=== PATIENT | female | born 1945 | race Caucasian/White ===

== ENCOUNTER → 2017-04-12 | Day surgery (SDC) | payer MEDICARE ==
[~2017-04-12] VITALS: Ht 157.5 cm; Wt 75.0 kg
[~2017-04-12] MED LIST: ACETAMINOPHEN 325 MG TAB PO PRN; ASPI81CH CHEW; CHLORHEXIDINE GLUCONATE 2 % 1 PACK (2 CLOTHS) TOPICAL PRN; CLON.5 PO; CYCLOPENTOLATE HCL 1% OPHT SOLN 2 ML BTL ONE; FLURBIPROFEN 0.03% OPHT SOLN 2.5 ML BTL ONE; FOLI1TAB6 PO; GABA300C5 PO; INSULIN HUMAN REGULAR 1,000 UNITS/10 ML VIAL SQ PRN; ISOS60TA PO; LACTATED RINGER'S 1000 ML IV PRN; LIDOCAINE HCL 1% PF 30 ML VIAL ONE; LIDOCAINE HCL 2% JELLY 5 ML SYRINGE ONE; LIDOCAINE HCL 2% JELLY 5 ML SYRINGE TOPICAL ONE; LISI40TA PO; METH0.35; METH2.5T PO; METO50TA PO; METOPROLOL TARTRATE 25 MG TAB PO PRN; MIDAZOLAM HCL 2 MG/2 ML VIAL IV ONE; NITR0.4S SL; NORV2.5T PO; NOVOLOGP2 SQ; NOVONP2 SQ; OMEG1CAP53 PO; PHENYLEPHRINE HCL 10% OPTH SOLN 5 ML BTL ONE; PLAV75TA29 PO; POVIDONE IODINE 5% (ANTISEPSIS KIT) 4 APPLICATIONS EACH NARE PRN; PRED20 PO; PROPARACAINE HCL 0.5% OPHT SOLN 15 ML BTL LEFT EYE ONE; PROPARACAINE HCL 0.5% OPHT SOLN 15 ML BTL ONE; SODIUM CHLORID 0.9% 500 ML IV PRN; TOBRAMYCIN/DEXAMETHASONE OPTH OINT 3.5 GM TUBE ONE; TROPICAMIDE 1% OPHT SOLN 15 ML BTL ONE; ULTR50TA5 PO; VENTAER INH; VISCOAT OPHT IRRIG SOLN 0.75 ML SYRINGE ONE; VITA1000 PO
[2017-04-12 06:43] VITALS: BP 163/78; PULSE 62; RESP 18; TEMP 98.9; O2SAT 100
[2017-04-12] MEDS: CYCLOPENTOLATE HCL 1% OPHT SOLN 2 ML BTL LEFT EYE SCH ×4 (06:52→07:07)
[2017-04-12] MEDS: PHENYLEPHRINE HCL 10% OPTH SOLN 5 ML BTL LEFT EYE SCH ×4 (06:52→07:07)
[2017-04-12] MEDS: TROPICAMIDE 1% OPHT SOLN 15 ML BTL LEFT EYE SCH ×4 (06:52→07:07)
[2017-04-12] MEDS: FLURBIPROFEN 0.03% OPHT SOLN 2.5 ML BTL LEFT EYE SCH ×4 (06:52→07:07)
[2017-04-12 09:00] VITALS: TEMP 98.6
[2017-04-12 09:15] VITALS: BP 146/66; PULSE 59; RESP 16; O2SAT 99
--- NOTE | 2017-04-12 10:44 | MP ---
cc: CHRISTOS SILVERIO M.D. [facility] #[id number] DATE OF SURGERY 04/12/2017 PREOPERATIVE DIAGNOSIS Visually significant cataract left eye. POSTOPERATIVE DIAGNOSIS Visually significant cataract left eye. OPERATION Phacoemulsification with posterior chamber lens implantation, left eye. SURGEON Christos Silverio MD ANESTHESIA Retrobulbar with MAC. COMPLICATIONS None PROCEDURE After informed consent was obtained, the patient was brought into the operative suite and placed on appropriate monitors by the Anesthesia Service. The patient had received a prior retrobulbar injection of local anesthetic by the Anesthesia Service in the holding area. The patient's operative eye was then prepped and draped in the usual sterile fashion. A wire lid speculum was placed. A paracentesis incision was made in the peripheral cornea with a 1 mm morgan keratome. The anterior chamber was filled with viscoelastic. The anterior chamber was then entered through a stepped, clear corneal incision using a sharp 3 mm morgan keratome. A circular tear capsulorrhexis was then made with a bent needle cystitome. Following hydrodissection of the lens nucleus with balanced saline, phacoemulsification of the nucleus was performed using a modified chopping technique. The remaining cortex was removed with irrigation/aspiration. The prior two procedures were both performed using the handpieces of the [employer] phaco unit. The capsular bag was then filled with viscoelastic. The intraocular lens was then injected into the capsular bag and positioned. The type of intraocular lens and its power can be found elsewhere in this chart. The remaining viscoelastic was then removed from the anterior chamber with the IA handpiece. The anterior chamber was reformed with balanced saline. The wound was then closed securely with stromal hydration. It was found to be watertight to an intraocular pressure of at least 30 mmHg by palpation. A small amount of balanced salt solution was then removed through the paracentesis site and the intraocular pressure at the end of the case was approximately 20 by palpation. All drapes were then removed. TobraDex ointment was then placed in the eye, which was closed beneath a semi-pressure patch dressing. The patient tolerated this procedure well and left the operating room awake and alert. The patient is to follow-up in my office in the morning. MD RAJNI Muir/KOSTAS /10:26 AM /10:39 AM
== END | disposition home or self-care (01) ==
LOC: PHSDC 06:25
PROVIDERS: ATTEND Optometrist Occupational Vision
DX: H25.812 Combined forms of age-related cataract, left eye (principal); H04.123 Dry eye syndrome of bilateral lacrimal glands; I12.9 Hypertensive chronic kidney disease with stage 1 through stage 4 chronic kidney disease, or unspecified chronic kidney disease; N18.9 Chronic kidney disease, unspecified; E11.21 Type 2 diabetes mellitus with diabetic nephropathy; M54.12 Radiculopathy, cervical region; I25.10 Atherosclerotic heart disease of native coronary artery without angina pectoris; J44.9 Chronic obstructive pulmonary disease, unspecified; K76.0 Fatty (change of) liver, not elsewhere classified; M79.7 Fibromyalgia; K21.9 Gastro-esophageal reflux disease without esophagitis; E78.5 Hyperlipidemia, unspecified; M19.90 Unspecified osteoarthritis, unspecified site; E55.9 Vitamin D deficiency, unspecified; M54.16 Radiculopathy, lumbar region; R00.1 Bradycardia, unspecified; I25.2 Old myocardial infarction; L40.50 Arthropathic psoriasis, unspecified; I08.0 Rheumatic disorders of both mitral and aortic valves; M54.81 Occipital neuralgia; E66.9 Obesity, unspecified; Z68.30 Body mass index [BMI] 30.0-30.9, adult; Z98.61 Coronary angioplasty status; Z87.891 Personal history of nicotine dependence; Z79.01 Long term (current) use of anticoagulants; Z79.82 Long term (current) use of aspirin; Z79.4 Long term (current) use of insulin; Z79.891 Long term (current) use of opiate analgesic; Z79.899 Other long term (current) drug therapy
CPT/HCPCS: 00142; 66984; 82948; J2250; J7040; V2632

== ENCOUNTER → 2017-05-24 | Day surgery (SDC) | payer MEDICARE ==
[~2017-05-24] VITALS: Ht 157.5 cm; Wt 75.0 kg
[~2017-05-24] MED LIST changes: -CYCLOPENTOLATE HCL 1% OPHT SOLN 2 ML BTL ONE; -FLURBIPROFEN 0.03% OPHT SOLN 2.5 ML BTL ONE; +ISOS30TA3 PO; -ISOS60TA PO; -LIDOCAINE HCL 2% JELLY 5 ML SYRINGE ONE; -METH0.35; -METH2.5T PO; +METH3INJ; -MIDAZOLAM HCL 2 MG/2 ML VIAL IV ONE; +MIDAZOLAM HCL 2 MG/2 ML VIAL ONE; -NOVOLOGP2 SQ; -PHENYLEPHRINE HCL 10% OPTH SOLN 5 ML BTL ONE; -PRED20 PO; -PROPARACAINE HCL 0.5% OPHT SOLN 15 ML BTL LEFT EYE ONE; -PROPARACAINE HCL 0.5% OPHT SOLN 15 ML BTL ONE; +PROPARACAINE HCL 0.5% OPHT SOLN 15 ML BTL RIGHT EYE ONE; -TROPICAMIDE 1% OPHT SOLN 15 ML BTL ONE; -VISCOAT OPHT IRRIG SOLN 0.75 ML SYRINGE ONE
[2017-05-24] MEDS: FLURBIPROFEN 0.03% OPHT SOLN 2.5 ML BTL RIGHT EYE SCH ×4 (07:25→07:40)
[2017-05-24] MEDS: TROPICAMIDE 1% OPHT SOLN 15 ML BTL RIGHT EYE SCH ×4 (07:25→07:40)
[2017-05-24] MEDS: CYCLOPENTOLATE HCL 1% OPHT SOLN 2 ML BTL RIGHT EYE SCH ×4 (07:25→07:40)
[2017-05-24] MEDS: PHENYLEPHRINE HCL 10% OPTH SOLN 5 ML BTL RIGHT EYE SCH ×4 (07:25→07:40)
[2017-05-24 09:25] VITALS: BP 142/54; PULSE 58; RESP 16; TEMP 98.5; O2SAT 96
--- NOTE | 2017-05-24 16:21 | MP ---
cc: CHRISTOS SILVERIO M.D. [facility] NUMBER: [id number] DATE OF SURGERY: 05/24/2017 PREOPERATIVE DIAGNOSIS: Visually significant cataract right eye. POSTOPERATIVE DIAGNOSIS: Visually significant cataract right eye. OPERATION: Phacoemulsification with posterior chamber lens implantation, right eye. SURGEON: Christos Silverio MD ANESTHESIA: Topical with MAC. COMPLICATIONS: None. PROCEDURE: After informed consent was obtained, the patient was brought into the operative suite and placed on appropriate monitors by the Anesthesia Service. The patient had been given dilating drops and topical lidocaine gel in the holding area. The patient's operative eye was then prepped and draped in the usual sterile fashion. A wire lid speculum was placed. Further 2% lidocaine was then dropped on the cornea prior to beginning the procedure. A paracentesis incision was made in the peripheral cornea with a 1 mm morgan keratome. The anterior chamber was filled with viscoelastic. The anterior chamber was then entered through a stepped, clear corneal incision using a sharp 3 mm morgan keratome. A circular tear capsulorrhexis was then made with a bent needle cystitome. Following hydrodissection of the lens nucleus with balance saline, phaco-emulsification of the nucleus was performed using a modified chopping technique. The remaining cortex was removed with irrigation/aspiration. The prior two procedures were both performed using the handpieces of the [employer] phaco unit. The capsular bag was then filled with viscoelastic. The intraocular lens was then injected into the capsular bag and positioned. The type of intraocular lens and its power can be found elsewhere in this chart. The remaining viscoelastic was then removed from the anterior chamber with the IA handpiece. The anterior chamber was reformed with balanced saline. The wound was then closed securely with stromal hydration. It was found to be watertight to an intraocular pressure of at least 30 mmHg by palpation. A small amount of balanced salt solution was then removed through the paracentesis site and the intraocular pressure at the end of the case was approximately 20 by palpation. All drapes were then removed. TobraDex ointment was then placed in the eye, which was closed beneath a semi-pressure patch dressing. The patient tolerated this procedure well and left the operating room awake and alert. The patient is to follow-up in my office in the morning. MD Cherry Muir /10:02 AM /4:16 PM
== END | disposition home or self-care (01) ==
LOC: PHSDC 06:32
PROVIDERS: ATTEND Optometrist Occupational Vision
DX: H26.9 Unspecified cataract (principal)
CPT/HCPCS: 00142; 66984; J2250; J7040; V2632

== ENCOUNTER → 2017-08-31 | Outpatient (CLI) | payer MEDICARE ==
[~2017-08-31] MED LIST changes: -ACETAMINOPHEN 325 MG TAB PO PRN; +ADJUSTABLE COMM1 MIS; +ASPI-516 CHEW; -ASPI81CH CHEW; -CHLORHEXIDINE GLUCONATE 2 % 1 PACK (2 CLOTHS) TOPICAL PRN; +CPMMACHINE; -INSULIN HUMAN REGULAR 1,000 UNITS/10 ML VIAL SQ PRN; -LACTATED RINGER'S 1000 ML IV PRN; -LIDOCAINE HCL 1% PF 30 ML VIAL ONE; -LIDOCAINE HCL 2% JELLY 5 ML SYRINGE TOPICAL ONE; -METOPROLOL TARTRATE 25 MG TAB PO PRN; -MIDAZOLAM HCL 2 MG/2 ML VIAL ONE; -POVIDONE IODINE 5% (ANTISEPSIS KIT) 4 APPLICATIONS EACH NARE PRN; -PROPARACAINE HCL 0.5% OPHT SOLN 15 ML BTL RIGHT EYE ONE; -SODIUM CHLORID 0.9% 500 ML IV PRN; -TOBRAMYCIN/DEXAMETHASONE OPTH OINT 3.5 GM TUBE ONE; +TRAM50 PO; -ULTR50TA5 PO; +WALKER WHEELS/F1 MIS
[2017-08-31 09:17] LABS: BILIRUBIN, URINE NEG (NEG); BLOOD, URINE NEG (NEG); GLUCOSE,URINE NEG (NEG); KETONE, URINE NEG (NEG); MUCUS URINE FEW /lpf (OCC); NITRITE,URINE NEG (NEG); SQUAMOUS EPITHELIAL CELL URINE 1 /hpf (0-5); URINE COLOR LIGHT-YELLOW (YELLW/STRAW); URINE LEUKOCYTE ESTERASE NEG (NEG)
== END ==
LOC: CPRE 07:58
PROVIDERS: ATTEND Surgery
DX: Z01.812 Encounter for preprocedural laboratory examination (principal)
CPT/HCPCS: 81001

== ENCOUNTER 2017-09-11 05:25 | Inpatient (IN) | payer MEDICARE ==
--- NOTE | 2017-09-05 14:53 | MH ---
cc: Tim LAM MD DATE OF ADMISSION 09/11/2017 ADMISSION DIAGNOSIS Osteoarthritic degeneration left knee now being admitted for left total knee arthroplasty. ADMISSION HISTORY AND PHYSICAL This is a pleasant 72-year-old diabetic female who is being admitted today for a left total knee arthroplasty due to severe painful osteoarthritic degeneration left knee. OTHER PAST HISTORY The patient has a medical history of: 1. Diabetes 2. Anxiety 3. Dizziness 4. Emphysema 5. Heart problems 6. Hypertension 7. Neck and back pain with sciatica. CURRENT MEDICATIONS Include: 1. Metoprolol 2. Lisinopril 3. Isosorbide 4. Aspirin 81 mg a day 5. Novolin 6. NovoLog 7. Methotrexate 8. Nitroglycerin 9. Prilosec 10. She was on Plavix which stopped before surgery. PREVIOUS SURGERIES Include: 1. Heart stent 2. Coronary artery bypass 3. Arthroscopic surgery on her knee. 4. Hysterectomy SOCIAL HISTORY She does not smoke or drink. REVIEW OF SYSTEMS Noncontributory. FAMILY HISTORY Noncontributory. ALLERGIES SHE IS ALLERGIC TO SULFA AND ERYTHROMYCIN, ARAVA, CIPRO, STATINS, NIACIN, FLEXERIL, TRILIPIX AND ENBREL. PHYSICAL EXAM We find a 72-year female well-developed, well-nourished oriented x3 complaining of pain in her left knee. VITAL SIGNS: Blood pressure 142/78, pulse 56 and regular, respirations 18, temperature 98.2, pulse oximetry 97% on room air. HEENT: Eyes PERRL, EOMI. Ears, nose, mouth clear. NECK: Supple. LUNGS: Clear. HEART: Regular rate. ABDOMEN: Soft. Positive bowel sounds, nontender. EXTREMITIES: Reveals the left knee to have crepitance on range of motion. She lacks 5 degrees short of full extension. She is otherwise neurovascularly to her toes. IMPRESSION Severe painful osteoarthritic degeneration left knee. PLAN Admission for left total knee arthroplasty today. The patient given prescription for postoperative pain, anticoagulation control in the office. She understands to use Hibiclens scrub and Bactroban preoperatively and plans on going home after surgical stay in the hospital. JMD GARY Zavaleta/KOSTAS /2:15 PM /2:30 PM
[~2017-09-11] VITALS: Ht 157.5 cm; Wt 77.3 kg
[~2017-09-11 05:25] MED LIST changes: -ADJUSTABLE COMM1 MIS; -CPMMACHINE; -WALKER WHEELS/F1 MIS
[2017-09-11] MEDS ORDERED: POVIDONE IODINE 5% (ANTISEPSIS KIT) 4 APPLICATIONS EACH NARE PRN (06:00)
[2017-09-11] MEDS ORDERED: CHLORHEXIDINE GLUCONATE 2 % 1 PACK (2 CLOTHS) TOPICAL PRN (06:00)
[2017-09-11] MEDS ORDERED: LACTATED RINGER'S 1000 ML IV PRN (06:00)
[2017-09-11] MEDS ORDERED: VANCOMYCIN 1000 MG/NS 250 ML (for <70 kg) IV SCH ×2 (06:00)
[2017-09-11] MEDS ORDERED: CHLORHEXIDINE GLUCONATE 4% SOLN 120 ML BTL TOPICAL SCH (06:00)
[2017-09-11] MEDS ORDERED: SODIUM CHLORID 0.9% 500 ML IV PRN (06:00)
[2017-09-11] MEDS ORDERED: METOPROLOL TARTRATE 25 MG TAB PO PRN (06:00)
[2017-09-11] MEDS ORDERED: ceFAZolin 2 GM PREMIX 50 ML IV SCH (06:00)
[2017-09-11 06:23] LABS: BICARBONATE 25.9 MEQ/L (21.0-32.0); CALCIUM 9.2 MG/DL (8.5-10.1); CREATININE 0.83 MG/DL (0.50-1.00)
[2017-09-11] MEDS ORDERED: INSULIN HUMAN REGULAR 1,000 UNITS/10 ML VIAL ONE (06:32)
[2017-09-11] MEDS ORDERED: ceFAZolin INJ 1,000 MG VIAL ONE (06:51)
[2017-09-11] MEDS ORDERED: PROPOFOL 500 MG/50 ML INJ 0 ML ONE (06:52)
[2017-09-11] MEDS ORDERED: BUPIVACAINE HCL PF 0.5% 30 ML VIAL ONE (06:53)
[2017-09-11] MEDS ORDERED: DEXAMETHASONE SOD PHOS PF 10 MG/ML VIAL ONE (06:53)
[2017-09-11] MEDS ORDERED: DEXAMETHASONE SOD PHOS 20 MG/5 ML VIAL IV SCH (07:00)
[2017-09-11] MEDS ORDERED: TRANEXAMIC ACID INJ 773 MG in SODIUM CHLORIDE 0.9% INJ 100 ML IV SCH ×2 (08:00→11:00)
[2017-09-11] MEDS ORDERED: SODIUM CHLOR 0.9% P-ARTICULR SCH (08:00)
[2017-09-11] MEDS ORDERED: BUPIVACAINE LIPOSO 1.3% P-ARTICULR SCH (08:00)
--- NOTE | 2017-09-11 08:06 | HHI.FF ---
Face to Face Verification Diagnosis: (1) Status post total left knee replacement Physical Therapy Gait training Knee: Total knee, Protocol: Left, Full weight bearing Canvas Knee Splint: When in bed & 2 pillows btw thighs Nursing RN: 3 days/week x 2 weeks Nursing: Dressing changes Dressing Changes: Daily dressing change, 4x4s, Gauze, Paper tape I have seen patient Sonal Cm on 09/11/17. My clinical findings support the need for the requested home health care services because: Limited ability to care for self High risk of falls I certify that my clinical findings support that this patient is homebound because: Unsteady gait/balance Tim Whitman MD Sep 11, 2017 08:06
[2017-09-11] MEDS ORDERED: WALKER WHEELS/F1 MIS (08:11)
[2017-09-11] MEDS ORDERED: ADJUSTABLE COMM1 MIS (08:12)
[2017-09-11] MEDS ORDERED: CPMMACHINE (08:12)
[2017-09-11] MEDS ORDERED: EXPAREL PERI-ARTICULAR INJECTION (TOTAL VOL. 120 ML) P-ARTICULR SCH ×2 (08:15)
[2017-09-11] MEDS ORDERED: TRANEXAMIC ACID INJ 0 MG in SODIUM CHLORIDE 0.9% INJ 100 ML IV SCH (08:15)
[2017-09-11] MEDS ORDERED: NALOXONE HCL 0.4 MG/ML AMP IV PUSH PRN (08:45)
[2017-09-11] MEDS ORDERED: ONDANSETRON HCL 4 MG/2 ML VIAL IVP PRN (08:45)
[2017-09-11] MEDS ORDERED: ACETAMINOPHEN 325 MG TAB PO PRN (08:45)
[2017-09-11] MEDS: GABAPENTIN 300 MG CAP PO SCH ×3 (09:00→16:30)
[2017-09-11] MEDS ORDERED: NITROGLYCERIN 0.4 MG SL 25 TABS/BTL SL PRN (09:00)
[2017-09-11] MEDS ORDERED: Post-op Orders (for Pharmacy) XX ONE (09:00)
[2017-09-11] MEDS: CHOLECALCIFEROL (VIT D3) 1000 UNIT TAB PO SCH (09:00)
[2017-09-11] MEDS ORDERED: NON-FORMULARY DRUG (Omega-3-Acid Ethyl Esters (Lovaza) 2 GM) PO SCH (09:00)
[2017-09-11] MEDS: FOLIC ACID 1 MG TAB PO SCH (09:00)
[2017-09-11] MEDS ORDERED: ASPIRIN 81 MG CHEW TAB CHEW SCH (09:00)
[2017-09-11] MEDS ORDERED: ALBUTEROL SULFATE 90 MCG/ACT HFA 8 GM INHALER INH PRN (09:00)
[2017-09-11] MEDS ORDERED: diphenhydrAMINE HCL 50 MG/ML VIAL IV PUSH PRN (09:00)
[2017-09-11] MEDS: clonazePAM 0.5 MG TAB PO SCH ×2 (09:00→20:50)
[2017-09-11] MEDS: INSULIN HUMAN NPH 1,000 UNITS/10 ML VIAL SQ SCH ×2 (10:15→21:17)
[2017-09-11] MEDS ORDERED: DO NOT ADM ANY ANTICOAGULANT DRUGS PRN (10:46)
[2017-09-11] MEDS ORDERED: MIDAZOLAM HCL 2 MG/2 ML VIAL ONE (10:56)
[2017-09-11] MEDS: LACTATED RINGER'S 1000 ML INJ 1,000 ML IV SCH ×2 (11:11→20:51)
[2017-09-11] MEDS ORDERED: *morphine SULFATE 4 MG/ML PERIprocedure ONLY ONE ×2 (11:18→11:35)
--- NOTE | 2017-09-11 11:18 | MP ---
cc: Ladi WHITMAN. DATE OF SURGERY 09/11/2017 PREOPERATIVE DIAGNOSIS Osteoarthritic degeneration left knee. POSTOPERATIVE DIAGNOSIS Osteoarthritic degeneration left knee. SURGERY PERFORMED Left total knee arthroplasty using Consensus components with Bespoke protocol sizes 4 femur, 2 tibia, 10 insert and 1 patella two batches of DePuy cement. SURGEON Dr. Whitman HEADER SET UP OPERATOR Yomi Winters ANESTHESIA General intubation and block PROCEDURE FOLLOWS After successful induction of anesthesia, the patient is placed on the operating room table in the supine position. The knee is prepped and draped in the usual manner. A tourniquet is inflated at the upper thigh and set to 300 mmHg pressure after exsanguination of the lower extremity. A longitudinal incision is made extending from 3 inches proximal to the superior pole of the patella, across the patella in longitudinal fashion, and down past the insertion of the tibial tubercle into the proximal tibia. The incision is carried down through subcutaneous tissue along the medial aspect of the patella and retinaculum, down through the capsule to expose the knee joint. The patella and patellar tendon are freed up enough to allow the patella to be inverted and retracted off the lateral side of the knee joint. The knee joint is left exposed. Small osteophytes are removed. All soft tissue is removed to allow proper position of the femoral and tibial cutting jig guide. The first femoral jig is then inserted along the distal end of the femur after first measuring to decide whether this is a small, medium, or large component. The notch is then drilled and the tibial cutting guide inserted into the femoral cutting guide, along with the ankle brace to allow for proper measurement of the tibial cutting surface that needed to be resected. Pins are inserted into the tibial cutting jig and femoral cutting jig to hold them in place. An oscillating saw is then used to resect the surface of the tibia. The surface of the tibia is then completely removed using sharp and blunt dissection. The anterior and posterior cuts of the femur are then made as well using an oscillating saw through the cutting guide. All guides are then removed and the varus/valgus angulation cutting guide applied to the femur for proper measurement of the proper amount of valgus. The anterior cutting guide for the femur is then inserted at the anterior femoral cuts made. Next, the first block trial is inserted into the femur to allow for proper condyle drill holes to be made which are then made followed by removal of the bone between the condyles using an oscillating saw as well as the bone removed at the most posterior surface of the condyle. After this, this guide is removed and the chamfer cuts made using the chamfer cutting guide from both anterior and posterior. Next, the femoral trial is then inserted, the tibial surface reflected anterior to expose the tibial surface and a tibial stem guide is inserted after first measuring for a standard, standard plus, large, or large plus surface to be used. After the stem is impacted the trial tibial surface is applied followed by the trial meniscal components. After full range of motion is found with the appropriate length meniscal components varying the patella is prepared by resecting the posterior aspect of the patella using an oscillating saw, inserting a trial. The trial is then removed and the cruciate cutting guide applied using the bur to cut the cruciate cuts. After cruciate cuts are made all trials are removed. The wound is irrigated copiously with antibiotic solution and Water-Pik and the actual components inserted into place using the aforementioned components. After the cement has hardened and the components are found to have full range of motion with no instability. Tourniquet deflated, total tourniquet time being 57 minutes at 300 mmHg. 120 cc's of Exparel used around the knee joint for extra pain control. Deep fascia approximated with running #2 quill. Subcutaneous tissue approximated with interrupted 2-0 and 3-0 Monocryl suture. Steri-Strips, sterile dressing, and knee immobilizer. No drain utilized. ESTIMATED BLOOD LOSS 50 cc. Sponge and suture correct. The patient tolerated the procedure well and left the operating in satisfactory condition. J. MD GARY Finley/KOSTAS /10:17 AM /10:44 AM
[2017-09-11] MEDS ORDERED: *ONDANSETRON 4 MG VIAL PERIprocedural Use ONLY ONE (11:35)
--- NOTE | 2017-09-11 11:43 | RADRPT ---
EXAM DATE/TIME: 09/11/2017 10:59 [facility] COMPARISON: No previous studies available for comparison. INDICATIONS : Post op left total knee. MEDICAL HISTORY : None. SURGICAL HISTORY : None. ENCOUNTER: Initial ACUITY: 1 day PAIN SCORE: Non-responsive. LOCATION: Left knee. FINDINGS: Total knee arthroplasty is in place. The femoral, tibial, and patellar components appear intact. Th ere are no signs of loosening or fracture. CONCLUSION: Intact total knee arthroplasty for technique. HortonLuis Enrique Boyd MD on September 11, 2017 at 11:41 Board Certified Radiologist. This report was verified electronically.
[2017-09-11 12:00] VITALS: BP 130/50; PULSE 66; RESP 16; TEMP 96.5; O2SAT 93
[2017-09-11] MEDS: amLODIPine BESYLATE 5 MG TAB PO SCH (12:00)
[2017-09-11] MEDS: METOPROLOL TARTRATE 50 MG TAB PO SCH ×2 (12:00→20:50)
[2017-09-11] MEDS: ISOSORBIDE MONONITRATE 60 MG TAB PO SCH (12:00)
[2017-09-11] MEDS ORDERED: PILL SPLITTER OTHER PRN (12:00)
[2017-09-11] MEDS: LISINOPRIL 20 MG TAB PO SCH (12:00)
[2017-09-11 15:55] VITALS: BP 120/48; PULSE 67; RESP 17; TEMP 96; O2SAT 98
[2017-09-11] MEDS: ACETAMINOPHEN/HYDROcodone 325 MG/7.5 MG TAB PO PRN (16:29)
--- NOTE | 2017-09-11 16:57 | PD.CONS ---
HPI Service [facility] Hospitalists Consult Requested By Dr. Juarez Whitman Reason for Consult Medical Management Primary Care Physician Jesus Hoskins D.O. Diagnoses: History of Present Illness Mrs. Cm is a pleasant 72 y/o female with HTN, hyperlipidemia, diabetes mellitus, diabetic nephropathy, COPD, CAD with hx of [place] and osteoarthritis. Pt was admitted to [facility] on 09/11/16 for left total knee arthroplasty with Dr. Whitman. [facility] Hospitalist team was consulted to help with managing the patients chronic medical issues. Pt is seen post-operatively on the Orthopedic floor. Her blood sugars have been running a bit high this afternoon post-operatively. She normally takes NovoLin N 50 units BID. She is currently on 3L via NC. Pt uses Ventolin Inhaler as needed at home for her COPD. She is also on Norvasc 2.5 daily, Imdur 60mg daily, Metoprolol 50mg BID and Lisinopril 40mg daily for her CAD/HTN management. She also takes Plavix and ASA. Currently her pain is controlled. Denies any nausea/vomiting, abd pain, chest pain, SOB, or palpitations. 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 Excision of Bakers cyst, left knee Exploratory laparotomy with PABLITO in 1984 for SBO NATALIE with BSO Rotator cuff repair Reported Medications -Rasuvo (Methotrexate (Antirheumatic)) 7.5 Mg/0.15 Ml Inj 17.5 WEEKLY -Isosorbide Mononitrate ER 60 Mg PO DAILY -Novolin N Inj 50 Units SQ BID -Ultram 50 Mg PO QID PRN -Lovaza (Nluza-2-Bawx Ethyl Esters) 2 Gm PO BID -Nitrostat SL (Nitroglycerin) 0.4 Mg Subl 0.4 Mg SL DIRECTED PRN -Metoprolol Tartrate 50 Mg PO BID -Lisinopril 40 Mg PO DAILY -Gabapentin 300 Mg PO TID -Folic Acid 1 Mg PO DAILY -Plavix 75 Mg PO DAILY -Klonopin 0.5 Mg PO BID -Vitamin D 2,000 Units PO EVERY OTHER DAY -Aspirin 81 Mg CHEW DAILY -Norvasc 2.5 Mg PO DAILY -Ventolin Hfa 18 GM Inh 90 Mcg/Act Aer 2 Puff INH Q4-6H PRN Allergies: Coded Allergies: Sulfa (Sulfonamide Antibiotics) (Unverified Allergy, Severe, Rash, 09/11/17) azithromycin (Unverified Allergy, Severe, Rash, 09/11/17) budesonide (Verified Allergy, Severe, NAUSEA, PANIC ATTACKS, 09/11/17) IN NEBULIZER TREATMENTS ciprofloxacin (Unverified Allergy, Severe, "CAN'T REMEMBER", 09/11/17) PATIENT CANNOT RECALL TYPE OF REACTION erythromycin base (Unverified Allergy, Severe, Rash, 09/11/17) leflunomide (Unverified Allergy, Severe, Rash, 09/11/17) ITCHING; DEVELOPED ECZEMA montelukast (Verified Allergy, Severe, NAUSEA, 09/11/17) amlodipine (Unverified Allergy, Unknown, MUSCLE ACHES, 05/24/17) atorvastatin (Unverified Allergy, Unknown, MUSCLE ACHES, 09/11/17) choline fenofibrate (Unverified Allergy, Unknown, "CANNOT REMEMBER", ) cyclobenzaprine (Unverified Allergy, Unknown, "CANNOT REMEMBER", 09/11/17) pravastatin (Unverified Allergy, Unknown, MUSCLE ACHES, 09/11/17) simvastatin (Unverified Allergy, Unknown, MUSCLE ACHES, 09/11/17) niacin (Unverified Adverse Reaction, Severe, Cramping, 09/11/17) infliximab (Unverified Adverse Reaction, Unknown, Nausea/Vomiting, 09/11/17) infliximab-dyyb (Unverified Adverse Reaction, Unknown, Nausea/Vomiting, 09/11/17) Uncoded Allergies: enbrel (Adverse Reaction, Unknown, Itching, 05/18/16) Family History Mother with hx of stomach cancer Brother with hx of liver cirrhosis Social History Hx of tobacco use, quit in 1994 Denies any regular alcohol use Denies any illicit drug use Pt lives locally with her Physical Exam Vital Signs Vital Signs Date Time Temp Pulse Resp B/P (MAP) Pulse Ox O2 Delivery O2 Flow Rate FiO2 09/11/17 11:45 98.1 62 16 162/65 (97) 96 Nasal Cannula 3 09/11/17 11:30 62 16 162/67 (98) 97 Nasal Cannula 4 09/11/17 11:15 59 14 164/70 (101) 96 Nasal Cannula 4 09/11/17 11:00 63 12 161/71 (101) 96 Nasal Cannula 4 09/11/17 10:48 99.6 72 13 157/67 (97) 94 Nasal Cannula 4 09/11/17 06:00 98.6 58 20 159/64 (95) 99 Physical Exam GENERAL: This is a well-nourished, well-developed patient, in no apparent distress. HEENT: Atraumatic. Normocephalic. No temporal or scalp tenderness. No scleral icterus. Airway patent. NECK: Trachea midline, supple, nontender. CARDIO: Regular. RESP: CTA bilaterally. No wheezes, rales, or rhonchi. ABD: +BS, soft, non-tender, nondistended. EXT: Left knee bandages are c/d/i NEURO: Awake and alert. Motor and sensory grossly within normal limits. Normal speech. Laboratory Laboratory Tests Test 09/11/17 06:00 Blood Urea Nitrogen 17 Creatinine 0.83 Random Glucose 212 Calcium Level 9.2 Sodium Level 138 Potassium Level 4.2 Chloride Level 105 Carbon Dioxide Level 25.9 Anion Gap 7 Estimat Glomerular Filtration Rate 67 Result Diagram: 09/11/17 0600 Imaging Last Impressions Knee X-Ray 09/11/17 0802 Signed Impressions: Service Date/Time: Monday, September 11, 2017 10:59 - CONCLUSION: Intact total knee arthroplasty for technique. K. Guy Boyd MD Assessment and Plan Problem List: (1) Osteoarthritis of left knee ICD Codes: M17.12 - Unilateral primary osteoarthritis, left knee Status: Chronic Plan: - Patient is a 72 y/o female with osteoarthritis, HTN, CAD, Hyperlipidemia, COPD , and diabetes mellitus who was admitted to [facility] on 09/11/17 for left total knee arthroplasty with Dr. Whitman - Post-op pain control per Ortho - IS - PT daily - Constipation precautions - DVT prophylaxis with Eliquis (2) DM (diabetes mellitus) ICD Codes: E11.9 - Type 2 diabetes mellitus without complications Status: Chronic Plan: - NovoLog SSI - Accu checks - Pt may need Levemir added for basal insulin coverage depending on what her BS does during admission (3) HTN (hypertension) ICD Codes: I10 - Essential (primary) hypertension Status: Chronic Plan: - Home meds continued - Monitor (4) Hyperlipidemia ICD Codes: E78.5 - Hyperlipidemia, unspecified Status: Chronic Plan: - Pt does not tolerate statins - Diet controlled - Continued outpatient management upon discharge (5) CAD (coronary artery disease) ICD Codes: I25.10 - Atherosclerotic heart disease of jamul coronary artery without angina pectoris Status: Chronic Plan: - Pt follows with Dr. Carreno as an outpt - Home meds continued (6) Psoriatic arthritis ICD Codes: L40.50 - Arthropathic psoriasis, unspecified Status: Chronic Problem Qualifiers (1) Osteoarthritis of left knee: Qualified Codes: M17.12 - Unilateral primary osteoarthritis, left knee (2) DM (diabetes mellitus): Mag Kirby Sep 11, 2017 16:57
[2017-09-11] MEDS: INSULIN ASPART SUPPLEMENTAL SCALE SQ SCH ×2 (17:00→21:18)
[2017-09-11] MEDS ORDERED: RESP: ALBUTEROL 2.5 MG/IPRATROPIUM 0.5 MG NEB (PRN) NEB (17:00)
[2017-09-11 20:00] VITALS: BP 151/60; PULSE 75; RESP 18; TEMP 97; O2SAT 96
[2017-09-11] MEDS: MORPHINE SULFATE 2 MG/ML INJ IV PUSH PRN (20:50)
[2017-09-11] MEDS ORDERED: TEMAZEPAM 15 MG CAP PO PRN (21:00)
[2017-09-11] MEDS ORDERED: CALCIUM CARBONATE 500 MG CHEWABLE TAB PO PRN (21:00)
--- NOTE | 2017-09-11 21:23 | RADRPT ---
EXAM DATE/TIME: 09/11/2017 21:03 [facility] COMPARISON: CHEST SINGLE AP, May 18, 2016, 22:47. INDICATIONS : Chest pain. MEDICAL HISTORY : Gastroesophageal reflux disease. Diabetes mellitus type II. Chronic obstructive pulmonary diseas e. Cardiovascular disease. SURGICAL HISTORY : CABG. Cardiac stents. ENCOUNTER: Initial ACUITY: 1 day PAIN SCORE: 5/10 LOCATION: Bilateral chest FINDINGS: A single view of the chest demonstrates the lungs to be symmetrically aerated without evidence of mas s, infiltrate or effusion. Status post CABG. The cardiomediastinal contours are unremarkable. [place] us structures are intact. CONCLUSION: No acute disease. Lino Nicholson MD on September 11, 2017 at 21:21 Board Certified Radiologist. This report was verified electronically.
[2017-09-11 21:48] LABS: AMORPHOUS SEDIMENT, URINE RARE; BILIRUBIN, URINE NEG (NEG); BLOOD, URINE NEG (NEG); GLUCOSE,URINE 1000 mg/dL (NEG); HYALINE CAST, URINE 3 /lpf (RARE); KETONE, URINE NEG (NEG); NITRITE,URINE NEG (NEG); PH, URINE 6.5 (5.0-8.5); SQUAMOUS EPITHELIAL CELL URINE <1 /hpf (0-5); URINE COLOR YELLOW (YELLW/STRAW); URINE LEUKOCYTE ESTERASE NEG (NEG)
[2017-09-11 22:06] LABS: TROPONIN I LESS THAN 0.02 NG/ML (0.02-0.05)
--- NOTE | 2017-09-11 23:12 | HHI.PR ---
Subjective Remarks Patient s/p total left knee surgery today ,without complications with hx CAD VT about 1 year or so ago with hx cardiac stents had heaviness this evening lasting about 2 hours mid chest no radiation or diaphoresis and no recurrence . Patient did have some belching which seemed to help and insertion of youngblood catheter as had no urine out put which did obtain over 500 cc urine . EKG was done and shows inferior changes as compared to old ekg enzymes are negative first set . I will transfer patient to [facility] and have discussed with Order Fulfillment Specialist and will consult ,patient has requested we consult her straightener as well. Denies any SOB . Objective Vitals GENERAL: SKIN: Warm and dry. HEAD: Atraumatic. Normocephalic. EYES: Pupils equal and round. No scleral icterus. No injection or drainage. ENT: No nasal bleeding or discharge. Mucous membranes pink and moist. NECK: Trachea midline. No JVD. CARDIOVASCULAR: Regular rate and rhythm. RESPIRATORY: No accessory muscle use. Clear to auscultation. Breath sounds equal bilaterally. GASTROINTESTINAL: Abdomen soft, non-tender, nondistended. Hepatic and splenic margins not palpable. MUSCULOSKELETAL: S/P total left knee arthroplasty NEUROLOGICAL: Awake and alert. No obvious cranial nerve deficits. Motor grossly within normal limits. Five out of 5 muscle strength in the arms and legs. Normal speech. PSYCHIATRIC: Appropriate mood and affect; insight and judgment normal. Vital Signs Date Time Temp Pulse Resp B/P (MAP) Pulse Ox O2 Delivery O2 Flow Rate FiO2 09/11/17 20:00 97.0 75 18 151/60 (90) 96 09/11/17 17:29 20 09/11/17 15:55 96.0 67 17 120/48 (72) 98 09/11/17 12:00 96.5 66 16 130/50 (76) 93 09/11/17 11:45 98.1 62 16 162/65 (97) 96 Nasal Cannula 3 09/11/17 11:30 62 16 162/67 (98) 97 Nasal Cannula 4 09/11/17 11:15 59 14 164/70 (101) 96 Nasal Cannula 4 09/11/17 11:00 63 12 161/71 (101) 96 Nasal Cannula 4 09/11/17 10:48 99.6 72 13 157/67 (97) 94 Nasal Cannula 4 09/11/17 06:00 98.6 58 20 159/64 (95) 99 09/11/17 09/11/17 09/12/17 15:00 23:00 07:00 Intake Total 1280 ml Output Total 3050 ml Balance -1770 ml Intake Oral 480 ml IV Total 800 ml Output Estimated Blood Loss 50 ml Other 3000 ml # Voids 0 # Bowel Movements 0 Result Diagram: 09/11/17 0600 Imaging Last Impressions Knee X-Ray 09/11/17 0802 Signed Impressions: Service Date/Time: Monday, September 11, 2017 10:59 - CONCLUSION: Intact total knee arthroplasty for technique. Felder Guy Boyd MD A/P Problem List: (1) Osteoarthritis of left knee ICD Codes: M17.12 - Unilateral primary osteoarthritis, left knee Status: Chronic Plan: - Patient is a 72 y/o female with osteoarthritis, HTN, CAD, Hyperlipidemia, COPD , and diabetes mellitus who was [place] [facility] [place] for left total knee arthroplasty with Dr. Whitman - Post-op pain control per Ortho - IS - PT daily - Constipation precautions - DVT prophylaxis with Eliquis (2) DM (diabetes mellitus) ICD Codes: E11.9 - Type 2 diabetes mellitus without complications Status: Chronic Plan: - NovoLog SSI - Accu checks - Pt may need Levemir added for basal insulin coverage depending on what her BS does during admission (3) HTN (hypertension) ICD Codes: I10 - Essential (primary) hypertension Status: Chronic Plan: - Home meds continued - Monitor (4) Hyperlipidemia ICD Codes: E78.5 - Hyperlipidemia, unspecified Status: Chronic Plan: - Pt does not tolerate statins - Diet controlled - Continued outpatient management upon discharge (5) CAD (coronary artery disease) ICD Codes: I25.10 - Atherosclerotic heart disease of [place] coronary artery without angina pectoris Status: Chronic Plan: - Pt follows with Dr. Carreno as an outpt - Home meds continued (6) Psoriatic arthritis ICD Codes: L40.50 - Arthropathic psoriasis, unspecified Status: Chronic (7) Chest pain ICD Codes: R07.9 - Chest pain, unspecified Status: Acute Plan: transfer to [facility] consult Order Fulfillment Specialist and cardiology obtain serial ekg and enzymes,pain free at present Problem Qualifiers (1) Osteoarthritis of left knee: Qualified Codes: M17.12 - Unilateral primary osteoarthritis, left knee (2) DM (diabetes mellitus): Tello Dumont MD Sep 11, 2017 23:12
[2017-09-12] VITALS (14 sets, daily range): BP systolic 144–174; BP diastolic 53–91; PULSE 48–83; RESP 13–25; TEMP 97.1–98.7; O2SAT 93–98
[2017-09-12] MEDS: MORPHINE SULFATE 2 MG/ML INJ IV PUSH PRN (00:08)
--- NOTE | 2017-09-12 03:09 | PD.CONS ---
[facility] Service Critical Care Medicine Consult Requested By Dr. Dumont Reason for Consult chest pain Primary Care Physician Jesus Hoskins D.O. History of Present Illness 72 yo female with past medical history of rheumatoid arthritis, coronary artery disease with prior myocardial infarction, prior CABG and stents , hyperlipidemia, hypertension, diabetes, anxiety, GERD. She underwent left total knee arthroplasty 09/11/17. EBL was 50 mL. She states she was sitting in bed when she developed chest pressure in her mid chest, nonradiating. She states it lasted a few minutes went away then came back for couple of minutes and then resolved. It resolved spontaneously without therapy and she is now chest pain free. She had no associated shortness of breath, nausea, vomiting, diaphoresis. She states she had an LA a year ago but this did not feel like her prior myocardial infarction. She states it feels similar to prior symptoms she had when she had reflux although in on this occasion she did not notice any regurgitation. EKG demonstrates ST depression V3/V4 . Troponin is negative. She states she had a negative nuclear stress preoperatively. Review of Systems Constitutional: DENIES: Diaphoretic episodes, Fever, Weight gain Cardiovascular: COMPLAINS OF: Chest pain, DENIES: Palpitations, Syncope Gastrointestinal: DENIES: Vomiting Musculoskeletal: COMPLAINS OF: Joint pain, DENIES: Back pain, Neck pain Neurologic: DENIES: Headache Psychiatric: COMPLAINS OF: Anxiety Past Family Social History Allergies: Coded Allergies: Sulfa (Sulfonamide Antibiotics) (Unverified Allergy, Severe, Rash, 09/11/17) azithromycin (Unverified Allergy, Severe, Rash, 09/11/17) budesonide (Verified Allergy, Severe, NAUSEA, PANIC ATTACKS, 09/11/17) IN NEBULIZER TREATMENTS ciprofloxacin (Unverified Allergy, Severe, "CAN'T REMEMBER", 09/11/17) PATIENT CANNOT RECALL TYPE OF REACTION erythromycin base (Unverified Allergy, Severe, Rash, 09/11/17) leflunomide (Unverified Allergy, Severe, Rash, 09/11/17) ITCHING; DEVELOPED ECZEMA montelukast (Verified Allergy, Severe, NAUSEA, 09/11/17) amlodipine (Unverified Allergy, Unknown, MUSCLE ACHES, 05/24/17) atorvastatin (Unverified Allergy, Unknown, MUSCLE ACHES, 09/11/17) choline fenofibrate (Unverified Allergy, Unknown, "CANNOT REMEMBER", ) cyclobenzaprine (Unverified Allergy, Unknown, "CANNOT REMEMBER", 09/11/17) pravastatin (Unverified Allergy, Unknown, MUSCLE ACHES, 09/11/17) simvastatin (Unverified Allergy, Unknown, MUSCLE ACHES, 09/11/17) niacin (Unverified Adverse Reaction, Severe, Cramping, 09/11/17) infliximab (Unverified Adverse Reaction, Unknown, Nausea/Vomiting, 09/11/17) infliximab-dyyb (Unverified Adverse Reaction, Unknown, Nausea/Vomiting, 09/11/17) Uncoded Allergies: enbrel (Adverse Reaction, Unknown, Itching, 05/18/16) Past Medical History Hypertension Diabetes mellitus Coronary artery disease with stents in 2002 CABG in 1994 LA about a year ago Anxiety Peripheral neuropathy Past Surgical History Left shoulder rotator cuff repair Cataract surgery Hysterectomy Expiratory laparotomy with lysis of adhesions for bowel obstruction CABG in 1994 Reported Medications Methotrexate weekly Albuterol 2 puffs inhaled every 4 hours Plavix 75 mg by mouth daily Lovaza 2 g by mouth twice a day Isosorbide mononitrate ER 60 g by mouth daily Nitroglycerin 0.4 g sublingual as needed for chest pain Metoprolol 50 g by mouth twice a day Norvasc 2.5 mg by mouth daily Lisinopril 40 g by mouth daily Aspirin 81 mill grams by mouth daily Tramadol 50 mg by mouth 4 times a day Clonazepam 0.5 mill grams by mouth twice a day NPH 50 units subcutaneous twice a day Gabapentin 300 mill grams by mouth 3 times a day Klonopin 0.5 mill grams by mouth twice a day Folic acid 1 mill grams by mouth daily Cholecalciferol 2000 and units by mouth every other day Family History Mother had diabetes. at age 87 Father had leukemia at age 78. Social History Smoked for 35 years. Quit in 1994 No alcohol or illicit drug use Physical Exam Vital Signs Vital Signs Date Time Temp Pulse Resp B/P (MAP) Pulse Ox O2 Delivery O2 Flow Rate FiO2 09/12/17 02:15 96 Nasal Cannula 2.00 09/12/17 02:00 74 09/12/17 02:00 98 Nasal Cannula 4.00 09/12/17 02:00 98.7 74 18 162/71 (101) 98 09/12/17 00:00 97.1 70 20 144/53 (83) 96 09/11/17 20:41 Nasal Cannula 4.00 09/11/17 20:00 97.0 75 18 151/60 (90) 96 09/11/17 17:29 20 09/11/17 15:55 96.0 67 17 120/48 (72) 98 09/11/17 12:00 96.5 66 16 130/50 (76) 93 09/11/17 11:45 98.1 62 16 162/65 (97) 96 Nasal Cannula 3 09/11/17 11:30 62 16 162/67 (98) 97 Nasal Cannula 4 09/11/17 11:15 59 14 164/70 (101) 96 Nasal Cannula 4 09/11/17 11:00 63 12 161/71 (101) 96 Nasal Cannula 4 09/11/17 10:48 99.6 72 13 157/67 (97) 94 Nasal Cannula 4 09/11/17 06:00 98.6 58 20 159/64 (95) 99 Physical Exam GENERAL: Well-nourished, well-developed very pleasant overweight female who is laying in ISC bed. SKIN: Warm and dry, well perfused HEAD: Atraumatic. Normocephalic. EYES: Pupils equal and round. No scleral icterus. No injection or drainage. ENT: No nasal bleeding or discharge. Mucous membranes pink and moist. NECK: Trachea midline. No JVD. CARDIOVASCULAR: Regular rate and rhythm. No murmurs rubs or gallops. RESPIRATORY: Breathing comfortably on 1 L nasal cannula with no accessory muscle use. Clear to auscultation bilaterally. GASTROINTESTINAL: Abdomen soft, non-tender, nondistended. Well-healed midline vertical abdominal scar. MUSCULOSKELETAL: Extremities without clubbing, cyanosis. Knee immobilizer in place on the left. Wiggles toes. NEUROLOGICAL: Awake and alert. No obvious cranial nerve deficits. Motor grossly within normal limits. Normal speech. Laboratory Laboratory Tests Test 09/11/17 06:00 09/11/17 21:20 09/11/17 21:28 09/12/17 01:50 Blood Urea Nitrogen 17 Creatinine 0.83 Random Glucose 212 Calcium Level 9.2 Sodium Level 138 Potassium Level 4.2 Chloride Level 105 Carbon Dioxide Level 25.9 Anion Gap 7 Estimat Glomerular Filtration Rate 67 Urine Color YELLOW Urine Turbidity CLEAR Urine pH 6.5 Urine Specific [place] 1.015 Urine Protein 30 Urine Glucose (UA) 1000 Urine Ketones NEG Urine Occult Blood NEG Urine Nitrite NEG Urine Bilirubin NEG Urine Urobilinogen LESS THAN 2.0 Urine Leukocyte Esterase NEG Urine RBC 1 Urine WBC 1 Urine Squamous Epithelial Cells <1 Urine Amorphous Sediment RARE Urine Hyaline Casts 3 Microscopic Urinalysis Comment CATH-CULT NOT IND Total Creatine Kinase 276 Creatine Kinase MB 3.0 Creatine Kinase MB % 1.1 Troponin I LESS THAN 0.02 Result Diagram: 09/11/17 0600 Assessment and Plan Assessment and Plan NEURO: Peripheral neuropathy Anxiety Gabapentin 300 mg by mouth 3 times a day Klonopin 0.5 mg by mouth twice a day Hydrocodone as needed for pain Morphine as needed for breakthrough pain RESP: Wean nasal cannula as tolerated. Incentive spirometry every hour awake Chest x-ray clear CV: Chest pain Coronary artery disease with prior stents, prior CABG Hypertension Hyperlipidemia Currently chest pain-free Nitroglycerin as needed for chest pain Aspirin 325 mg by mouth now, was discussed with Dr. Whitman. ASA 81 daily. Labetalol as needed for systolic blood pressure greater than 150 Continue Norvasc 2.5 mg by mouth daily Continue Imdur 60 g by mouth daily Continue metoprolol 50 g by mouth twice a day Continue lisinopril 40 g by mouth daily Serial EKG and cardiac markers. Obtain 2-D echo Cardiology has been consulted Did receive 2 doses of Tranexamic acid which may increase risk of LA GI: 2000-calorie ADA diet FEN/RENAL: Monitor intake and output. Monitor creatinine. Monitor electrolytes and replace as indicated. LR 80 mL per hour ID: Rheumatoid arthritis Methotrexate on hold Folic acid 1 mg by mouth daily Monitor for signs and symptoms of infection. Received perioperative cefazolin and vanc. HEME: Monitor CBC ENDO: Diabetes mellitus Medium dose insulin sliding scale before meals/at bedtime NPH 50 twice a day PROPH: Apixaban 2.5 mg by mouth twice a day for DVT prophylaxis held per Dr. Whitman. Her tonic 40 mg by mouth daily for stress ulcer prophylaxis and history of GERD ACCESS: Peripheral IV providing adequate access at this time. RN communicated with Dr. Whitman who is ok with ASA for antiplatelet therapy. Hold off on heparin, if indicated, until 24 hours post op. Level II consult Meenakshi Hernandez MD Sep 12, 2017 03:09
[2017-09-12] MEDS ORDERED: LABETALOL HCL 100 MG/20 ML VIAL IV PUSH PRN (03:15)
[2017-09-12] MEDS ORDERED: ASPIRIN 81 MG CHEW TAB CHEW ONE (03:15)
[2017-09-12 04:20] LABS: AUTOMATED NEUTROPHIL # 8.7 TH/MM3 (1.8-7.7); BASOPHIL % 0.1 % (0.0-2.0); HEMATOCRIT 33.6 % (35.0-46.0); HEMOGLOBIN 11.2 GM/DL (11.6-15.3); LYMPH % 8.3 % (9.0-44.0); LYMPHOCYTE # 0.8 TH/MM3 (1.0-4.8); MEAN CELL VOLUME 90.3 FL (80.0-100.0); MEAN CORPUSCULAR HGB CONC 33.2 % (32.0-36.0); MEAN PLATELET VOLUME 9.1 FL (7.0-11.0); MONO % 6.6 % (0.0-8.0); MONOCYTE # 0.7 TH/MM3 (0-0.9); PLATELET COUNT 146 TH/MM3 (150-450); RED BLOOD COUNT 3.72 MIL/MM3 (4.00-5.30); RED CELL DISTRIBUTION WIDTH 16.6 % (11.6-17.2); WHITE BLOOD COUNT 10.2 TH/MM3 (4.0-11.0)
[2017-09-12 04:49] LABS: BICARBONATE 27.1 MEQ/L (21.0-32.0); CREATININE 1.12 MG/DL (0.50-1.00); MAGNESIUM 1.6 MG/DL (1.5-2.5)
[2017-09-12 04:54] LABS: TROPONIN I 0.17 NG/ML (0.02-0.05)
[2017-09-12] MEDS ORDERED: NITROGLYCERIN 0.4 MG SL 25 TABS/BTL SL PRN (05:00)
[2017-09-12] MEDS: ACETAMINOPHEN/HYDROcodone 325 MG/7.5 MG TAB PO PRN ×3 (05:11→18:43)
[2017-09-12] MEDS: ISOSORBIDE MONONITRATE 60 MG TAB PO SCH (08:07)
[2017-09-12] MEDS: LISINOPRIL 20 MG TAB PO SCH (08:08)
[2017-09-12] MEDS: METOPROLOL TARTRATE 50 MG TAB PO SCH ×2 (08:08→20:46)
[2017-09-12] MEDS: INSULIN ASPART SUPPLEMENTAL SCALE SQ SCH ×4 (08:08→21:43)
[2017-09-12] MEDS: amLODIPine BESYLATE 5 MG TAB PO SCH (08:08)
[2017-09-12] MEDS: FOLIC ACID 1 MG TAB PO SCH (08:08)
[2017-09-12] MEDS: GABAPENTIN 300 MG CAP PO SCH ×3 (08:08→18:43)
[2017-09-12] MEDS: clonazePAM 0.5 MG TAB PO SCH ×2 (08:08→20:46)
--- NOTE | 2017-09-12 08:08 | PD.ORT.PN ---
Subjective Subjective Remarks Pt complaining of leg pain today but no chest pain at present. Objective Vitals Vital Signs Date Time Temp Pulse Resp B/P (MAP) Pulse Ox O2 Delivery O2 Flow Rate FiO2 09/12/17 06:00 59 09/12/17 04:00 98.6 65 13 145/65 (91) 96 09/12/17 04:00 65 09/12/17 02:15 96 Nasal Cannula 2.00 09/12/17 02:00 74 09/12/17 02:00 98 Nasal Cannula 4.00 09/12/17 02:00 98.7 74 18 162/71 (101) 98 09/12/17 00:00 97.1 70 20 144/53 (83) 96 09/11/17 20:41 Nasal Cannula 4.00 09/11/17 20:00 97.0 75 18 151/60 (90) 96 09/11/17 17:29 20 09/11/17 15:55 96.0 67 17 120/48 (72) 98 09/11/17 12:00 96.5 66 16 130/50 (76) 93 09/11/17 11:45 98.1 62 16 162/65 (97) 96 Nasal Cannula 3 09/11/17 11:30 62 16 162/67 (98) 97 Nasal Cannula 4 09/11/17 11:15 59 14 164/70 (101) 96 Nasal Cannula 4 09/11/17 11:00 63 12 161/71 (101) 96 Nasal Cannula 4 09/11/17 10:48 99.6 72 13 157/67 (97) 94 Nasal Cannula 4 I/O 09/11/17 09/11/17 09/11/17 09/12/17 09/12/17 09/12/17 07:00 15:00 23:00 07:00 15:00 23:00 Intake Total 1280 ml 1167.73 ml Output Total 3050 ml 1800 ml 1075 ml Balance -1770 ml -1800 ml 92.73 ml Intake Oral 480 ml 300 ml IV Total 800 ml 867.73 ml Output Urine Total 1800 ml 1075 ml Estimated Blood Loss 50 ml Other 3000 ml # Voids 0 # Bowel Movements 0 0 Result Diagram: 09/12/176 09/12/17 0346 Objective Remarks NV intact to toes. Negative Michelle sign. In bed at present. Assessment & Plan Ortho Post Op Day #: 1 Problem List: Assessment and Plan Cont PT today, wound care. To floor when medically stable. Tim Whitman MD Sep 12, 2017 08:08
[2017-09-12] MEDS: INSULIN HUMAN NPH 1,000 UNITS/10 ML VIAL SQ SCH ×2 (08:09→21:43)
[2017-09-12] MEDS: LACTATED RINGER'S 1000 ML INJ 1,000 ML IV SCH ×2 (08:10→22:15)
[2017-09-12] MEDS ORDERED: INSULIN DETEMIR 100 UNITS/ML VIAL SQ SCH (09:00)
--- NOTE | 2017-09-12 09:25 | PD.CONS ---
HPI Consult Requested By Primary Care Physician Jesus Hoskins D.O. History of Present Illness 72 yo female with past medical history of rheumatoid arthritis, coronary artery disease with prior myocardial infarction on 2012, prior CABG 1994 and stent 2002 , hyperlipidemia, hypertension, diabetes, anxiety, GERD. She underwent left total knee arthroplasty 09/11/17. Consulted because of episode of chest pain. She states she was sitting in bed when she developed chest pressure in her mid chest , nonradiating. She states it lasted a few minutes went away then came back for couple of minutes and then resolved. It resolved spontaneously without therapy and she is now chest pain free. She had no associated shortness of breath, nausea, vomiting, diaphoresis. She states she had an PR a year ago but this did not feel like her prior myocardial infarction. She states it feels similar to prior symptoms she had when she had reflux although in on this occasion she did not notice any regurgitation. She has a negative nuclear stress/low risk preoperatively 08/24/17. Review of Systems Consitutional: DENIES: Fatigue, Fever, Chills, Weight gain, Weight loss Eyes: DENIES: Amaurosis Fugax, Change in vision HEENT: DENIES: Lightheadedness, Change in hearing Respiratory: COMPLAINS OF: See HPI, DENIES: Cough, Snoring, Shortness of breath , Wheezing, Sputum production Cardiovascular: COMPLAINS OF: See HPI, Chest pain, DENIES: Palpitations, Syncope, Tachycardia Gastrointestinal: DENIES: Nausea, Vomiting, Change in bowel habits, Reflux, Bloody stools, Melena Genitourinary: DENIES: Urinary incontinence, Difficulty voiding Integumentary: DENIES: Rash Neurologic: DENIES: Tingling or numbness, Memory problems, Poor Balance, Stroke symptoms Musculoskeletal: DENIES: Joint pain, Muscle pain, Limited range of motion, Back pain Psychiatric: DENIES: Anxiety, Depression, Sleep disturbances Hematologic: DENIES: Bruising tendencies, Bleeding tendencies Endocrine: DENIES: Weight gain, Weight loss, Thyroid disease Past Family Social History Allergies: Coded Allergies: Sulfa (Sulfonamide Antibiotics) (Unverified Allergy, Severe, Rash, 09/11/17) azithromycin (Unverified Allergy, Severe, Rash, 09/11/17) budesonide (Verified Allergy, Severe, NAUSEA, PANIC ATTACKS, 09/11/17) IN NEBULIZER TREATMENTS ciprofloxacin (Unverified Allergy, Severe, "CAN'T REMEMBER", 09/11/17) PATIENT CANNOT RECALL TYPE OF REACTION erythromycin base (Unverified Allergy, Severe, Rash, 09/11/17) leflunomide (Unverified Allergy, Severe, Rash, 09/11/17) ITCHING; DEVELOPED ECZEMA montelukast (Verified Allergy, Severe, NAUSEA, 09/11/17) amlodipine (Unverified Allergy, Unknown, MUSCLE ACHES, 05/24/17) atorvastatin (Unverified Allergy, Unknown, MUSCLE ACHES, 09/11/17) choline fenofibrate (Unverified Allergy, Unknown, "CANNOT REMEMBER", ) cyclobenzaprine (Unverified Allergy, Unknown, "CANNOT REMEMBER", 09/11/17) pravastatin (Unverified Allergy, Unknown, MUSCLE ACHES, 09/11/17) simvastatin (Unverified Allergy, Unknown, MUSCLE ACHES, 09/11/17) niacin (Unverified Adverse Reaction, Severe, Cramping, 09/11/17) infliximab (Unverified Adverse Reaction, Unknown, Nausea/Vomiting, 09/11/17) infliximab-dyyb (Unverified Adverse Reaction, Unknown, Nausea/Vomiting, 09/11/17) Uncoded Allergies: enbrel (Adverse Reaction, Unknown, Itching, 05/18/16) Past Medical History Hypertension Diabetes Coronary artery disease with stents in 2002 CABG in 1989 PR about a year ago Past Surgical History Left shoulder rotator cuff repair Cataract surgery Hysterectomy Expiratory laparotomy with lysis of adhesions for bowel obstruction CABG in 1994 Reported Medications Reported Meds & Active Scripts Active Reported Rasuvo (Methotrexate (Antirheumatic)) 7.5 Mg/0.15 Ml Inj 17.5 WEEKLY Isosorbide Mononitrate ER (Isosorbide Mononitrate) 30 Mg Patricia 60 Mg PO DAILY Novolin N Inj (Insulin Human NPH) 100 Unit/Ml Inj 50 Units SQ BID Ultram (Tramadol HCl) 50 Mg Tab 50 Mg PO QID PRN Lovaza (Tbjbi-3-Jqrp Ethyl Esters) 1 Gm Cap 2 Gm PO BID Nitrostat SL (Nitroglycerin) 0.4 Mg Subl 0.4 Mg SL DIRECTED PRN 1 tablet under the tongue as needed for chest pain. Repeat every 5 minutes for a total of 3 DOSES or call 911 if NO relief. Metoprolol Tartrate 50 Mg Tab 50 Mg PO BID Lisinopril 40 Mg Tab 40 Mg PO DAILY Gabapentin 300 Mg Cap 300 Mg PO TID Folic Acid 1 Mg Tablet 1 Mg PO DAILY Plavix (Clopidogrel Bisulfate) 75 Mg Tab 75 Mg PO DAILY Klonopin (Clonazepam) 0.5 Mg Tab 0.5 Mg PO BID Vitamin D-1000 (Cholecalciferol) 1,000 Unit Tab 2,000 Units PO EVERY OTHER DAY Aspirin 81 Mg Chew 81 Mg CHEW DAILY Norvasc (Amlodipine Besylate) 2.5 Mg Tab 2.5 Mg PO DAILY Ventolin Hfa 18 GM Inh (Albuterol Sulfate) 90 Mcg/Act Aer 2 Puff INH Q4-6H PRN Active Ordered Medications Current Medications Medications (Trade) Dose Ordered Sig/Lindsay Route Start Time Stop Time Status Last Admin Lactated Ringer's 1,000 ml @ 30 mls/hr Q24H PRN IV 09/11/17 06:00 09/14/17 05:59 09/11/17 06:00 Sodium Chloride 500 ml @ 30 mls/hr [id number] PRN IV 09/11/17 06:00 09/14/17 05:59 (Lopressor) 25 mg WIRER PRN PO 09/11/17 06:00 09/14/17 05:59 (Betadine 5% Antisepsis Kit) 1 applic WIRER PRN EACH NARE 09/11/17 06:00 09/14/17 05:59 09/11/17 06:00 (Chlorhexidine 2% Cloth) 3 pack WIRER PRN TOPICAL 09/11/17 06:00 09/14/17 05:59 09/11/17 05:45 (Hibiclens 4% Top Soln) 1 applic ONCE TOPICAL 09/11/17 06:00 09/14/17 05:59 09/11/17 06:00 Cefazolin Sodium/ Dextrose 50 ml @ 100 mls/hr WIRER IV 09/11/17 06:00 09/14/17 05:59 09/11/17 08:43 Vancomycin HCl 1000 mg/Sodium Chloride 250 ml @ 250 mls/hr WIRER IV 09/11/17 06:00 09/14/17 05:59 09/11/17 07:35 (Proair Hfa Inh) 2 puff BID PRN INH 09/11/17 09:00 (Norvasc) 2.5 mg DAILY PO 09/11/17 12:00 09/12/17 08:08 (Vitamin D3) 2,000 units EVERY OTHER DAY PO 09/11/17 09:00 (KlonoPIN) 0.5 mg BID PO 09/11/17 09:00 09/12/17 08:08 (Folate) 1 mg DAILY PO 09/11/17 09:00 09/12/17 08:08 (Neurontin) 300 mg TID PO 09/11/17 09:00 09/12/17 08:08 (NovoLIN N INJ) 50 units BID SQ 09/11/17 10:15 09/12/17 08:09 (Imdur) 60 mg DAILY PO 09/11/17 12:00 09/12/17 08:07 (Lopressor) 50 mg BID PO 09/11/17 12:00 09/11/17 20:50 (Nitrostat Sl) 0.4 mg TID PRN SL 09/11/17 09:00 (Prinivil) 40 mg DAILY PO 09/11/17 12:00 09/12/17 08:08 Lactated Ringer's 1,000 ml @ 80 mls/hr [id number] IV 09/11/17 08:45 09/11/17 11:11 ([place] 7.5-325 Mg) 1 tab Q4H PRN PO 09/11/17 08:45 09/11/17 16:29 ([place] 7.5-325 Mg) 2 tab Q4H PRN PO 09/11/17 08:45 09/12/17 05:11 (Tylenol) 650 mg Q6H PRN PO 09/11/17 08:45 (Theragran M Tab) 1 tab BID PO 09/12/17 21:00 11/11/17 20:59 (Zofran Inj) 4 mg Q6H PRN IVP 09/11/17 08:45 (Colace) 100 mg BID PO 09/12/17 21:00 (Restoril) 15 mg HS PRN PO 09/11/17 21:00 (Bacitracin Oint Packet) 0.9 gm UNSCH X1 PRN TOP 09/13/17 10:15 09/15/17 10:14 (Narcan Inj) 0.4 mg UNSCH PRN IV PUSH 09/11/17 08:45 (Benadryl Inj) 25 mg Q6H PRN IV PUSH 09/11/17 09:00 (Eliquis) 2.5 mg BID PO 09/12/17 10:00 Future Hold (Morphine Inj) 4 mg Q3H PRN IV PUSH 09/11/17 08:45 09/12/17 00:08 Miscellaneous Information ALL NURSING DEPARTME... UNSCH PRN .XX 09/11/17 10:46 09/12/17 10:45 (Pill Splitter) 1 ea UNSCH PRN OTHER 09/11/17 12:00 (NovoLOG SUPPLEMENTAL SCALE) 1 ACHS SLIDING SCALE SQ 09/11/17 17:00 09/12/17 08:08 (Duoneb Neb) 1 ampule Q4HR NEB PRN NEB 09/11/17 17:00 (Tums Chew) 500 mg Q6H PRN PO 09/11/17 21:00 (Aspirin Chew) 81 mg DAILY CHEW 09/13/17 09:00 (Trandate Inj) 10 mg Q6H PRN IV PUSH 09/12/17 03:15 (Nitrostat Sl) 0.4 mg Q5M PRN SL 09/12/17 05:00 Physical Exam Vital Signs Vital Signs Date Time Temp Pulse Resp B/P (MAP) Pulse Ox O2 Delivery O2 Flow Rate FiO2 09/12/17 08:00 58 09/12/17 06:00 59 09/12/17 04:00 98.6 65 13 145/65 (91) 96 09/12/17 04:00 65 09/12/17 02:15 96 Nasal Cannula 2.00 09/12/17 02:00 74 09/12/17 02:00 98 Nasal Cannula 4.00 09/12/17 02:00 98.7 74 18 162/71 (101) 98 09/12/17 00:00 97.1 70 20 144/53 (83) 96 09/11/17 20:41 Nasal Cannula 4.00 09/11/17 20:00 97.0 75 18 151/60 (90) 96 09/11/17 17:29 20 09/11/17 15:55 96.0 67 17 120/48 (72) 98 09/11/17 12:00 96.5 66 16 130/50 (76) 93 09/11/17 11:45 98.1 62 16 162/65 (97) 96 Nasal Cannula 3 09/11/17 11:30 62 16 162/67 (98) 97 Nasal Cannula 4 09/11/17 11:15 59 14 164/70 (101) 96 Nasal Cannula 4 09/11/17 11:00 63 12 161/71 (101) 96 Nasal Cannula 4 09/11/17 10:48 99.6 72 13 157/67 (97) 94 Nasal Cannula 4 Physical Exam GENERAL: Well-nourished, well-developed patient. SKIN: Warm and dry. HEAD: Normocephalic. EYES: No scleral icterus. No injection or drainage. NECK: Supple, trachea midline. No JVD or lymphadenopathy. CARDIOVASCULAR: Regular rate and rhythm without murmurs, gallops, or rubs. RESPIRATORY: Breath sounds equal bilaterally. No accessory muscle use. GASTROINTESTINAL: Abdomen soft, non-tender, nondistended. EXTREMITIES: No cyanosis, or edema. NEUROLOGICAL: Awake, alert, and oriented x 3. Non-focal. Laboratory Laboratory Tests Test 09/11/17 21:20 09/11/17 21:28 09/12/17 01:50 09/12/17 03:46 Urine Color YELLOW Urine Turbidity CLEAR Urine pH 6.5 Urine Specific [place] 1.015 Urine Protein 30 Urine Glucose (UA) 1000 Urine Ketones NEG Urine Occult Blood NEG Urine Nitrite NEG Urine Bilirubin NEG Urine Urobilinogen LESS THAN 2.0 Urine Leukocyte Esterase NEG Urine RBC 1 Urine WBC 1 Urine Squamous Epithelial Cells <1 Urine Amorphous Sediment RARE Urine Hyaline Casts 3 Microscopic Urinalysis Comment CATH-CULT NOT IND Total Creatine Kinase 276 351 Creatine Kinase MB 3.0 5.6 Creatine Kinase MB % 1.1 1.6 Troponin I LESS THAN 0.02 0.17 Nasal Screen MRSA (PCR) MRSA NOT DETECTED White Blood Count 10.2 Red Blood Count 3.72 Hemoglobin 11.2 Hematocrit 33.6 Mean Corpuscular Volume 90.3 Mean Corpuscular Hemoglobin 30.0 Mean Corpuscular Hemoglobin Concent 33.2 Red Cell Distribution Width 16.6 Platelet Count 146 Mean Platelet Volume 9.1 Neutrophils (%) (Auto) 85.0 Lymphocytes (%) (Auto) 8.3 Monocytes (%) (Auto) 6.6 Eosinophils (%) (Auto) 0.0 Basophils (%) (Auto) 0.1 Neutrophils # (Auto) 8.7 Lymphocytes # (Auto) 0.8 Monocytes # (Auto) 0.7 Eosinophils # (Auto) 0.0 Basophils # (Auto) 0.0 CBC Comment DIFF FINAL Differential Comment Blood Urea Nitrogen 22 Creatinine 1.12 Random Glucose 295 Calcium Level 9.0 Magnesium Level 1.6 Sodium Level 136 Potassium Level 4.6 Chloride Level 102 Carbon Dioxide Level 27.1 Anion Gap 7 Estimat Glomerular Filtration Rate 48 Result Diagram: 09/12/17 0346 09/12/17 0346 Imaging Last Impressions Knee X-Ray 09/11/17 0802 Signed Impressions: Service Date/Time: Monday, September 11, 2017 10:59 - CONCLUSION: Intact total knee arthroplasty for technique. HortonLuis Enrique Boyd MD Chest X-Ray 09/11/17 0000 Signed Impressions: Service Date/Time: Monday, September 11, 2017 21:03 - CONCLUSION: No acute disease. Lino Nicholson MD Assessment and Plan Problem List: (1) Chest pain ICD Codes: R07.9 - Chest pain, unspecified Status: Acute Plan: Elevated troponin and atypical chest pain in the setting of recent Ortho Surgery. Currently chest pain free with no CV complaints MARIE Negative nuclear stress test/Low risk on 08/24/17. Recommendations: 1. Cont Telemetry 2. Aspirin 81mg PO Daily 3. Plavix 75mg PO Daily 3. Imdur 30mg PO Daily 4. Lopressor 12.5 mg PO BID 5. Allergic to statin 6. Cycle Cardiac markers x3 Q6H 7. Hold ACEi given MARIE Follow up with Dr. Carreno upon discharge (2) CAD (coronary artery disease) ICD Codes: I25.10 - Atherosclerotic heart disease of [place] coronary artery without angina pectoris Status: Chronic (3) Hyperlipidemia ICD Codes: E78.5 - Hyperlipidemia, unspecified Status: Chronic (4) HTN (hypertension) ICD Codes: I10 - Essential (primary) hypertension Status: Chronic (5) DM (diabetes mellitus) ICD Codes: E11.9 - Type 2 diabetes mellitus without complications Status: Chronic (6) Osteoarthritis of left knee ICD Codes: M17.12 - Unilateral primary osteoarthritis, left knee Status: Chronic (7) Anxiety ICD Codes: F41.9 - Anxiety disorder, unspecified (8) Status post total left knee replacement ICD Codes: Z96.652 - Presence of left artificial knee joint Problem Qualifiers (1) DM (diabetes mellitus): (2) Osteoarthritis of left knee: Qualified Codes: M17.12 - Unilateral primary osteoarthritis, left knee Jeffers-Navjot Means MD Sep 12, 2017 09:25
[2017-09-12] MEDS ORDERED: APIXABAN 2.5 MG TABLET PO SCH (10:00)
--- NOTE | 2017-09-12 10:12 | EKG ---
Date Performed: 09/11/2017 Time Performed: 20:47:29 PTAGE: 72 years EKG: Sinus rhythm WITH OCCASIONAL SUPRAVENTRICULAR PREMATURE COMPLEXES ST DEVIATION AND MODERATE T-WAVE ABNORMALITY, C ONSIDER ANTEROLATERAL ISCHEMIA ABNORMAL ECG PREVIOUS TRACING : 05/18/2016 21.14 DOCTOR: Shamar Llanos Interpretating Date/Time 09/12/2017 10:11:55
[2017-09-12] MEDS: PANTOPRAZOLE SOD 40 MG DELAYED RELEASE TAB PO SCH (10:28)
[2017-09-12] MEDS: INSULIN ASPART 1,000 UNITS/10 ML VIAL SQ SCH (17:00)
[2017-09-12] MEDS: DOCUSATE SODIUM 100 MG CAP PO SCH (20:46)
[2017-09-12] MEDS: MULTIVITAMINS/MINERALS THERAPEUTIC TAB PO SCH (20:46)
[2017-09-13] VITALS (11 sets, daily range): BP systolic 137–183; BP diastolic 50–74; PULSE 51–70; RESP 18; TEMP 96.2–98.8; O2SAT 55–96
[2017-09-13] MEDS: METOPROLOL TARTRATE 50 MG TAB PO SCH ×2 (03:54→21:34)
[2017-09-13] MEDS: ACETAMINOPHEN/HYDROcodone 325 MG/7.5 MG TAB PO PRN ×4 (03:54→18:00)
[2017-09-13 04:53] LABS: HEMATOCRIT 33.5 % (35.0-46.0); HEMOGLOBIN 11.3 GM/DL (11.6-15.3)
[2017-09-13] MEDS ORDERED: MAGNESIUM HYDROXIDE SUSP 30 ML CUP PO PRN (05:45)
[2017-09-13] MEDS: INSULIN ASPART SUPPLEMENTAL SCALE SQ SCH ×4 (08:00→21:15)
[2017-09-13] MEDS: INSULIN ASPART 1,000 UNITS/10 ML VIAL SQ SCH ×3 (08:00→18:01)
[2017-09-13] MEDS: FOLIC ACID 1 MG TAB PO SCH (09:00)
[2017-09-13] MEDS ORDERED: DOCUSATE SODIUM 50 MG/SENNA 8.6 MG TAB PO SCH (09:00)
[2017-09-13] MEDS: INSULIN HUMAN NPH 1,000 UNITS/10 ML VIAL SQ SCH ×2 (09:00→21:15)
[2017-09-13] MEDS: MULTIVITAMINS/MINERALS THERAPEUTIC TAB PO SCH ×2 (09:32→21:34)
[2017-09-13] MEDS: GABAPENTIN 300 MG CAP PO SCH ×3 (09:32→18:00)
[2017-09-13] MEDS: ISOSORBIDE MONONITRATE 60 MG TAB PO SCH (09:32)
[2017-09-13] MEDS: PANTOPRAZOLE SOD 40 MG DELAYED RELEASE TAB PO SCH (09:32)
[2017-09-13] MEDS: DOCUSATE SODIUM 100 MG CAP PO SCH ×2 (09:32→21:33)
[2017-09-13] MEDS: CHOLECALCIFEROL (VIT D3) 1000 UNIT TAB PO SCH (09:32)
[2017-09-13] MEDS: LISINOPRIL 20 MG TAB PO SCH (09:32)
[2017-09-13] MEDS: ASPIRIN 81 MG CHEW TAB CHEW SCH (09:33)
[2017-09-13] MEDS: clonazePAM 0.5 MG TAB PO SCH ×2 (09:33→21:34)
[2017-09-13] MEDS: amLODIPine BESYLATE 5 MG TAB PO SCH (09:33)
[2017-09-13] MEDS ORDERED: BACITRACIN OINT 0.9 GM PKT TOP PRN (10:15)
[2017-09-13] MEDS: LACTATED RINGER'S 1000 ML INJ 1,000 ML IV SCH ×2 (10:45→21:42)
--- NOTE | 2017-09-13 12:18 | PD.CARD.PN ---
Subjective Subjective Remarks no overnight events no cardiovascular complaints Objective Medications Current Medications Medications (Trade) Dose Ordered Sig/Lindsay Route Start Time Stop Time Status Last Admin Lactated Ringer's 1,000 ml @ 30 mls/hr Q24H PRN IV 09/11/17 06:00 09/14/17 05:59 09/11/17 06:00 Sodium Chloride 500 ml @ 30 mls/hr [id number] PRN IV 09/11/17 06:00 09/14/17 05:59 (Lopressor) 25 mg COST ESTIMATING MANAGER PRN PO 09/11/17 06:00 09/14/17 05:59 (Betadine 5% Antisepsis Kit) 1 applic COST ESTIMATING MANAGER PRN EACH NARE 09/11/17 06:00 09/14/17 05:59 09/11/17 06:00 (Chlorhexidine 2% Cloth) 3 pack COST ESTIMATING MANAGER PRN TOPICAL 09/11/17 06:00 09/14/17 05:59 09/11/17 05:45 (Hibiclens 4% Top Soln) 1 applic ONCE TOPICAL 09/11/17 06:00 09/14/17 05:59 09/11/17 06:00 Cefazolin Sodium/ Dextrose 50 ml @ 100 mls/hr COST ESTIMATING MANAGER IV 09/11/17 06:00 09/14/17 05:59 09/11/17 08:43 Vancomycin HCl 1000 mg/Sodium Chloride 250 ml @ 250 mls/hr COST ESTIMATING MANAGER IV 09/11/17 06:00 09/14/17 05:59 09/11/17 07:35 (Proair Hfa Inh) 2 puff BID PRN INH 09/11/17 09:00 (Norvasc) 2.5 mg DAILY PO 09/11/17 12:00 09/13/17 09:33 (Vitamin D3) 2,000 units EVERY OTHER DAY PO 09/11/17 09:00 09/13/17 09:32 (KlonoPIN) 0.5 mg BID PO 09/11/17 09:00 09/13/17 09:33 (Folate) 1 mg DAILY PO 09/11/17 09:00 09/13/17 09:00 (Neurontin) 300 mg TID PO 09/11/17 09:00 09/13/17 09:32 (Imdur) 60 mg DAILY PO 09/11/17 12:00 1/4/18 09:32 (Lopressor) 50 mg BID PO 09/11/17 12:00 09/13/17 03:54 (Nitrostat Sl) 0.4 mg TID PRN SL 09/11/17 09:00 (Prinivil) 40 mg DAILY PO 09/11/17 12:00 09/13/17 09:32 Lactated Ringer's 1,000 ml @ 80 mls/hr [id number] IV 09/11/17 08:45 09/11/17 11:11 ([place] 7.5-325 Mg) 1 tab Q4H PRN PO 09/11/17 08:45 09/11/17 16:29 ([place] 7.5-325 Mg) 2 tab Q4H PRN PO 09/11/17 08:45 09/13/17 09:32 (Tylenol) 650 mg Q6H PRN PO 09/11/17 08:45 (Theragran M Tab) 1 tab BID PO 09/12/17 21:00 11/11/17 20:59 09/13/17 09:32 (Zofran Inj) 4 mg Q6H PRN IVP 09/11/17 08:45 (Colace) 100 mg BID PO 09/12/17 21:00 09/13/17 09:32 (Restoril) 15 mg HS PRN PO 09/11/17 21:00 (Bacitracin Oint Packet) 0.9 gm UNSCH X1 PRN TOP 09/13/17 10:15 09/15/17 10:14 (Narcan Inj) 0.4 mg UNSCH PRN IV PUSH 09/11/17 08:45 (Benadryl Inj) 25 mg Q6H PRN IV PUSH 09/11/17 09:00 (Eliquis) 2.5 mg BID PO 09/12/17 10:00 Future Hold (Morphine Inj) 4 mg Q3H PRN IV PUSH 09/11/17 08:45 09/12/17 00:08 (Pill Splitter) 1 ea UNSCH PRN OTHER 09/11/17 12:00 (NovoLOG SUPPLEMENTAL SCALE) 1 ACHS SLIDING SCALE SQ 09/11/17 17:00 09/12/17 21:43 (Duoneb Neb) 1 ampule Q4HR NEB PRN NEB 09/11/17 17:00 (Tums Chew) 500 mg Q6H PRN PO 09/11/17 21:00 (Aspirin Chew) 81 mg DAILY CHEW 09/13/17 09:00 09/13/17 09:33 (Trandate Inj) 10 mg Q6H PRN IV PUSH 09/12/17 03:15 (Nitrostat Sl) 0.4 mg Q5M PRN SL 09/12/17 05:00 (Protonix) 40 mg DAILY PO 09/12/17 10:00 09/13/17 09:32 (NovoLIN N INJ) 60 units BID SQ 09/12/17 21:00 09/12/17 21:43 (NovoLOG INJ) 7 units TIDAC SQ 09/12/17 17:00 09/12/17 17:00 (Ernestina-Colace) 1 tab BID PO 09/13/17 09:00 09/13/17 09:32 (Milk Of Magnesia Liq) 30 ml Q12H PRN PO 09/13/17 05:45 Vital Signs / I&O Vital Signs Date Time Temp Pulse Resp B/P (MAP) Pulse Ox O2 Delivery O2 Flow Rate FiO2 09/13/17 10:32 18 09/13/17 08:00 96.5 51 18 142/59 (86) 55 09/13/17 05:09 152/70 (97) 09/13/17 04:00 60 09/13/17 03:45 98.8 60 18 183/74 (110) 95 09/12/17 23:32 63 09/12/17 23:14 98.7 61 17 168/72 (104) 94 09/12/17 21:45 65 09/12/17 20:00 94 Nasal Cannula 2.00 09/12/17 19:15 97.9 83 17 148/65 (92) 94 09/12/17 17:15 97.1 59 18 172/73 (106) 93 09/12/17 16:00 54 09/12/17 16:00 98.5 60 13 155/91 (112) 96 09/12/17 14:00 52 I/O 09/12/17 09/12/17 09/12/17 09/13/17 09/13/17 09/13/17 07:00 15:00 23:00 07:00 15:00 23:00 Intake Total 1167.73 ml 360 ml 360 ml Output Total 1075 ml 850 ml 1000 ml Balance 92.73 ml -490 ml -640 ml Intake Oral 300 ml 360 ml 360 ml IV Total 867.73 ml Output Urine Total 1075 ml 850 ml 1000 ml # Bowel Movements 0 0 0 Physical Exam GENERAL: Well-nourished, well-developed patient. SKIN: Warm and dry. HEAD: Normocephalic. EYES: No scleral icterus. No injection or drainage. NECK: Supple, trachea midline. No JVD or lymphadenopathy. CARDIOVASCULAR: Regular rate and rhythm without murmurs, gallops, or rubs. RESPIRATORY: Breath sounds equal bilaterally. No accessory muscle use. GASTROINTESTINAL: Abdomen soft, non-tender, nondistended. EXTREMITIES: No cyanosis, or edema. NEUROLOGICAL: Awake, alert, and oriented x 3. Non-focal. Laboratory Laboratory Tests Test 09/13/17 04:37 Hemoglobin 11.3 GM/DL Hematocrit 33.5 % Imaging Last Impressions Knee X-Ray 09/11/17 0802 Signed Impressions: Service Date/Time: Monday, September 11, 2017 10:59 - CONCLUSION: Intact total knee arthroplasty for technique. Horton. Guy Boyd MD Chest X-Ray 09/11/17 0000 Signed Impressions: Service Date/Time: Monday, September 11, 2017 21:03 - CONCLUSION: No acute disease. Lino Nicholson MD Assessment and Plan Problem List: (1) Chest pain ICD Codes: R07.9 - Chest pain, unspecified Status: Acute Plan: Elevated troponin and atypical chest pain in the setting of recent Ortho Surgery. Chest pain free. No CV complaints No overnight events MARIE No need for further cardiac work up at this time Encourage incentive spirometry and out of bed Recommendations: 1. Cont Telemetry 2. Aspirin 81mg PO Daily 3. Plavix 75mg PO Daily 3. Imdur 30mg PO Daily 4. Lopressor 12.5 mg PO BID 5. Allergic to statin 6. Hold ACEi given MARIE Follow up with Dr. Carreno upon discharge (2) CAD (coronary artery disease) ICD Codes: I25.10 - Atherosclerotic heart disease of [place] coronary artery without angina pectoris Status: Chronic (3) Hyperlipidemia ICD Codes: E78.5 - Hyperlipidemia, unspecified Status: Chronic (4) HTN (hypertension) ICD Codes: I10 - Essential (primary) hypertension Status: Chronic (5) DM (diabetes mellitus) ICD Codes: E11.9 - Type 2 diabetes mellitus without complications Status: Chronic (6) Osteoarthritis of left knee ICD Codes: M17.12 - Unilateral primary osteoarthritis, left knee Status: Chronic (7) Anxiety ICD Codes: F41.9 - Anxiety disorder, unspecified (8) Status post total left knee replacement ICD Codes: Z96.652 - Presence of left artificial knee joint Problem Qualifiers (1) DM (diabetes mellitus): (2) Osteoarthritis of left knee: Qualified Codes: M17.12 - Unilateral primary osteoarthritis, left knee Navjot Shah MD Sep 13, 2017 12:18
--- NOTE | 2017-09-13 13:28 | PD.ORT.PN ---
Subjective Subjective Remarks Pt more comfortable today. Objective Vitals Vital Signs Date Time Temp Pulse Resp B/P (MAP) Pulse Ox O2 Delivery O2 Flow Rate FiO2 09/13/17 10:32 18 09/13/17 08:00 96.5 51 18 142/59 (86) 55 09/13/17 05:09 152/70 (97) 09/13/17 04:00 60 09/13/17 03:45 98.8 60 18 183/74 (110) 95 09/12/17 23:32 63 09/12/17 23:14 98.7 61 17 168/72 (104) 94 09/12/17 21:45 65 09/12/17 20:00 94 Nasal Cannula 2.00 09/12/17 19:15 97.9 83 17 148/65 (92) 94 09/12/17 17:15 97.1 59 18 172/73 (106) 93 09/12/17 16:00 54 09/12/17 16:00 98.5 60 13 155/91 (112) 96 09/12/17 14:00 52 I/O 09/12/17 09/12/17 09/12/17 09/13/17 09/13/17 09/13/17 07:00 15:00 23:00 07:00 15:00 23:00 Intake Total 1167.73 ml 360 ml 360 ml Output Total 1075 ml 850 ml 1000 ml Balance 92.73 ml -490 ml -640 ml Intake Oral 300 ml 360 ml 360 ml IV Total 867.73 ml Output Urine Total 1075 ml 850 ml 1000 ml # Bowel Movements 0 0 0 Result Diagram: 09/13/17 0437 09/12/17 0346 Objective Remarks NV intact to toes. Negative Michelle sign. Sitting up at present. Assessment & Plan Ortho Post Op Day #: 2 Problem List: Assessment and Plan Cont PT today, wound care. Home tomorrow. Tim Whitman MD Sep 13, 2017 13:28
--- NOTE | 2017-09-13 14:36 | ECHRPT ---
Indication: Shortness of breath CONCLUSIONS The left ventricular systolic function is normal with an estimated ejection fraction in the range of 55-60%. Wall thickness is measured at the upper limits of normal. Normal left ventricular size. Trace mitral valve regurgitation. There is moderate tricuspid regurgitation. The estimated pulmonary arterial pressure is 43.9 mmHg. BP: 145 / 65 HR: 65 Rhythm: Sinus MEASUREMENTS (Male / Female) Normal Values Technical Quality:Poor 2D ECHO LV Diastolic Diameter PLAX 3.8 cm 4.2 - 5.9 / 3.9 - 5.3 cm LV Systolic Diameter PLAX 2.9 cm IVS Diastolic Thickness 0.9 cm 0.6 - 1.0 / 0.6 - 0.9 cm LVPW Diastolic Thickness 1.0 cm 0.6 - 1.0 / 0.6 - 0.9 cm LV Relative Wall Thickness 0.5 LVOT Diameter 1.8 cm M-MODE Aortic Root Diameter MM 2.7 cm LA Systolic Diameter MM 4.2 cm LA Ao Ratio MM 1.6 AV Cusp Separation MM 1.9 cm DOPPLER AV Peak Velocity 152.0 cm/s AV Peak Gradient 9.2 mmHg LVOT Peak Velocity 84.9 cm/s LVOT Peak Gradient 2.9 mmHg AV Area Cont Eq pk 1.4 cm MR Peak Velocity 425.5 cm/s MR Peak Gradient 72.4 mmHg Mitral E Point Velocity 106.0 cm/s Mitral A Point Velocity 40.0 cm/s Mitral E to A Ratio 2.6 LV E' Lateral Velocity 9.8 cm/s Mitral E to LV E' Lateral Ratio 10.8 LV E' Septal Velocity 6.2 cm/s Mitral E to LV E' Septal Ratio 17.0 TR Peak Velocity 291.0 cm/s TR Peak Gradient 33.9 mmHg Right Atrial Pressure 10.0 mmHg Pulmonary Artery Systolic Pressu 43.9 mmHg Right Ventricular Systolic Press 43.9 mmHg FINDINGS LEFT VENTRICLE The left ventricular systolic function is normal with an estimated ejection fraction in the range of 55-60%. Wall thickness is measured at the upper limits of normal. Normal left ventricular size. RIGHT VENTRICLE Normal right ventricular size and systolic function. LEFT ATRIUM The left atrial size is normal. RIGHT ATRIUM The right atrial size is normal. ATRIAL SEPTUM AORTA The aortic root and proximal ascending aorta are normal in size on limited imaging. MITRAL VALVE Mitral annular calcification is present. Trace mitral valve regurgitation. AORTIC VALVE Trileaflet aortic valve. No aortic valve stenosis or regurgitation. TRICUSPID VALVE There is moderate tricuspid regurgitation. The estimated pulmonary arterial pressure is 43.9 mmHg. PULMONARY VALVE No pulmonary valve regurgitation or stenosis. VESSELS The inferior vena cava is normal in size. PERICARDIUM No pericardial effusion. Enrrique Mann MD (Electronically Signed) Final Date:13 September 2017 14:35
--- NOTE | 2017-09-13 15:54 | HHI.PR ---
Subjective Remarks Patient denies further chest pain Objective Vitals Vital Signs Date Time Temp Pulse Resp B/P (MAP) Pulse Ox O2 Delivery O2 Flow Rate FiO2 09/13/17 14:38 18 09/13/17 12:00 96.2 56 18 142/52 (82) 96 09/13/17 08:00 96.5 51 18 142/59 (86) 55 09/13/17 05:09 152/70 (97) 09/13/17 04:00 60 09/13/17 03:45 98.8 60 18 183/74 (110) 95 09/12/17 23:32 63 09/12/17 23:14 98.7 61 17 168/72 (104) 94 09/12/17 21:45 65 09/12/17 20:00 94 Nasal Cannula 2.00 09/12/17 19:15 97.9 83 17 148/65 (92) 94 09/12/17 17:15 97.1 59 18 172/73 (106) 93 09/12/17 16:00 54 09/12/17 16:00 98.5 60 13 155/91 (112) 96 Result Diagram: 09/13/17 0437 09/12/17 0346 Other Results Laboratory Tests Test 09/11/17 06:00 09/11/17 21:20 09/11/17 21:28 09/12/17 01:50 Blood Urea Nitrogen 17 MG/DL Creatinine 0.83 MG/DL Random Glucose 212 MG/DL Calcium Level 9.2 MG/DL Sodium Level 138 MEQ/L Potassium Level 4.2 MEQ/L Chloride Level 105 MEQ/L Carbon Dioxide Level 25.9 MEQ/L Anion Gap 7 MEQ/L Estimat Glomerular Filtration Rate 67 ML/MIN Urine Color YELLOW Urine Turbidity CLEAR Urine pH 6.5 Urine Specific [place] 1.015 Urine Protein 30 mg/dL Urine Glucose (UA) 1000 mg/dL Urine Ketones NEG mg/dL Urine Occult Blood NEG Urine Nitrite NEG Urine Bilirubin NEG Urine Urobilinogen LESS THAN 2.0 MG/DL Urine Leukocyte Esterase NEG Urine RBC 1 /hpf Urine WBC 1 /hpf Urine Squamous Epithelial Cells <1 /hpf Urine Amorphous Sediment RARE Urine Hyaline Casts 3 /lpf Microscopic Urinalysis Comment CATH-CULT NOT IND Total Creatine Kinase 276 U/L Creatine Kinase MB 3.0 NG/ML Creatine Kinase MB % 1.1 % Troponin I LESS THAN 0.02 NG/ML Nasal Screen MRSA (PCR) MRSA NOT DETECTED Test 09/12/17 03:46 09/12/17 09:50 09/13/17 04:37 White Blood Count 10.2 TH/MM3 Red Blood Count 3.72 MIL/MM3 Hemoglobin 11.2 GM/DL 11.3 GM/DL Hematocrit 33.6 % 33.5 % Mean Corpuscular Volume 90.3 FL Mean Corpuscular Hemoglobin 30.0 PG Mean Corpuscular Hemoglobin Concent 33.2 % Red Cell Distribution Width 16.6 % Platelet Count 146 TH/MM3 Mean Platelet Volume 9.1 FL Neutrophils (%) (Auto) 85.0 % Lymphocytes (%) (Auto) 8.3 % Monocytes (%) (Auto) 6.6 % Eosinophils (%) (Auto) 0.0 % Basophils (%) (Auto) 0.1 % Neutrophils # (Auto) 8.7 TH/MM3 Lymphocytes # (Auto) 0.8 TH/MM3 Monocytes # (Auto) 0.7 TH/MM3 Eosinophils # (Auto) 0.0 TH/MM3 Basophils # (Auto) 0.0 TH/MM3 CBC Comment DIFF FINAL Differential Comment Blood Urea Nitrogen 22 MG/DL Creatinine 1.12 MG/DL Random Glucose 295 MG/DL Calcium Level 9.0 MG/DL Magnesium Level 1.6 MG/DL Sodium Level 136 MEQ/L Potassium Level 4.6 MEQ/L Chloride Level 102 MEQ/L Carbon Dioxide Level 27.1 MEQ/L Anion Gap 7 MEQ/L Estimat Glomerular Filtration Rate 48 ML/MIN Total Creatine Kinase 351 U/L Creatine Kinase MB 5.6 NG/ML Creatine Kinase MB % 1.6 % Troponin I 0.17 NG/ML 0.30 NG/ML Imaging Last Impressions Knee X-Ray 09/11/17 0802 Signed Impressions: Service Date/Time: Monday, September 11, 2017 10:59 - CONCLUSION: Intact total knee arthroplasty for technique. Horton. Guy Boyd MD Objective Remarks GENERAL: This is a well-nourished, well-developed patient, in no apparent distress. CARDIOVASCULAR: Regular rate and rhythm without murmurs, gallops, or rubs. RESPIRATORY: Clear to auscultation. Breath sounds equal bilaterally. No wheezes , rales, or rhonchi. GASTROINTESTINAL: Abdomen soft, non-tender, nondistended. Normal active bowel sounds MUSCULOSKELETAL: Extremities without clubbing, cyanosis, or edema. NEURO: Alert & Oriented x4 to person, place, time, situation. Moves all ext x4 A/P Problem List: (1) Osteoarthritis of left knee ICD Codes: M17.12 - Unilateral primary osteoarthritis, left knee Status: Chronic Plan: - Patient is a 72 y/o female with osteoarthritis, HTN, CAD, Hyperlipidemia, COPD , and diabetes mellitus who was admitted to [facility] [place] on 09/11/17 for left total knee arthroplasty with Dr. Whitman - Post-op pain control per Ortho - IS - PT daily - bowel regiment - DVT prophylaxis with Eliquis (2) DM (diabetes mellitus) ICD Codes: E11.9 - Type 2 diabetes mellitus without complications Status: Chronic Plan: - NovoLog SSI - NPH 60 unit SQ BID (3) HTN (hypertension) ICD Codes: I10 - Essential (primary) hypertension Status: Chronic Plan: - Home meds continued - Monitor (4) Hyperlipidemia ICD Codes: E78.5 - Hyperlipidemia, unspecified Status: Chronic Plan: - Pt does not tolerate statins - Diet controlled - Continued outpatient management upon discharge (5) CAD (coronary artery disease) ICD Codes: I25.10 - Atherosclerotic heart disease of [place] coronary artery without angina pectoris Status: Chronic Plan: - Pt follows with Dr. Carreno as an outpt - Home meds continued (6) Psoriatic arthritis ICD Codes: L40.50 - Arthropathic psoriasis, unspecified Status: Chronic (7) Chest pain ICD Codes: R07.9 - Chest pain, unspecified Status: Acute Plan: transfer to [facility] consult [employer] and cardiology Patient seen by Dr. Jeffers Echo cardiogram reveals: The left ventricular systolic function is normal with an estimated ejection fraction in the range of 55-60%. Wall thickness is measured at the upper limits of normal. Normal left ventricular size. Trace mitral valve regurgitation. There is moderate tricuspid regurgitation. The estimated pulmonary arterial pressure is 43.9 mmHg. Troponin trend 0.02, 0.17, 0.30 Dr. Berg discussed case with Dr. Jeffers who recommends no further cardiac work up F/U with Dr. Carreno after DC Problem Qualifiers (1) Osteoarthritis of left knee: Qualified Codes: M17.12 - Unilateral primary osteoarthritis, left knee (2) DM (diabetes mellitus): Angeles Kohli Sep 13, 2017 15:54
[2017-09-13] MEDS: DOCUSATE SODIUM 50 MG/SENNA 8.6 MG TAB PO SCH (21:34)
[2017-09-14] MEDS: ACETAMINOPHEN/HYDROcodone 325 MG/7.5 MG TAB PO PRN ×4 (01:21→13:53)
[2017-09-14 03:03] VITALS: BP 186/75; PULSE 67; RESP 18; TEMP 97.7; O2SAT 95
[2017-09-14 03:44] VITALS: PULSE 58
[2017-09-14 07:41] VITALS: BP 166/79; PULSE 63; RESP 18; TEMP 96.3; O2SAT 95
[2017-09-14] MEDS: METOPROLOL TARTRATE 50 MG TAB PO SCH (09:00)
[2017-09-14] MEDS: DOCUSATE SODIUM 50 MG/SENNA 8.6 MG TAB PO SCH (09:59)
[2017-09-14] MEDS: FOLIC ACID 1 MG TAB PO SCH (09:59)
[2017-09-14] MEDS: DOCUSATE SODIUM 100 MG CAP PO SCH (09:59)
[2017-09-14] MEDS: ASPIRIN 81 MG CHEW TAB CHEW SCH (10:00)
[2017-09-14] MEDS: MULTIVITAMINS/MINERALS THERAPEUTIC TAB PO SCH (10:00)
[2017-09-14] MEDS: PANTOPRAZOLE SOD 40 MG DELAYED RELEASE TAB PO SCH (10:00)
[2017-09-14] MEDS: GABAPENTIN 300 MG CAP PO SCH ×2 (10:00→13:53)
[2017-09-14] MEDS: LISINOPRIL 20 MG TAB PO SCH (10:00)
[2017-09-14] MEDS: ISOSORBIDE MONONITRATE 60 MG TAB PO SCH (10:00)
[2017-09-14] MEDS: clonazePAM 0.5 MG TAB PO SCH (10:00)
[2017-09-14] MEDS: amLODIPine BESYLATE 5 MG TAB PO SCH (10:01)
[2017-09-14] MEDS: INSULIN ASPART SUPPLEMENTAL SCALE SQ SCH ×2 (10:07→12:00)
[2017-09-14] MEDS: INSULIN ASPART 1,000 UNITS/10 ML VIAL SQ SCH ×2 (10:07→12:00)
[2017-09-14] MEDS: INSULIN HUMAN NPH 1,000 UNITS/10 ML VIAL SQ SCH (10:08)
[2017-09-14 11:45] VITALS: BP 115/63; PULSE 68; RESP 18; TEMP 97.1; O2SAT 97
[2017-09-14] MEDS: LACTATED RINGER'S 1000 ML INJ 1,000 ML IV SCH (11:45)
--- NOTE | 2017-09-14 14:38 | PD.ORT.PN ---
Subjective Subjective Remarks Pt comfortable today. Objective Vitals Vital Signs Date Time Temp Pulse Resp B/P (MAP) Pulse Ox O2 Delivery O2 Flow Rate FiO2 09/14/17 11:45 97.1 68 18 115/63 (80) 97 09/14/17 10:59 18 09/14/17 07:41 96.3 63 18 166/79 (108) 95 09/14/17 06:48 18 09/14/17 03:44 58 09/14/17 03:03 97.7 67 18 186/75 (112) 95 09/13/17 23:50 97.9 60 18 165/69 (101) 94 09/13/17 23:42 63 09/13/17 22:37 Room Air 09/13/17 19:44 70 09/13/17 19:36 93 21 09/13/17 19:05 98.0 65 18 173/73 (106) 94 09/13/17 16:00 98.1 60 18 137/50 (79) 95 I/O 09/13/17 09/13/17 09/13/17 09/14/17 09/14/17 09/14/17 07:00 15:00 23:00 07:00 15:00 23:00 Intake Total 360 ml 480 ml 360 ml 480 ml Output Total 1000 ml Balance -640 ml 480 ml 360 ml 480 ml Intake Oral 360 ml 480 ml 360 ml 480 ml Output Urine Total 1000 ml # Voids 1 5 # Bowel Movements 0 0 0 Result Diagram: 09/13/17 0437 09/12/17 0346 Objective Remarks NV intact to toes. Negative Michelle sign. Sitting up at present in class. Assessment & Plan Ortho Post Op Day #: 3 Problem List: Assessment and Plan Cont PT today, wound care. Home today. Tim Whitman MD Sep 14, 2017 14:37
--- NOTE | 2017-09-14 14:41 | HHI.DS ---
Discharge Summary Admission Date Sep 11, 2017 at 05:25 Discharge Date: Sep 14, 2017 Admitting Diagnosis Osteoarthritic degeneration left knee. Diagnosis: (1) Status post total left knee replacement Diagnosis: Principal ICD Codes: Z96.652 - Presence of left artificial knee joint Brief History This is a 72 year old female patient CBC/BMP: 09/13/17 0437 09/12/17 0346 Significant Findings Laboratory Tests Test 09/11/17 21:20 09/11/17 21:28 09/12/17 01:50 09/12/17 03:46 Urine Protein 30 mg/dL (NEG-TRACE) Urine Glucose (UA) 1000 mg/dL (NEG) Total Creatine Kinase 276 U/L (26-192) 351 U/L (26-192) Troponin I LESS THAN 0.02 NG/ML 0.17 NG/ML (0.02-0.05) Red Blood Count 3.72 MIL/MM3 (4.00-5.30) Hemoglobin 11.2 GM/DL (11.6-15.3) Hematocrit 33.6 % (35.0-46.0) Platelet Count 146 TH/MM3 (150-450) Neutrophils (%) (Auto) 85.0 % (16.0-70.0) Lymphocytes (%) (Auto) 8.3 % (9.0-44.0) Neutrophils # (Auto) 8.7 TH/MM3 (1.8-7.7) Lymphocytes # (Auto) 0.8 TH/MM3 (1.0-4.8) Blood Urea Nitrogen 22 MG/DL (7-18) Creatinine 1.12 MG/DL (0.50-1.00) Random Glucose 295 MG/DL (74-106) Estimat Glomerular Filtration Rate 48 ML/MIN (>89) Creatine Kinase MB 5.6 NG/ML (0.5-3.6) Test 09/12/17 09:50 09/13/17 04:37 Troponin I 0.30 NG/ML (0.02-0.05) Hemoglobin 11.3 GM/DL (11.6-15.3) Hematocrit 33.5 % (35.0-46.0) PE at Discharge NV intact to toes. Negative Michelle sign. Sitting up at present in class. Hospital Course This patient underwent a left total knee arthroplasty on day of admission. She received a course of prophylactic IV antibiotics and within 23 hours started on anticoagulation therapy. The night of surgery she developed chest pain and was transferred to the intensive care unit for evaluation and treatment. She improved and was transferred back to the floor within 36 hours. She continued physical therapy and daily wound care. She remained afebrile vital signs stable and neurovascularly intact tolerating food and fluid well. She tolerated by mouth pain meds and was discharged to home with home healthcare on the third postoperative day in good condition with instructions for follow-up care and appointment to the office for recheck. Pt Condition on Discharge: Good Discharge Disposition: Disch w/ Home Health Serv Discharge Instructions Diet Instructions: As Tolerated, No Restrictions Activities You Can Perform: Full Weight Bearing, Shower Only-No Bath Activities to Avoid: Bathing, Driving Tim Whitman MD Sep 14, 2017 14:41
[2017-09-14 16:00] VITALS: BP 95/56; PULSE 107; RESP 18; TEMP 98.7; O2SAT 95
== END 2017-09-14 16:44 | disposition home health service (06) | DRG 470 ==
LOC: HSDI 05:25 → N06B 12:03 → N03B 09-12 01:33 → N06A 09-12 17:15
PROVIDERS: ADMIT Surgery; ATTEND Surgery
PROC: 3E0T3BZ Introduction of Anesthetic Agent into Peripheral Nerves and Plexi, Percutaneous Approach (ICD-10-PCS; 2017-09-11)
PROC: 0SRD0J9 Replacement of Left Knee Joint with Synthetic Substitute, Cemented, Open Approach (ICD-10-PCS; principal; 2017-09-11 07:53)
DX: M17.12 Unilateral primary osteoarthritis, left knee (principal); E11.21 Type 2 diabetes mellitus with diabetic nephropathy; E11.40 Type 2 diabetes mellitus with diabetic neuropathy, unspecified; R07.89 Other chest pain; I25.10 Atherosclerotic heart disease of native coronary artery without angina pectoris; I10 Essential (primary) hypertension; K59.00 Constipation, unspecified; E78.5 Hyperlipidemia, unspecified; I25.2 Old myocardial infarction; K21.9 Gastro-esophageal reflux disease without esophagitis; L40.50 Arthropathic psoriasis, unspecified; J43.9 Emphysema, unspecified; M79.7 Fibromyalgia; F41.9 Anxiety disorder, unspecified; M06.9 Rheumatoid arthritis, unspecified; Z87.891 Personal history of nicotine dependence; Z95.1 Presence of aortocoronary bypass graft; Z95.5 Presence of coronary angioplasty implant and graft; Z79.4 Long term (current) use of insulin; Z88.1 Allergy status to other antibiotic agents; Z88.2 Allergy status to sulfonamides; Z88.8 Allergy status to other drugs, medicaments and biological substances
CPT/HCPCS: 71045; 73560; 80048; 81001; 82550; 82552; 82948; 83735; 84484; 85014; 85018; 85025; 86850; 86900; 86901; 87641; 93005; 93306; 94150; C1776; C9290; J0690; J1100; J1815; J2250; J2270; J2405; J3010; J3370; J7050; J7120; L1830

== ENCOUNTER 2017-10-08 21:09 | Emergency (ER) | payer MEDICARE ==
[~2017-10-08] VITALS: Ht 157.5 cm; Wt 72.5 kg
[~2017-10-08 21:09] MED LIST changes: +ADJUSTABLE COMM1 MIS; +CPMMACHINE; -PLAV75TA29 PO; +WALKER WHEELS/F1 MIS
[2017-10-08 22:18] VITALS: BP 156/65; PULSE 75; RESP 18; TEMP 98.3; O2SAT 98
[2017-10-08 23:37] VITALS: BP 157/72; PULSE 76; RESP 18; O2SAT 98
[2017-10-09] MEDS ORDERED: MUPI2%T TOPICAL
[2017-10-09] MEDS ORDERED: CEPH-460 PO
--- NOTE | 2017-10-09 | PD ---
HPI Chief Complaint: Skin Problem Time Seen by Provider: 23:36 Travel History International Travel<30 days: No Contact w/Intl Traveler<30days: No Traveled to known affect area: No History of Present Illness HPI The patient is a 72-year-old female that had a total knee on the second of this month by Dr. Whitman. She had an infection on the left lee on the same knee. Initially she was put on doxycycline without a response and then put on Levaquin. Initially the Levaquin seemed to help the infection but then it went back to the original border. The borders were initially marked by Dr. Whitman. She denies any fever and there is never been a red streak. Apparently, the ultrasound of the leg was negative. The patient has multiple allergies and cannot take sulfa drugs or erythromycin type antibiotics. PFSH Past Medical History Hx Anticoagulant Therapy: Yes Arthritis: Yes Asthma: No Autoimmune Disease: No Anxiety: Yes Depression: Yes Heart Rhythm Problems: No Cancer: Yes (SQUAMOUS CELL ON NOSE - EXCISED) Cardiac Catheterization: No Cardiovascular Problems: Yes High Cholesterol: Yes (TRIGLYCERIDES) Chemotherapy: No Chest Pain: Yes Congestive Heart Failure: No COPD: No Cerebrovascular Accident: No Coronary Artery Disease: Yes Diabetes: Yes Patient Takes Glucophage: No Diminished Hearing: No Endocrine: Yes Gastrointestinal Disorders: Yes (ACID REFLUX ) GERD: Yes Glaucoma: No Genitourinary: No Headaches: Yes Hepatitis: No Hiatal Hernia: No Hypertension: Yes Immune Disorder: Yes (PSORIASIS) Implanted Vascular Access Dvce: Yes Kidney Stones: No Medical other: Yes (PSORIATIC ARTHRITIS) Musculoskeletal: Yes (OSTEO/RHEUMATOID ARTHRITIS, CHRONIC BACK PAIN, BENJI KNEE PAIN) Neurologic: Yes (DIABETIC NEUROPATHY, FINGERS, HANDS AND FEET, OCULAR MIGRAINES ,FIBROMYALGIA) Psychiatric: Yes (DEPRESSION & ANXIETY ,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) Reproductive: No Respiratory: Yes (COPD, INHALERS) Integumentary: Yes (psoriasis) Migraines: Yes (VISUAL MIGRAINES) Myocardial Infarction: No Renal Failure: No Seizures: No Sleep Apnea: No Thyroid Disease: No Ulcer: No Influenza Vaccination: No ?: Not Menopausal: Yes Past Surgical History Abdominal Surgery: Yes (EXPLORATORY SURGERY, BLOCKED BOWEL FROM ADHESIONS) AICD: No Body Medical Devices: 2 STENTS IN HEART Cardiac Surgery: Yes (CARDIAC STENTS X 2) Coronary Artery Bypass Graft: Yes (DOUBLE BYPASS 1994) Coronary Stent: Yes (X2) Ear Surgery: Yes (PHACO BENJI) Endocrine Surgery: No Eye Surgery: No Genitourinary Surgery: No Gynecologic Surgery: Yes (TOTAL HYSTERECTOMY) Hysterectomy: Yes Insulin Pump: No Joint Replacement: No Oral Surgery: No Pacemaker: No Thoracic Surgery: Yes (CABG, CARDIAC CATH) Other Surgery: Yes (BLOOD TRANSFUSION) Social History Alcohol Use: No Tobacco Use: No Substance Use: No Allergies-Medications (Allergen,Severity, Reaction): Coded Allergies: Sulfa (Sulfonamide Antibiotics) (Unverified Allergy, Severe, Rash, 10/08/17 ) azithromycin (Unverified Allergy, Severe, Rash, 10/08/17) budesonide (Verified Allergy, Severe, NAUSEA, PANIC ATTACKS, 10/08/17) IN NEBULIZER TREATMENTS ciprofloxacin (Unverified Allergy, Severe, "CAN'T REMEMBER", 10/08/17) PATIENT CANNOT RECALL TYPE OF REACTION erythromycin base (Unverified Allergy, Severe, Rash, 10/08/17) leflunomide (Unverified Allergy, Severe, Rash, 10/08/17) ITCHING; DEVELOPED ECZEMA montelukast (Verified Allergy, Severe, NAUSEA, 10/08/17) amlodipine (Unverified Allergy, Unknown, MUSCLE ACHES, 10/08/17) atorvastatin (Unverified Allergy, Unknown, MUSCLE ACHES, 10/08/17) choline fenofibrate (Unverified Allergy, Unknown, "CANNOT REMEMBER", ) cyclobenzaprine (Unverified Allergy, Unknown, "CANNOT REMEMBER", 10/08/17) pravastatin (Unverified Allergy, Unknown, MUSCLE ACHES, 10/08/17) simvastatin (Unverified Allergy, Unknown, MUSCLE ACHES, 10/08/17) niacin (Unverified Adverse Reaction, Severe, Cramping, 10/08/17) infliximab (Unverified Adverse Reaction, Unknown, Nausea/Vomiting, 10/08/17 ) infliximab-dyyb (Unverified Adverse Reaction, Unknown, Nausea/Vomiting, ) Uncoded Allergies: enbrel (Adverse Reaction, Unknown, Itching, 05/18/16) Reported Meds & Prescriptions Reported Meds & Active Scripts Active Adjustable Commode 3-in-1 (Device) 1 Mis Mis Ea .ROUTE DIRECTED CPM-Continuous Passive Motion Machine 1 Ea Device Ea .ROUTE DIRECTED Walker with Front Wheels (Device) 1 Mis Mis Ea .ROUTE DIRECTED Reported Rasuvo (Methotrexate (Antirheumatic)) 7.5 Mg/0.15 Ml Inj 17.5 WEEKLY Isosorbide Mononitrate ER (Isosorbide Mononitrate) 30 Mg Patircia 60 Mg PO DAILY Novolin N Inj (Insulin Human NPH) 100 Unit/Ml Inj 50 Units SQ BID Ultram (Tramadol HCl) 50 Mg Tab 50 Mg PO QID PRN Lovaza (Pibke-7-Ityu Ethyl Esters) 1 Gm Cap 2 Gm PO BID Nitrostat SL (Nitroglycerin) 0.4 Mg Subl 0.4 Mg SL DIRECTED PRN 1 tablet under the tongue as needed for chest pain. Repeat every 5 minutes for a total of 3 DOSES or call 911 if NO relief. Metoprolol Tartrate 50 Mg Tab 50 Mg PO BID Lisinopril 40 Mg Tab 40 Mg PO DAILY Gabapentin 300 Mg Cap 300 Mg PO TID Folic Acid 1 Mg Tablet 1 Mg PO DAILY Klonopin (Clonazepam) 0.5 Mg Tab 0.5 Mg PO BID Vitamin D-1000 (Cholecalciferol) 1,000 Unit Tab 2,000 Units PO EVERY OTHER DAY Aspirin 81 Mg Chew 81 Mg CHEW DAILY Norvasc (Amlodipine Besylate) 2.5 Mg Tab 2.5 Mg PO DAILY Ventolin Hfa 18 GM Inh (Albuterol Sulfate) 90 Mcg/Act Aer 2 Puff INH Q4-6H PRN Review of Systems Except as stated in HPI: all other systems reviewed are Neg Physical Exam Narrative GENERAL: Well-nourished, well-developed patient. SKIN: Focused skin assessment warm/dry. There is an 8X3 centimeter elliptical area of apparent cellulitis on the anterior left tibia. No fluctuance is present in this wound and there is no red streak. HEAD: Normocephalic. EYES: No scleral icterus. No injection or drainage. NECK: Supple, trachea midline. No JVD or lymphadenopathy. CARDIOVASCULAR: Regular rate and rhythm without murmurs, gallops, or rubs. RESPIRATORY: Breath sounds equal bilaterally. No accessory muscle use. GASTROINTESTINAL: Abdomen soft, non-tender, nondistended. MUSCULOSKELETAL: No cyanosis, or edema. BACK: Nontender without obvious deformity. No CVA tenderness. Data Data Last Documented VS Vital Signs Date Time Temp Pulse Resp B/P (MAP) Pulse Ox O2 Delivery O2 Flow Rate FiO2 10/08/17 23:37 18 10/08/17 23:37 76 157/72 (100) 98 Room Air 10/08/17 22:18 98.3 [facility] Medical Decision Making Medical Screen Exam Complete: Yes Emergency Medical Condition: Yes Medical Record Reviewed: Yes Differential Diagnosis Cellulitis, allergic reaction, contact dermatitis, abscess-unlikely Narrative Course The patient appears to have a cellulitis the anterior tibial region. She has not tried heat to the area and has not used adequate elevation. The patient will be recommended a heating pad on its lowest setting an interposed a towel between her skin and the pad. She needs to elevate her leg above her heart. She is given Bactroban ointment and will be tried on Keflex. She will follow- up as scheduled with Dr. Whitman this . Diagnosis Primary Impression: Cellulitis of left lower extremity Additional Instructions: As we discussed, elevate the leg above your heart. Use a heating pad and turned on its lowest setting an interpose a towel between your skin and the pad to avoid toussaint. Warmth is useful but hot is dangerous and does not produce any better results. The antibiotic ointment is put on twice daily, a thin coat, over the reddened area. Med/Other Pt SpecificInfo: Prescription(s) given Scripts Cephalexin (Keflex) 500 Mg Capsule 500 MG PO QID for Infection for 10 Days, CAP 0 Refills Prov: Zachary Beaver MD 10/09/17 Mupirocin Topical (Bactroban Topical) 22 Gm Cream 1 APPLIC TOPICAL BID for Mgmt Bacterial Infection, #1 TUBE 0 Refills Prov: Zachary Beaver MD 10/09/17 Disposition: DISCHARGE HOME Condition: Stable Zacahry Beaver MD Oct 09, 2017 00:00
[2017-10-09] MEDS ORDERED: CEPHALEXIN MONOHYDRATE 500 MG CAP PO ONE (00:15)
[2017-10-09] MEDS ORDERED: MUPIROCIN 2% OINT 22 GM TUBE TOPICAL ONE (00:15)
[2017-10-09 00:29] VITALS: BP 166/70
== END 2017-10-09 00:49 | disposition home or self-care (01) ==
LOC: PHED 21:09
DX: L03.116 Cellulitis of left lower limb (principal); J44.9 Chronic obstructive pulmonary disease, unspecified; I10 Essential (primary) hypertension; I25.10 Atherosclerotic heart disease of native coronary artery without angina pectoris; E78.00 Pure hypercholesterolemia, unspecified; E11.40 Type 2 diabetes mellitus with diabetic neuropathy, unspecified; F32.9 Major depressive disorder, single episode, unspecified; K21.9 Gastro-esophageal reflux disease without esophagitis; M06.9 Rheumatoid arthritis, unspecified; Z95.1 Presence of aortocoronary bypass graft; Z95.5 Presence of coronary angioplasty implant and graft; Z88.2 Allergy status to sulfonamides; Z88.1 Allergy status to other antibiotic agents; Z88.8 Allergy status to other drugs, medicaments and biological substances; Z79.82 Long term (current) use of aspirin; Z79.4 Long term (current) use of insulin; Z79.899 Other long term (current) drug therapy
CPT/HCPCS: 99284

== ENCOUNTER 2017-10-22 11:31 | Emergency (ER) | payer MEDICARE ==
[~2017-10-22 11:31] MED LIST changes: +CEPH-460 PO; +MUPI2%T TOPICAL
[2017-10-22 11:35] VITALS: BP 177/71; PULSE 58; RESP 14; TEMP 98.2; O2SAT 99
[2017-10-22] MEDS ORDERED: SODIUM CHLORIDE 0.9% FLUSH 10 ML FLUSH IV FLUSH PRN (12:00)
--- NOTE | 2017-10-22 12:05 | PD ---
HPI Chief Complaint: Altered Mental Status Time Seen by Provider: 11:55 Travel History International Travel<30 days: No Contact w/Intl Traveler<30days: No Traveled to known affect area: No History of Present Illness HPI The patient was seen and examined in the presence of the nurse. This patient is brought in by her . She complains of some shortness of breath. This is not an uncommon situation as she has COPD. She uses inhaler at home as needed. She denies productive cough or fever or chest pain. She quit smoking a long time ago. She also has had some disorientation spells over the last couple of days. She was long-term taking Narco and recently switched to tramadol. Also taking clonazepam. Does not think she is in withdrawal. sHe did cut back from 2 to 1 clonazepam a few days ago. Denies overdose or overmedication. No fever or head injury. Symptoms severity is moderate. No alleviating factors. No auditory or visual hallucination. No psychiatric history. No exacerbating factors PFSH Past Medical History Hx Anticoagulant Therapy: Yes Arthritis: Yes Asthma: No Autoimmune Disease: No Anxiety: Yes Depression: Yes Heart Rhythm Problems: No Cancer: Yes (SQUAMOUS CELL ON NOSE - EXCISED) Cardiac Catheterization: No Cardiovascular Problems: Yes High Cholesterol: Yes (TRIGLYCERIDES) Chemotherapy: No Chest Pain: Yes Congestive Heart Failure: No COPD: No Cerebrovascular Accident: No Coronary Artery Disease: Yes Diabetes: Yes Diminished Hearing: No Endocrine: Yes Gastrointestinal Disorders: Yes (ACID REFLUX ) GERD: Yes Glaucoma: No Genitourinary: No Headaches: Yes Hepatitis: No Hiatal Hernia: No Hypertension: Yes Immune Disorder: Yes (PSORIASIS) Implanted Vascular Access Dvce: Yes Kidney Stones: No Musculoskeletal: Yes (OSTEO/RHEUMATOID ARTHRITIS, CHRONIC BACK PAIN, BENJI KNEE PAIN) Neurologic: Yes (DIABETIC NEUROPATHY, FINGERS, HANDS AND FEET, OCULAR MIGRAINES ,FIBROMYALGIA) Psychiatric: Yes (DEPRESSION & ANXIETY ,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) Reproductive: No Respiratory: Yes Integumentary: Yes (psoriasis) Migraines: Yes (VISUAL MIGRAINES) Myocardial Infarction: No Renal Failure: No Seizures: No Sleep Apnea: No Thyroid Disease: No Ulcer: No Menopausal: Yes Past Surgical History Abdominal Surgery: Yes (EXPLORATORY SURGERY, BLOCKED BOWEL FROM ADHESIONS) AICD: No Body Medical Devices: 2 STENTS IN HEART Cardiac Surgery: Yes (CARDIAC STENTS X 2) Coronary Artery Bypass Graft: Yes (DOUBLE BYPASS 1994) Coronary Stent: Yes (X2) Ear Surgery: Yes (PHACO BENJI) Endocrine Surgery: No Eye Surgery: No Genitourinary Surgery: No Gynecologic Surgery: Yes (TOTAL HYSTERECTOMY) Hysterectomy: Yes Insulin Pump: No Joint Replacement: No Oral Surgery: No Pacemaker: No Thoracic Surgery: Yes (CABG, CARDIAC CATH) Other Surgery: Yes (BLOOD TRANSFUSION) Social History Alcohol Use: No Tobacco Use: No Substance Use: No Allergies-Medications (Allergen,Severity, Reaction): Coded Allergies: Sulfa (Sulfonamide Antibiotics) (Unverified Allergy, Severe, Rash, 10/08/17 ) azithromycin (Unverified Allergy, Severe, Rash, 10/08/17) budesonide (Verified Allergy, Severe, NAUSEA, PANIC ATTACKS, 10/08/17) IN NEBULIZER TREATMENTS ciprofloxacin (Unverified Allergy, Severe, "CAN'T REMEMBER", 10/08/17) PATIENT CANNOT RECALL TYPE OF REACTION erythromycin base (Unverified Allergy, Severe, Rash, 10/08/17) leflunomide (Unverified Allergy, Severe, Rash, 10/08/17) ITCHING; DEVELOPED ECZEMA montelukast (Verified Allergy, Severe, NAUSEA, 10/08/17) amlodipine (Unverified Allergy, Unknown, MUSCLE ACHES, 10/08/17) atorvastatin (Unverified Allergy, Unknown, MUSCLE ACHES, 10/08/17) choline fenofibrate (Unverified Allergy, Unknown, "CANNOT REMEMBER", ) cyclobenzaprine (Unverified Allergy, Unknown, "CANNOT REMEMBER", 10/08/17) pravastatin (Unverified Allergy, Unknown, MUSCLE ACHES, 10/08/17) simvastatin (Unverified Allergy, Unknown, MUSCLE ACHES, 10/08/17) niacin (Unverified Adverse Reaction, Severe, Cramping, 10/08/17) infliximab (Unverified Adverse Reaction, Unknown, Nausea/Vomiting, 10/08/17 ) infliximab-dyyb (Unverified Adverse Reaction, Unknown, Nausea/Vomiting, ) Uncoded Allergies: enbrel (Adverse Reaction, Unknown, Itching, 05/18/16) Reported Meds & Prescriptions Reported Meds & Active Scripts Active Adjustable Commode 3-in-1 (Device) 1 Mis Mis Ea .ROUTE DIRECTED CPM-Continuous Passive Motion Machine 1 Ea Device Ea .ROUTE DIRECTED Walker with Front Wheels (Device) 1 Mis Mis Ea .ROUTE DIRECTED Reported Plavix (Clopidogrel Bisulfate) 75 Mg Tab 75 Mg PO DAILY Rasuvo (Methotrexate (Antirheumatic)) 7.5 Mg/0.15 Ml Inj 17.5 WEEKLY Isosorbide Mononitrate ER (Isosorbide Mononitrate) 30 Mg Patricia 60 Mg PO DAILY Novolin N Inj (Insulin Human NPH) 100 Unit/Ml Inj 25 Units SQ BID Ultram (Tramadol HCl) 50 Mg Tab 50 Mg PO QID PRN Lovaza (Kswzq-5-Jwhx Ethyl Esters) 1 Gm Cap 2 Gm PO BID Nitrostat SL (Nitroglycerin) 0.4 Mg Subl 0.4 Mg SL DIRECTED PRN 1 tablet under the tongue as needed for chest pain. Repeat every 5 minutes for a total of 3 DOSES or call 911 if NO relief. Metoprolol Tartrate 50 Mg Tab 50 Mg PO BID Lisinopril 40 Mg Tab 40 Mg PO DAILY Gabapentin 300 Mg Cap 300 Mg PO BID Folic Acid 1 Mg Tablet 1 Mg PO DAILY Klonopin (Clonazepam) 0.5 Mg Tab 0.5 Mg PO BID Vitamin D-1000 (Cholecalciferol) 1,000 Unit Tab 2,000 Units PO EVERY OTHER DAY Aspirin 81 Mg Chew 81 Mg CHEW DAILY Norvasc (Amlodipine Besylate) 2.5 Mg Tab 2.5 Mg PO DAILY Ventolin Hfa 18 GM Inh (Albuterol Sulfate) 90 Mcg/Act Aer 2 Puff INH Q4-6H PRN Review of Systems General / Constitutional: No: Fever Eyes: No: Visual changes HENT: No: Headaches Cardiovascular: No: Chest Pain or Discomfort Respiratory: Positive: Shortness of Breath Gastrointestinal: No: Abdominal Pain Genitourinary: No: Dysuria Musculoskeletal: No: Pain Skin: No Rash Neurologic: Positive: Change in Mentation, No: Weakness Psychiatric: No: Depression Endocrine: No: Polydipsia Hematologic/Lymphatic: No: Easy Bruising Physical Exam Narrative GENERAL: Well-nourished, well-developed patient in no apparent distress. SKIN: Focused skin assessment reveals no rash and nodules. Skin is Warm and dry. HEAD: Atraumatic. Normocephalic. EYES: Pupils equal and round. No scleral icterus. No injection or drainage. ENT: No nasal bleeding or discharge. Mucous membranes pink and moist. NECK: Trachea midline. No JVD. No meningeal signs CARDIOVASCULAR: Regular rate and rhythm. No murmur appreciated. RESPIRATORY: No accessory muscle use. Clear to auscultation. Breath sounds equal bilaterally. GASTROINTESTINAL: Abdomen soft, non-tender, nondistended. Hepatic and splenic margins not palpable. MUSCULOSKELETAL: No obvious deformities. No clubbing. No cyanosis. No edema. Surgical scar of the left knee. No sign of infection there. Has a patch of macular erythema with a dressing over it on the left lee NEUROLOGICAL: Awake and alert. No obvious cranial nerve deficits. Motor grossly within normal limits. Normal speech. PSYCHIATRIC: Appropriate mood and affect; insight and judgment reasonable . Data Data Last Documented VS Vital Signs Date Time Temp Pulse Resp B/P (MAP) Pulse Ox O2 Delivery O2 Flow Rate FiO2 10/22/17 11:57 22 100 Room Air 10/22/17 11:35 98.2 58 177/71 (106) Orders Orders Complete Blood Count With Diff (10/22/17 11:59) Comprehensive Metabolic Panel (10/22/17 11:59) Thyroid Stimulating Hormone (10/22/17 11:59) Urinalysis - C+S If Indicated (10/22/17 11:59) Chest, Single Ap (10/22/17 11:59) Blood Glucose (10/22/17 11:59) Ecg Monitoring (10/22/17 11:59) Iv Access Insert/Monitor (10/22/17 11:59) Oximetry (10/22/17 11:59) Sodium Chloride 0.9% Flush (Ns Flush) (10/22/17 12:00) Labs Laboratory Tests Test 10/22/17 10:13 10/22/17 13:45 White Blood Count 7.8 TH/MM3 Red Blood Count 4.36 MIL/MM3 Hemoglobin 12.9 GM/DL Hematocrit 38.1 % Mean Corpuscular Volume 87.3 FL Mean Corpuscular Hemoglobin 29.6 PG Mean Corpuscular Hemoglobin Concent 33.9 % Red Cell Distribution Width 15.3 % Platelet Count 237 TH/MM3 Mean Platelet Volume 9.6 FL Neutrophils (%) (Auto) 73.6 % Lymphocytes (%) (Auto) 18.7 % Monocytes (%) (Auto) 6.7 % Eosinophils (%) (Auto) 0.7 % Basophils (%) (Auto) 0.3 % Neutrophils # (Auto) 5.8 TH/MM3 Lymphocytes # (Auto) 1.5 TH/MM3 Monocytes # (Auto) 0.5 TH/MM3 Eosinophils # (Auto) 0.1 TH/MM3 Basophils # (Auto) 0.0 TH/MM3 CBC Comment DIFF FINAL Differential Comment Blood Urea Nitrogen 17 MG/DL Creatinine 1.18 MG/DL Random Glucose 190 MG/DL Total Protein 8.4 GM/DL Albumin 3.6 GM/DL Calcium Level 10.0 MG/DL Alkaline Phosphatase 72 U/L Aspartate Amino Transf (AST/SGOT) 23 U/L Alanine Aminotransferase (ALT/SGPT) 14 U/L Total Bilirubin 1.0 MG/DL Sodium Level 136 MEQ/L Potassium Level 4.8 MEQ/L Chloride Level 100 MEQ/L Carbon Dioxide Level 25.5 MEQ/L Anion Gap 11 MEQ/L Estimat Glomerular Filtration Rate 45 ML/MIN Thyroid Stimulating Hormone 3rd Gen 2.340 uIU/ML Urine Color YELLOW Urine Turbidity CLEAR Urine pH 6.0 Urine Specific Van 1.013 Urine Protein TRACE mg/dL Urine Glucose (UA) NEG mg/dL Urine Ketones NEG mg/dL Urine Occult Blood NEG Urine Nitrite NEG Urine Bilirubin NEG Urine Urobilinogen LESS THAN 2.0 MG/DL Urine Leukocyte Esterase TRACE Urine WBC 1 /hpf Urine Squamous Epithelial Cells 9 /hpf Urine Hyaline Casts 14 /lpf Microscopic Urinalysis Comment CATH-CULT NOT IND MDM Medical Decision Making Medical Screen Exam Complete: Yes Emergency Medical Condition: Yes Medical Record Reviewed: Yes Differential Diagnosis COPD, pneumonia, medication side effect, medication withdrawal Narrative Course I have reviewed the patient's electronic medical record. Noon: I evaluated the patient and ordered a workup. She seems neurologically intact and symptoms are global. I don't see evidence of CVA or TIA 1410: Chest x-ray is negative, part of the labs are back and normal. On recheck she looks clinically well 1600: Rest of the labs are normal. Patient stable for outpatient follow-up. I suspect this may be medication induced or related. She is on multiple sedating medications. We discussed long-term wean off of the clonazepam. Diagnosis Primary Impression: Confusion and disorientation Additional Impression: Medication side effect Qualified Codes: T88.7XXA - Unspecified adverse effect of drug or medicament, initial encounter Additional Instructions: The patient was advised to follow up with their physician and return if they worsen. Med/Other Pt SpecificInfo: Other Disposition: 01 DISCHARGE HOME Condition: Stable Van Barrera MD Oct 22, 2017 12:05
[2017-10-22] MEDS ORDERED: PLAV75TA29 PO (12:16)
[2017-10-22 12:22] LABS: AUTOMATED NEUTROPHIL # 5.8 TH/MM3 (1.8-7.7); BASOPHIL % 0.3 % (0.0-2.0); EOSINOPHIL # 0.1 TH/MM3 (0-0.4); EOSINOPHIL % 0.7 % (0.0-4.0); HEMATOCRIT 38.1 % (35.0-46.0); HEMOGLOBIN 12.9 GM/DL (11.6-15.3); LYMPH % 18.7 % (9.0-44.0); LYMPHOCYTE # 1.5 TH/MM3 (1.0-4.8); MEAN CELL VOLUME 87.3 FL (80.0-100.0); MEAN CORPUSCULAR HEMOGLOBIN 29.6 PG (27.0-34.0); MEAN CORPUSCULAR HGB CONC 33.9 % (32.0-36.0); MEAN PLATELET VOLUME 9.6 FL (7.0-11.0); MONO % 6.7 % (0.0-8.0); MONOCYTE # 0.5 TH/MM3 (0-0.9); NEUT % 73.6 % (16.0-70.0); PLATELET COUNT 237 TH/MM3 (150-450); RED BLOOD COUNT 4.36 MIL/MM3 (4.00-5.30); RED CELL DISTRIBUTION WIDTH 15.3 % (11.6-17.2); WHITE BLOOD COUNT 7.8 TH/MM3 (4.0-11.0)
--- NOTE | 2017-10-22 12:49 | RADRPT ---
EXAM DATE/TIME: 10/22/2017 12:28 [facility] COMPARISON: CHEST SINGLE AP, September 11, 2017, 21:03. INDICATIONS : Chest pain, short of breath MEDICAL HISTORY : Cardiovascular disease. Chronic obstructive pulmonary disease. Diabetes mellitus type II. GERD SURGICAL HISTORY : CABG. Coronary artery stent. ENCOUNTER: Initial ACUITY: 1 day PAIN SCORE: 5/10 LOCATION: Bilateral chest FINDINGS: The patient is post median sternotomy. The heart is normal in size. The visualized pulmonary parenchy ma is clear. The visualized osseous structures are intact. The exam is stable compared to previous da sintia 09/11/17. CONCLUSION: 1. Post surgical changes. No acute abnormality. Wiliam Donovan MD on October 22, 2017 at 12:46 Board Certified Radiologist. This report was verified electronically.
[2017-10-22 12:51] LABS: ALKALINE PHOSPHATASE 72 U/L (45-117); ALT (GPT) 14 U/L (10-53); TOTAL PROTEIN 8.4 GM/DL (6.4-8.2)
[2017-10-22 12:53] LABS: ALBUMIN 3.6 GM/DL (3.4-5.0); AST (GOT) 23 U/L (15-37); BICARBONATE 25.5 MEQ/L (21.0-32.0); BLOOD UREA NITROGEN 17 MG/DL (7-18); CHLORIDE 100 MEQ/L (98-107); CREATININE 1.18 MG/DL (0.50-1.00); GLOMERULAR FILTRATION RATE 45 ML/MIN (>89); GLUCOSE,RANDOM 190 MG/DL (74-106); SODIUM (NA) 136 MEQ/L (136-145)
[2017-10-22 15:05] LABS: BILIRUBIN, URINE NEG (NEG); BLOOD, URINE NEG (NEG); GLUCOSE,URINE NEG (NEG); HYALINE CAST, URINE 14 /lpf (RARE); KETONE, URINE NEG (NEG); NITRITE,URINE NEG (NEG); SQUAMOUS EPITHELIAL CELL URINE 9 /hpf (0-5); URINE COLOR YELLOW (YELLW/STRAW); URINE LEUKOCYTE ESTERASE TRACE (NEG)
== END 2017-10-22 16:34 | disposition home or self-care (01) ==
LOC: NEPC 11:31
DX: R41.0 Disorientation, unspecified (principal); T88.7XXA Unspecified adverse effect of drug or medicament, initial encounter; F32.9 Major depressive disorder, single episode, unspecified; E78.00 Pure hypercholesterolemia, unspecified; I25.10 Atherosclerotic heart disease of native coronary artery without angina pectoris; E11.40 Type 2 diabetes mellitus with diabetic neuropathy, unspecified; I10 Essential (primary) hypertension; Z95.1 Presence of aortocoronary bypass graft; Z95.5 Presence of coronary angioplasty implant and graft; Z79.01 Long term (current) use of anticoagulants; Z88.8 Allergy status to other drugs, medicaments and biological substances; Z88.2 Allergy status to sulfonamides; Z88.1 Allergy status to other antibiotic agents
CPT/HCPCS: 71045; 80053; 81001; 84443; 85025; 99284

== ENCOUNTER 2017-12-06 07:56 | Day surgery (SDC) | payer MEDICARE ==
[~2017-12-06] VITALS: Ht 157.5 cm; Wt 67.4 kg
[~2017-12-06 07:56] MED LIST changes: -CEPH-460 PO; -MUPI2%T TOPICAL; +PLAV75TA29 PO
[2017-12-06] MEDS ORDERED: IOHEXOL 350 MG/ML 100 ML BTL (for Cath Lab) OTHER ONE (07:57)
[2017-12-06 08:35] VITALS: BP 172/76; PULSE 51; RESP 18; TEMP 98; O2SAT 99
[2017-12-06] MEDS ORDERED: SODIUM CHLOR 0.9% 1000 ML INJ 1,000 ML IV SCH (08:45)
[2017-12-06] MEDS ORDERED: LORazepam 2 MG/ML VIAL ONE (11:14)
[2017-12-06] MEDS ORDERED: MIDAZOLAM HCL 2 MG/2 ML VIAL ONE ×2 (11:32→12:21)
[2017-12-06] MEDS ORDERED: HEPARIN-NS/PF FLUSH BAG 2,000 ML IV FLUSH ONE (11:32)
[2017-12-06] MEDS ORDERED: HEPARIN SODIUM - IV 10,000 UNITS/10 ML VIAL ONE (12:07)
[2017-12-06] MEDS ORDERED: NITROGLYCERIN INJ 5 ML ONE (12:07)
[2017-12-06] MEDS ORDERED: oxyCODONE/ACETAMINOPHEN 5 MG/325 MG TAB PO PRN (13:15)
[2017-12-06] MEDS ORDERED: ONDANSETRON HCL 4 MG/2 ML VIAL IV PUSH PRN (13:15)
[2017-12-06] MEDS ORDERED: SODIUM CHLOR 0.9% 250 ML INJ 250 ML IV PRN (13:15)
[2017-12-06] MEDS ORDERED: METOCLOPRAMIDE HCL 10 MG/2 ML VIAL IV PUSH PRN (13:15)
[2017-12-06] MEDS ORDERED: MISC INFORMATION XX ONE (13:15)
[2017-12-06] MEDS ORDERED: LORazepam 2 MG/ML VIAL IV PUSH PRN (13:15)
[2017-12-06] MEDS ORDERED: LIDOCAINE HCL 1% 50 ML VIAL INFIL PRN (13:15)
[2017-12-06] MEDS ORDERED: ATROPINE SULFATE 1 MG/ML VIAL IV PUSH PRN (13:15)
[2017-12-06] MEDS ORDERED: CLOPIDOGREL 300 MG TAB ONE (13:17)
--- NOTE | 2017-12-06 13:50 | MA ---
cc: Shamar Llanos MD DATE: 12/06/2017 PROCEDURES PERFORMED: 1. Peripheral angiography with first, second and third order visualization. 2. Descending aortography. 3. Bilateral common iliac artery atherectomy with CSI atherectomy catheter. 4. Percutaneous endovascular stenting with balloon expandable stents in bilateral common iliac arteries. METHOD: Risks, benefits and alternatives were discussed with the patient. The patient understood and consented to the procedure. The patient was brought into the catheterization lab, placed on the catheterization table. Bilateral groins were prepped and draped. The right groin was anesthetized with 2% lidocaine. The right common femoral artery was cannulated and a 5-Azeri long slender sheath was placed without difficulty. DESCENDING AORTOGRAPHY: 1. The descending aorta revealed a mild infrarenal descending abdominal aortic aneurysm that measured less than 3 cm. 2. The left common iliac artery has a 95% heavily calcified stenosis. Left external and internal iliac arteries have mild calcium present. Left common femoral artery has mild to moderate calcium present with eccentric stenosis, about 30%. Left superficial femoral artery has 80% stenosis throughout the proximal and midsegment, smaller caliber size, moderate calcium present. There is a knee prosthesis which was difficult to visualize, but the popliteal artery appears to have minor luminal irregularities. There is a 2-vessel runoff below the knee on the left lower extremity. Anterior tibial was occluded. Peroneal and posterior tibial arteries are patent. Peroneal feeds the dorsalis pedis distally. 3. The right common iliac artery has a 75-80% calcific stenosis. Right internal and external iliac arteries have minor luminal irregularities. Right common femoral has a 60-70% eccentric stenosis. PERCUTANEOUS INTERVENTION: Bilateral 6-Azeri, 21-cm Brite Tip sheaths were advanced to the level of the external iliac arteries. Hydra ST wires were navigated across the stenosis bilaterally, exchanged for 0.035 inch, 335 cm Viper wire. 2.0 mm CSI atherectomy catheter was then advanced. Orbital rotational atherectomy was performed in bilateral common iliac arteries at 120,000 revolutions per minute and postdilated then with a 7.0 x 20 mm Medtronic balloon. Repeat angiography showed residual stenosis. An 8.0 x 30 mm Medtronic balloon expandable stents were then deployed in a kissing fashion at the level of the bifurcation of the common iliac arteries without crossing into the aorta. Repeat angiography showed good stent apposition, BLANCO 3 flow, no residual stenosis. Both sheaths were removed, and a 6-Azeri long slender sheaths were placed. Heparin was administered throughout the entire procedure. PLAN: The patient will be monitored closely for any post-procedure complications. Hopefully this will translate well with symptomatic improvement, primarily in the left lower extremity and improve wound healing and what appears to be bone contusion in the pretibial region on the left. In addition recent knee operation. We may consider, after full recovery, staged potential intervention of the left superficial femoral artery but we will see how she does clinically. MD DIOGO Aguilar/SB , 01:20 PM , 01:49 PM
[2017-12-06] MEDS ORDERED: BACITRACIN OINT 0.9 GM PKT TOP ONE (14:00)
[2017-12-06] MEDS ORDERED: CLOPIDOGREL 300 MG TAB PO ONE (14:00)
[2017-12-07] MEDS ORDERED: CLOPIDOGREL 75 MG TAB PO SCH (09:00)
[2017-12-07] MEDS ORDERED: ASPIRIN 81 MG CHEW TAB PO SCH (09:00)
--- NOTE | 2017-12-07 11:29 | EKG ---
Date Performed: 12/06/2017 Time Performed: 08:45:26 PTAGE: 72 years EKG: Sinus bradycardia. Normal ECG except for rate PREVIOUS TRACING : 09/11/2017 20.47 Since the previous tracing, no significant change not ed DOCTOR: Michele Lin Interpretating Date/Time 12/07/2017 11:26:21
== END 2017-12-06 21:37 | disposition home or self-care (01) ==
LOC: HDOC 07:56 → HDIC 07:57 → HDOC 21:37
PROVIDERS: ATTEND Internal Medicine
DX: I70.213 Atherosclerosis of native arteries of extremities with intermittent claudication, bilateral legs (principal); I10 Essential (primary) hypertension; E11.9 Type 2 diabetes mellitus without complications; Z79.01 Long term (current) use of anticoagulants; Z79.4 Long term (current) use of insulin
CPT/HCPCS: 37221; 37223; 75625; 75710; 85002; 86850; 86900; 86901; 93005; 99152; 99153; C1714; C1725; C1751; C1769; C1876; C1893; J1644; J2060; J2250; J3010; Q9967

== ENCOUNTER 2018-01-04 06:30 | Day surgery (SDC) | payer MEDICARE ==
[~2018-01-04] VITALS: Ht 157.5 cm; Wt 68.5 kg
[~2018-01-04 06:30] MED LIST changes: -ADJUSTABLE COMM1 MIS; -CPMMACHINE; -FOLI1TAB6 PO; -LISI40TA PO; -METH3INJ; -TRAM50 PO
[2018-01-04] MEDS ORDERED: IOHEXOL 350 MG/ML 100 ML BTL (for Cath Lab) OTHER ONE (06:31)
[2018-01-04] MEDS ORDERED: IOHEXOL 350 MG/ML 50 ML BTL (for Cath Lab) OTHER ONE (06:31)
[2018-01-04 07:29] VITALS: BP 145/69; PULSE 56; RESP 18; TEMP 99.2; O2SAT 91
[2018-01-04 07:45] VITALS: TEMP 98.9
[2018-01-04] MEDS ORDERED: HEPARIN-NS/PF FLUSH BAG 2,000 ML IV FLUSH ONE (09:01)
[2018-01-04] MEDS ORDERED: MIDAZOLAM HCL 2 MG/2 ML VIAL ONE ×2 (09:01→09:44)
[2018-01-04] MEDS ORDERED: NITROGLYCERIN INJ 5 ML ONE (09:02)
[2018-01-04] MEDS ORDERED: HEPARIN SODIUM - IV 10,000 UNITS/10 ML VIAL ONE (09:02)
[2018-01-04] MEDS ORDERED: LORazepam 2 MG/ML VIAL IV PUSH ONE (09:15)
[2018-01-04] MEDS ORDERED: LIDOCAINE HCL 1% PF 30 ML VIAL ONE (09:31)
--- NOTE | 2018-01-04 10:50 | CATHPROC ---
[facility] HIS Report Study Information Study Number Admission Scheduled Start Study Start [id number] Jan 04 2018 6:30AM 01/04/2018 Jan 04 2018 9:21AM [place] [facility] Cath Endovascular Study Admit Source Facility Department Other [facility] - Reel Cart Operator Physician and Clinical Staff Initial Shamar Fagan Principal Clerk Mag Andrews,RN Other Adelina Hernandez,ASHER Recorder Wilberto Gonzales,RT(R) Scrub Terell Bravo,RT(R) Procedures Performed Procedure Location (Site) Vessel Name [facility]PER[facility] SFA (left) Femoral Art Wire insertion Fem Art (right) Femoral Art Equipment Time Automatic Splicing Machine Operator Description Size Mfg Part Number Used/Scraped DBP- CARDIOVASCULAR CATHETER, STEALTH CLASSIC 10:13 [id number] Used SYSTEMS INC. 2.0MM *[id number] CARDIOVASCULAR LUBRICANT, VIPERSLIDE VPR-SLD2 10:35 Used SYSTEMS INC. ATHERCTOMY *[id number] CARDIOVASCULAR VPR-GW-14 10:08 WIRE, FIRM (VIPER) 335 Used SYSTEMS INC. *[id number] WIRE, GUIDE APPROACH HYDRO [id number] 10:04 COOK/NIRU 300CM Used ST *[id number] 532-523 09:40 CORDIS/ NIRU RIM SUPER TORQUE CATHETER FR 5 Used *[id number] *[id number] BALLOON, ADMIRAL IN.PACT 5 X [id number] 10:23 [employer] 130CM Used 120 130CM *[id number] BALLOON, ADMIRAL IN.PACT 5 X [id number] 10:23 [employer] 130CM Used 120 130CM *[id number] CATHETER, FR5 TRAILBLAZER [id number] 10:01 [employer] 135CM Used .035 *[id number] 09:40 MALLINCKRODT SYRINGE, ANGIOMAT 150ML 150ML [id number] Used [id number] 09:40 MEDLINE INDUSTRIES PACK, CCL CUSTOM * Used *[id number] [id number] 09:40 MEDLINE PACER PEN, SKIN DUAL W/ RULER * Used *[id number] [id number] 09:40 [employer] MEDICAL WIRE, EXCHANGE 260CM 3MMJ 260CM Used *[id number] 09:40 NAMIC MANIFOLD, 4 PORT * Used *[id number] 09:40 NAMIC TUBING, HIGH PRESSURE 48" 48" Used *[id number] 09:40 NYCOMED OMNIPAQUE, 300 MG, 150ML 150ML [id number] Used [id number] 09:40 AGUSTIN MEDICAL BLANKET,WARM AIR CCL * Used *0249555 [id number] 09:40 TERUMO MEDICAL SHEATH, FR5 TERUMO (10CM) FR 5 Used *9433004 [id number] 10:23 TERUMO MEDICAL SHEATH, FR6 TERUMO (10CM) FR 6 Used *5457972 SHEATH, FR6 PINNACLE [id number] 09:56 TERUMO MEDICAL/NIRU FR 6 Used DESTINATION 45CM *5167680 WIRE, ANGLE GLIDE STIFF .035 [id number] 09:40 TERUMO MEDICAL/NIRU 260CM Used 260CM *[id number] Equipment Model, Serial, Lot Number and Expiration Data Description Model Number Serial Number Lot Number Expiration Date WIRE, FIRM (VIPER) 335 [id number] 01-07-2018 WIRE, GUIDE APPROACH HYDRO [id number] 05-07-2020 ST History: Allergies Allergy Reaction Arava Rash Cipro "CAN'T REMEMBER" Erythromycins Rash Flexeril "CANNOT REMEMBER" HMG-CoA Reductase Inhibitors MUSCLE ACHES niacin Cramping Remicade Nausea/Vomiting Sulfa Rash Trilipix "CANNOT REMEMBER" enbrel Itching Sulfa (Sulfonamide Antibiotics) Rash erythromycin base Rash ciprofloxacin "CAN'T REMEMBER" pravastatin MUSCLE ACHES simvastatin MUSCLE ACHES azithromycin Rash amlodipine MUSCLE ACHES cyclobenzaprine "CANNOT REMEMBER" atorvastatin MUSCLE ACHES infliximab Nausea/Vomiting leflunomide Rash choline fenofibrate "CANNOT REMEMBER" infliximab-dyyb Nausea/Vomiting budesonide NAUSEA, PANIC ATTACKS montelukast NAUSEA History: Other Current Smoker Method Quit Packs a Day Years Used Pack Years No Cigarettes 23 Years Ago 1 35 35 Labs Hgb (g/dl) Hct (%) WBC (l/cumm) Platelets (thousands) 11.60-17.00 35.00-51.00 4.00-11.00 150.00-450.00 12.6 39.1 7.7 221 Glucose (mg/dl) BUN (mg/dl) Creatinine (mg/dl) BUN:Creatinine (1:x) 74.00-106.00 7.00-18.00 0.50-1.30 10.00-20.00 168 15 0.8 18.8 Na (meq/l) K (meq/l) 136.00-145.00 3.50-5.10 138 4.8 INR (PTT:PT) 0.90-1.10 1 CPK-MB (ng/ML) 0.50-3.60 Not Drawn Medication Medication Total Dose (Bolus/Oral) Medication Total Dosage/Unit 1% XYLOCAINE 10 mL FENTANYL 100 mcg HEPARIN 5000 units VERSED 3 mg Medications (Bolus/Oral) Medication Time Given Dosage/Unit Administered By Reason VERSED 01/04/2018 9:44:56 AM 2 mg Adamy, Mag 2 mg VERSED given in lab by Mag Andrews RN in Left Antecubital via Peripheral IV. Ordered by Shamar Medina. FENTANYL 01/04/2018 9:45:20 AM 50 mcg Adamy, Mag 50 mcg FENTANYL given in lab by Mag Andrews RN in Left Antecubital via Peripheral IV. Ordered by Shamar Llanos. 1% XYLOCAINE 01/04/2018 9:51:10 AM 10 mL Shamar Llanos Patient arrived on 10 mL 1% XYLOCAINE given by Shamar Llanos in Right Groin via Subcutaneous. Ordere d by Shamar Llanos. HEPARIN 01/04/2018 9:58:15 AM 5000 units Karina Andrewsnifer 5000 units HEPARIN given in lab by Mag Andrews RN via Peripheral IV. Ordered by Shamar Llanos. VERSED 01/04/2018 10:16:26 AM 1 mg Adamy, Mag 1 mg VERSED given in lab by Mag Andrews RN in Left Antecubital via Peripheral IV. Ordered by Shamar Medina. FENTANYL 01/04/2018 10:16:37 AM 50 mcg Adamy, Mag 50 mcg FENTANYL given in lab by Mag Andrews RN in Left Antecubital via Peripheral IV. Ordered by Shamar Llanos. Medication (Drip) Medication Time Given Dosage/Unit Concentration/Unit Diluent (ml) Solution IV Solutions 01/04/2018 9:34:33 AM 0 mL (IV) 500 NaCl .9 Patient arrived on IV Solutions in Left Antecubital via Peripheral IV. Pump/Drip Flow = 20 ml/hr usin g NaCl .9. Initial Case Assessment Cardiovascular HR Rhythm 65 sr Edema Present Skin color Skin None Normal Warm Dry Circulatory - Right Pulses Dorsalis Pedis Posterior Tibial Femoral d d 1 Scale (0,1,2,3,4,d) Circulatory - Left Pulses Dorsalis Pedis Posterior Tibial Femoral d d 1 Scale (0,1,2,3,4,d) Neurological State Oriented to time-place- Alert Moves all extremities person Respiration - General Respiration Rate SpO2 (%) O2 (lpm) (B/min) 18 98 0 Initial Case Assessment Cardiovascular HR Rhythm 59 sr Edema Present Skin color Skin None Normal Warm Dry Circulatory - Right Pulses Dorsalis Pedis Posterior Tibial Femoral d d 1 Scale (0,1,2,3,4,d) Circulatory - Left Pulses Dorsalis Pedis Posterior Tibial Femoral d d 1 Scale (0,1,2,3,4,d) Neurological State Oriented to time-place- Alert Moves all extremities person Respiration - General Respiration Rate SpO2 (%) O2 (lpm) (B/min) 18 98 0 Chronological Log Time Study Chronological Log 9:20:42 Patient arrived via Bed. 9:20:43 Patient Name, D.O.B, / Armband Verified By R.N. 9:20:44 Consent signed by the physician and the patient and verified by the Reel Cart Operator staff. 9:20:45 Pre-op and post- op instructions given; patient acknowledges understanding of instructions. 9:21:10 Verbal Stimulation=2 Physical Stimulation=2 Airway=2 Respiration=2 TOTAL=8. (0=absent, 1=li mited, 2=present) 9:21:31 Presedation assessment performed by Reel Cart Operator RN. Vitals capture started with the following parameters, Patient=Adult, Interval=5 min, Initial Pr mholfd=267 mmHg, 9:26:16 Deflation Rate=5 mmHg, Cuff placed on Right Ankle 9:26:58 HR=65 bpm, PRXU=989/64 mmhg, SpO2=97.0 %, Resp=20 B/min, Motley=2 9:27:40 Patient has been NPO for More than 6Hrs. 9:31:01 Skin Breakdown-Left lee contusion-not healing. 9:31:55 HR=60 bpm, CJNR=731/64 mmhg, SpO2=96.0 %, Resp=20 B/min, Motley=2 9:33:34 A # 20 IV was noted in the Antecubital (left). Grade = 0 9:34:33 Patient arrived on IV Solutions in Left Antecubital via Peripheral IV. Pump/Drip Flow = 20 ml/hr using NaCl .9. 9:34:56 Reference ECG taken 9:36:01 History and physical on the chart or being dictated. Assessment: Initial Case, HR=65 BPM, Rhythm=sr, Edema=None, Color=Normal, Skin = Warm, Dry Right Pulses: Josias Ped=d, Post Tib=d, Femoral=1 9:36:08 Left Pulses: Josias Ped=d, Post Tib=d, Femoral=1 Neurological: State=Alert, Ox3, ARIAS Respiration: Resp=18 B/min, SpO2=98 %, O2=0 lpm 9:37:24 Bilateral groins prepped with 2% chlorhexidine, and draped after a 3 minute waiting time. 9:37:33 HR=60 bpm, ERJU=651/65 mmhg, SpO2=98.0 %, Resp=27 B/min, Motley=2 9:38:33 Pressure channel 1 zeroed. 9:41:57 HR=60 bpm, YMTF=716/58 mmhg, SpO2=96.0 %, Resp=40 B/min, Motley=2 9:43:30 MD arrived. 9:44:56 2 mg VERSED given in lab by Mag Andrews, ASHER in Left Antecubital via Peripheral IV. Order ed by Shamar Llanos. 9:45:20 50 mcg FENTANYL given in lab by Mag Andrews, ASHER in Left Antecubital via Peripheral IV. O rdered by Shamar Llanos. 9:46:56 HR=63 bpm, YJLQ=583/56 mmhg, SpO2=90.0 %, Resp=18 B/min, Motley=2 Time Out. Correct patient, correct procedure, correct physician, power injector loaded with con trast with surgical team 9:50:27 present. Time Out Concurred by MD and individual staff in procedure. Loaded by Karina Andrews rn. ve rified by Terell Bravo. 9:50:59 Presedation re-assessment performed by Reel Cart Operator RN. 9:51:00 Case Start 9:51:03 Verbal Stimulation=2 Physical Stimulation=2 Airway=2 Respiration=2 TOTAL=8. (0=absent, 1=hernandez ited, 2=present) Patient arrived on 10 mL 1% XYLOCAINE given by Shamar Llanos in Right Groin via Subcutaneous. Ordered by Viet, 9:51:10 Shamar. 9:51:25 Access site was Right Femoral Artery. 9:51:30 A SHEATH, FR5 TERUMO (10CM) FR 5 was advanced into the Fem Art (right) using the Percutaneou s technique. 9:51:53 HR=56 bpm, BLNS=103/61 mmhg, SpO2=97.0 %, Resp=15 B/min, Motley=2 A RIM SUPER TORQUE CATHETER FR 5 was advanced over a wire. OMNIPAQUE, 300 MG, 150ML 150ML was u sed for 9:52:44 injections. 9:52:49 Wire removed 9:52:51 Manual injections down left leg through 5french omniflush catheter. 9:56:29 A WIRE, ANGLE GLIDE STIFF .035 260CM 260CM was inserted via Fem Art (right). 9:56:54 HR=55 bpm, QNTB=284/65 mmhg, SpO2=99.0 %, Resp=34 B/min, Motley=2 A SHEATH, FR6 PINNACLE DESTINATION 45CM FR 6 was exchanged in the Fem Art (right). This was nec essary in 9:57:17 order to accomodate a larger catheter. 9:58:15 5000 units HEPARIN given in lab by Mag Andrews, RN via Peripheral IV. Ordered by Shamar Llanos. A CATHETER, FR5 TRAILBLAZER .035 135CM was advanced over a wire. OMNIPAQUE, 300 MG, 150ML 150ML was 9:59:20 used for injections. 10:01:55 HR=56 bpm, QWLH=976/68 mmhg, SpO2=98.0 %, Resp=18 B/min, Motley=2 10:04:12 The previous wire was exchanged for a WIRE, GUIDE APPROACH HYDRO ST 300CM. 10:07:00 HR=57 bpm, DSMC=728/66 mmhg, SpO2=98.0 %, Resp=27 B/min, Motley=2 10:07:49 The previous wire was exchanged for a WIRE, FIRM (VIPER) 335. 10:08:40 Catheter was removed 10:12:01 HR=59 bpm, AEQF=323/70 mmhg, SpO2=95.0 %, Resp=20 B/min, Motley=2 10:13:41 An CATHETER, STEALTH CLASSIC 2.0MM catheter was inserted into the SFA (left). 10:14:01 2.0 [place] in use in Left SFA. 10:16:26 1 mg VERSED given in lab by Mag Andrews, RN in Left Antecubital via Peripheral IV. Orde red by Shamar Llanos. 10:16:37 50 mcg FENTANYL given in lab by Mag Andrews, RN in Left Antecubital via Peripheral IV. Ordered by Shamar Llanos. 10:17:15 Catheter was removed w/o difficulty A CATHETER, FR5 TRAILBLAZER .035 135CM was advanced over a wire. OMNIPAQUE, 300 MG, 150ML 150ML was 10:17:19 used for injections. 10:17:30 The previous wire was exchanged for a WIRE, ANGLE GLIDE STIFF .035 260CM 260CM. 10:17:37 HR=58 bpm, BOGA=491/67 mmhg, SpO2=99.0 %, Resp=14 B/min, Motley=2 10:17:56 Catheter was removed w/o difficulty A BALLOON, ADMIRAL IN.PACT 5 X 120 130CM 130CM was inserted over WIRE, ANGLE GLIDE STIFF .035 2 60CM 10:20:53 260CM via the SFA (left). 10:22:01 HR=58 bpm, YMFE=552/64 mmhg, SpO2=99.0 %, Resp=15 B/min, Motley=2 10:23:28 In the SFA (left) a BALLOON, ADMIRAL IN.PACT 5 X 120 130CM 130CM was inflated to 8 atms for 180 seconds. 10:24:31 1st DCB Balloon Removed. A BALLOON, ADMIRAL IN.PACT 5 X 120 130CM 130CM was inserted over WIRE, ANGLE GLIDE STIFF .035 2 60CM 10:24:47 260CM via the SFA (left). 10:25:50 In the SFA (left) a BALLOON, ADMIRAL IN.PACT 5 X 120 130CM 130CM was inflated to 8 atms for 180 seconds. 10:27:04 HR=62 bpm, AVRO=041/68 mmhg, SpO2=94.0 %, Resp=18 B/min, Motley=2 10:30:32 Balloon Removed. A SHEATH, FR6 TERUMO (10CM) FR 6 was exchanged in the Fem Art (right). This was necessary in or wisam to achieve 10:31:00 vascular hemostasis. 10:31:20 Wire removed 10::33 Case End 10:31:44 In the Fem Art (right) the SHEATH, FR6 TERUMO (10CM) FR [address] by Terell Bravo, RT(R). 10:32:03 HR=62 bpm, DIPL=494/65 mmhg, SpO2=96.0 %, Resp=12 B/min Assessment: Initial Case, HR=59 BPM, Rhythm=sr, Edema=None, Color=Normal, Skin = Warm, Dry Right Pulses: Josias Ped=d, Post Tib=d, Femoral=1 10:33:03 Left Pulses: Josias Ped=d, Post Tib=d, Femoral=1 Neurological: State=Alert, Ox3, ARIAS Respiration: Resp=18 B/min, SpO2=98 %, O2=0 lpm 10:33:09 Catheter(s) removed without difficulty 10:33:16 Sterile dressing applied to site 10:33:17 No case complications noted. 10:33:17 Cine recording checked. 10:33:18 Holding Area notified of successful intervention. 10:33:19 Bedside Report will be given. 10:37:00 HR=60 bpm, YLKI=873/59 mmhg, SpO2=99.0 %, Resp=14 B/min 10:42:01 GMNZ=907/73 mmhg, SpO2=98.0 % 10:45:29 Patient moved to stretcher 10:45:31 Vitals capture stopped. End Study - Contrast Media Used In Study Contrast Total Opened (mL) Total Used (mL) Total Wasted (mL) Omnipaque 120 120 0 End Study - Maximum Contrast Load Max Contrast Load (mL) 428.1 End Study - Radiation Exposure Fluoro Time (minutes) 11.4 End Study - Patient Disposition Complications Transferred To Interventional Outcome No Reel Cart Operator Holding successful
[2018-01-04] MEDS ORDERED: CLOPIDOGREL 75 MG TAB ONE (10:58)
[2018-01-04] MEDS ORDERED: ASPIRIN 81 MG CHEW TAB ONE (10:58)
[2018-01-04] MEDS ORDERED: LIDOCAINE HCL 1% 50 ML VIAL INFIL PRN (11:15)
[2018-01-04] MEDS ORDERED: BACITRACIN OINT 0.9 GM PKT TOP ONE (11:15)
[2018-01-04] MEDS ORDERED: ONDANSETRON HCL 4 MG/2 ML VIAL IV PUSH PRN (11:15)
[2018-01-04] MEDS ORDERED: LORazepam 2 MG/ML VIAL IV PUSH PRN (11:15)
[2018-01-04] MEDS ORDERED: MISC INFORMATION XX ONE (11:15)
[2018-01-04] MEDS ORDERED: SODIUM CHLOR 0.9% 250 ML INJ 250 ML IV PRN (11:15)
[2018-01-04] MEDS ORDERED: METOCLOPRAMIDE HCL 10 MG/2 ML VIAL IV PUSH PRN (11:15)
[2018-01-04] MEDS ORDERED: ATROPINE SULFATE 1 MG/ML VIAL IV PUSH PRN (11:15)
--- NOTE | 2018-01-04 11:44 | MA ---
cc: Shamar Llanos MD DATE: 01/04/2018 PROCEDURES PERFORMED: 1. Fluoroscopy with interpretation. 2. Left lower extremity peripheral angiography for second and third order visualization and interpretation. 3. Percutaneous transluminal angioplasty of left superficial femoral artery. 4. Rotational atherectomy left superficial femoral artery. METHOD: The risks, benefits and alternatives were discussed with the patient. The patient understood and consented to the procedure. The patient was brought into the cardiac catheterization lab, placed on the catheterization table. The right groin was prepped and draped in sterile fashion. The right groin was anesthetized with 2% lidocaine. The right common femoral artery was cannulated and a 5-Polish, 11-cm sheath was placed without difficulty. LEFT LOWER EXTREMITY PERIPHERAL ANGIOGRAPHY: 1. Left common iliac artery stents widely patent. 2. Left external iliac has mild to moderate disease estimated about 30-40% eccentric stenosis. 3. Internal iliac artery is patent. 4. The left common femoral artery has been mild luminal irregularities. 5. The left profunda is widely patent. 6. Left superficial coronary has diffuse 80% stenosis throughout. The popliteal artery is widely patent. There is 3-vessel infrapopliteal runoff with mild to moderate diffuse disease. PERCUTANEOUS INTERVENTION: A 6-Polish, 45-cm [employer] Potlatch sheath was advanced up and over the arch. A [place] ST wire was navigated down the distal peroneal and exchanged through a TrailBlazer catheter for a Viper wire. A 2.0 mm CSI atherectomy catheter was then prepped and advanced through the sheath, orbital rotational atherectomy performed on two sequential passes in the left superficial femoral artery. A 5.0 x 120 mm Medtronic drug-coated balloon was then deployed in the mid to distal, followed by 5.0 x 120 mm Medtronic balloon to the proximal mid. Repeat angiography showed no residual stenosis, BLANCO 3 flow. The sheath was removed, a 6-Polish sheath sewn into place to be removed after manual hemostasis. CONCLUSIONS: 1. Severe left superficial femoral artery stenosis. 2. Successful orbital rotational atherectomy and balloon angioplasty of left superficial followed by drug-coated balloon. PLAN: Hopefully this will translate well to symptomatic improvement. She can followup in the office. No future planned interventions, but hopefully her left pretibial nonhealing lesion will improve. MD DIOGO Aguilar/RAEANN , 11:14 AM , 11:43 AM
== END 2018-01-04 19:16 | disposition home or self-care (01) ==
LOC: HDOC 06:30 → HDIC 06:31 → HDOC 19:16
PROVIDERS: ATTEND Internal Medicine
DX: I70.202 Unspecified atherosclerosis of native arteries of extremities, left leg (principal); I25.10 Atherosclerotic heart disease of native coronary artery without angina pectoris; I70.0 Atherosclerosis of aorta; I35.1 Nonrheumatic aortic (valve) insufficiency; J44.9 Chronic obstructive pulmonary disease, unspecified; E11.9 Type 2 diabetes mellitus without complications; Z79.4 Long term (current) use of insulin; Z79.82 Long term (current) use of aspirin
CPT/HCPCS: 37225; 75710; 85002; 85347; 86850; 86900; 86901; 99152; 99153; C1714; C1751; C1769; C1893; C2623; J1644; J2250; J3010; Q9967

== ENCOUNTER 2018-04-02 21:24 | Inpatient (IN) ==
[2018-04-03] MEDS ORDERED: Sod Chloride 0.9% Inj 1,000 ML IV.CONT SCH (01:30)
[2018-04-03] MEDS ORDERED: Morphine Inj 4 MG/ML Vial IV.PUSH ONE (01:30)
--- NOTE | 2018-04-03 01:36 | ED ---
HPI General Chief Complaint: Abdominal Pain Stated Complaint: Abd Pain/Bloated/Nausea/Vomiting Time Seen by Provider: 04/03/18 01:25 History of Present Illness HPI narrative: 72-year-old female presents to the emergency department for complaint of 8/10 abdominal pain and abdominal distention with nausea and vomiting. Patient has history of multiple abdominal surgeries with previous small bowel obstruction. Patient states she did not feel well on was seen in the [facility] hours of Sunday diagnosed with food poisoning. Patient had nausea vomiting abdominal discomfort at that time no diarrhea or mucoid stool or bloody stool. Patient thought that she had eaten bad turkey on . Patient was given prescription for nausea vomiting medication and vomiting decreased but persistent nausea and increasing abdominal distention was noted. Patient has been able to pass some flatus but no bowel movement. Patient also has history of cardiac disease and is noted some subxiphoid pressure that she feels is related to gaseous distention but is concerned it may be heart related. Patient did have myocardial infarction one year ago. Patient has no chest discomfort or subxiphoid discomfort or pressure at this time. Patient's had no sweats or shortness of breath. Patient's had no hematemesis coffee-ground emesis or feculent emesis. Patient has not had any recent surgeries but has undergone hysterectomy exploratory laparotomy and adhesiolysis in the past. Patient's had no dysuria frequency urgency flank pain or hematuria. Related Data Home Medications Medication Instructions Recorded Confirmed albuterol sulfate [Ventolin HFA] 2 puff INHALATION Q4-6H PRN 03/29/18 04/03/18 amlodipine [Norvasc] 2.5 mg PO DAILY 03/29/18 04/03/18 aspirin 81 mg PO DAILY 03/29/18 04/03/18 cholecalciferol (vitamin D3) 2,000 unit PO DAILY 03/29/18 04/03/18 [Vitamin D3] clonazepam 0.25 mg PO DAILY 03/29/18 04/03/18 clopidogrel [Plavix] 75 mg PO DAILY 03/29/18 04/03/18 folic acid 1 mg PO DAILY 03/29/18 04/03/18 gabapentin 300 mg PO BID 03/29/18 04/03/18 insulin NPH isoph U-100 human 25 unit SUB-Q BID 03/29/18 04/03/18 [Novolin N NPH U-100 Insulin] isosorbide mononitrate 60 mg PO DAILY 03/29/18 04/03/18 methotrexate (PF) 17.5 mg SUB-Q QWEEK 03/29/18 04/03/18 metoprolol tartrate 50 mg PO BID 03/29/18 04/03/18 nitroglycerin 0.4 mg SUBLINGUAL Q5-15M PRN 03/29/18 04/03/18 omega-3 acid ethyl esters [Lovaza] 2 cap PO BID 03/29/18 04/03/18 cholecalciferol (vitamin D3) 2,000 unit PO DAILY 04/03/18 04/03/18 [Vitamin D3] Allergies Allergy/AdvReac Type Severity Reaction Status Date / Time azithromycin Allergy Severe Rash Verified 04/03/18 01:22 budesonide Allergy Severe NAUSEA, Verified 04/03/18 01:22 PANIC ATTACKS ciprofloxacin Allergy Severe "CAN'T Verified 04/03/18 01:22 REMEMBER" erythromycin base Allergy Severe Rash Verified 04/03/18 01:22 etanercept [From Enbrel] Allergy Severe Rash Verified 04/03/18 01:22 leflunomide Allergy Severe Rash Verified 04/03/18 01:22 montelukast Allergy Severe NAUSEA Verified 04/03/18 01:22 Sulfa (Sulfonamide Allergy Severe Rash Verified 04/03/18 01:22 Antibiotics) amlodipine Allergy Unknown MUSCLE Verified 04/03/18 01:22 ACHES atorvastatin Allergy Unknown MUSCLE Verified 04/03/18 01:22 ACHES choline fenofibrate Allergy Unknown "CANNOT Verified 04/03/18 01:22 REMEMBER" cyclobenzaprine Allergy Unknown "CANNOT Verified 04/03/18 01:22 REMEMBER" pravastatin Allergy Unknown MUSCLE Verified 04/03/18 01:22 ACHES simvastatin Allergy Unknown MUSCLE Verified 04/03/18 01:22 ACHES niacin AdvReac Severe Cramping Verified 04/03/18 01:22 infliximab AdvReac Unknown Nausea/Vomi Verified 04/03/18 01:22 ting infliximab-dyyb AdvReac Unknown Nausea/Vomi Verified 04/03/18 01:22 ting Review of Systems Except as stated in HPI: all other systems reviewed are negative COUNT INCLUDES [facility] Medical History Medical History Anxiety (Acute) Zheng's cyst of knee (Acute) Bowel disease (Acute) COPD (chronic obstructive pulmonary disease) (Acute) Cataract (lens) fragments in eye following cataract surgery, bilateral (Acute) Coronary artery disease (Acute) Depression (Acute) Diabetes (Acute) FHx: total knee replacement (Acute) Fibromyalgia (Acute) H/O: hysterectomy (Acute) Heart attack (Acute) Hypertension (Acute) Neuropathy (Acute) Osteoarthritis (Acute) Psoriatic arthritis (Acute) Rotator cuff impingement syndrome of left shoulder (Acute) Skin cancer (Acute) Surgical History Surgical History H/O arthroscopic knee surgery (Acute) H/O exploratory laparotomy (Acute) H/O heart bypass surgery (Acute) History of coronary artery stent placement (Acute) Social History Social History Substance History: No History of Abuse Second Hand Smoke Exposure: No Smoking Status: Never smoker How Often Do You Have a Drink Containing Alcohol: Never Recent Travel in [facility] within the Last 8 Weeks: No Recent Out of Country Travel within the Last 8 Weeks: No Immunization History Tetanus Immunization: Unsure Hx Influenza Vaccine This Season: No Exam Narrative Exam Narrative: GENERAL: Well-nourished, well-developed patient. No acute distress no respiratory distress SKIN: Focused skin assessment warm/dry. HEAD: Normocephalic. EYES: No scleral icterus. No injection or drainage. NECK: Supple, trachea midline. No JVD or lymphadenopathy. CARDIOVASCULAR: Regular rate and rhythm without murmurs, gallops, or rubs. RESPIRATORY: Breath sounds equal bilaterally. No accessory muscle use. GASTROINTESTINAL: Abdomen soft, bilateral lower quadrant tenderness to palpation , nontensedistended. MUSCULOSKELETAL: No cyanosis, or edema. BACK: Nontender without obvious deformity. No CVA tenderness. Course Consultations Consultation #1: Call placed to [facility] --discussed with Dr. Cates requested admission to Dr. Berg Time: 04:49 Initial Documented Vital Signs Temperature 98.4 F 04/02/18 22:10 Pulse Rate 72 04/02/18 22:10 Respiratory Rate 16 04/02/18 22:10 Blood Pressure 179/75 H 04/02/18 22:10 Pulse Oximetry 96 04/02/18 22:10 Last Documented Vital Signs Temperature 98.4 F 04/02/18 22:10 Pulse Rate 80 04/03/18 03:37 Respiratory Rate 16 04/03/18 03:37 Blood Pressure 160/70 H 04/03/18 03:37 Pulse Oximetry 98 04/03/18 03:37 Medical Decision Making MDM Narrative Medical decision making narrative: 72-year-old female presents with nausea abdominal distention with recent diagnosis of food poisoning but ongoing nausea and abdominal distention has worsened presents now for further evaluation with history of small bowel obstruction. IV access obtained patient placed on panel monitor with continuous pulse oximetry EKG and troponin I ordered along with. Patient administered morphine sulfate 2 mg IV Reglan 5 mg IV and maintenance IV fluids at 1 25 cc/h CBC with automated differential values grossly normal range metabolic panel grossly within normal limits troponin I less than 0.02 EKG is sinus rhythm with no acute ST elevation or injury pattern CT abdomen pelvis identifies partial small bowel obstruction per reading radiologist; call placed to medicine service discussed with Dr. Cates who request patient to be admitted to Dr. Berg patient kept n.p.o. continues to receive maintenance IV fluids Patient and family informed of imaging results and plan for admission Differential Diagnosis Differential Diagnosis: Abdominal pain, bowel obstruction, ascites, Medical Records Medical records reviewed: Yes I reviewed the patient's medical records. Lab Data Lab results reviewed: Yes I reviewed the patient's lab results. Result diagrams: 04/03/18 02:07 04/03/18 02:07 Lab Results 04/03/18 04/03/18 Range/Units 02:07 02:07 WBC 7.0 (4.0-11.0) th/mm3 RBC 4.70 (4.00-5.30) mil/mm3 Hgb 13.5 (11.6-15.3) gm/dL Hct 40.6 (35.0-46.0) % MCV 86.5 (80.0-100.0) fL MCH 28.7 (27.0-34.0) pg MCHC 33.2 (32.0-36.0) % RDW 17.5 H (11.6-17.2) % Plt Count 202 (150-450) th/mm3 MPV 9.2 (7.0-11.0) fL Neut % (Auto) 61.6 (16.0-70.0) % Lymph % (Auto) 27.3 (9.0-44.0) % Swain % (Auto) 8.4 H (0.0-8.0) % Eos % (Auto) 2.1 (0.0-4.0) % Baso % (Auto) 0.6 (0.0-2.0) % Neut # (Auto) 4.3 (1.8-7.7) th/mm3 Lymph # (Auto) 1.9 (1.0-4.8) th/mm3 Swain # (Auto) 0.6 (0.0-0.9) th/mm3 Eos # (Auto) 0.1 (0.0-0.4) th/mm3 Baso # (Auto) 0.0 (0.0-0.2) th/mm3 WBC Differential . Differential Comment Auto diff final Sodium 138 (136-145) meq/L Potassium 3.7 (3.5-5.1) meq/L Chloride 101 (98-107) meq/L Carbon Dioxide 26.4 (21.0-32.0) meq/L Anion Gap 11 (5-15) meq/L BUN 18 (7-18) mg/dL Creatinine 0.75 (0.50-1.00) mg/dL Estimated GFR 76 L (>89) mL/min Random Glucose 136 H (74-106) mg/dL Calcium 9.3 (8.5-10.1) mg/dL Total Bilirubin 1.1 H (0.2-1.0) mg/dL AST 20 (15-37) U/L ALT 16 (10-53) U/L Alkaline Phosphatase 63 (45-117) U/L Troponin I Less than 0.02 L (0.02-0.05) ng/mL Total Protein 7.7 (6.4-8.2) g/dL Albumin 3.7 (3.4-5.0) g/dL Lipase 123 (73-393) U/L Imaging Data Radiologist's impression: Abdomen/Pelvis CT 04/03/18 01:30 CONCLUSION: 1. There is some air and fluid distention of small bowel loops predominantly in the left side of the abdomen with an apparent transition somewhere near the terminal ileum. Findings are concerning for at least a partial small bowel obstruction. 2. Cortical scarring in the right kidney. 3. Some fluid distention of the urinary bladder. Chest X-Ray 04/03/18 01:30 CONCLUSION: 1. Minimal linear atelectasis or scarring above the left hemidiaphragm. 2. Lungs are otherwise clear. Heart size is normal. ECG Data EKG Prior to Arrival: No Attestation: I personally reviewed and interpreted this ECG as follows: Interpretation: EKG sinus bradycardia rate 58 incomplete right bundle branch block left ventricular hypertrophy by voltage criterion no acute ST elevation or injury pattern Discharge Plan Discharge Disposition Patient Disposition: 30 Still Patient Discharge Condition Condition: Stable Discharge Details Diagnosis: Partial small bowel obstruction Physicians Team ED Provider: Deepa Mitchell Primary Care Provider: Jesus Hoskins Rxs /Orders / Referrals /Forms Prescriptions: No Action amlodipine [Norvasc] 2.5 mg Tablet 2.5 mg PO DAILY RF: 0 clopidogrel [Plavix] 75 mg Tablet 75 mg PO DAILY RF: 0 aspirin 81 mg Tablet,Delayed Release (Dr/Ec) 81 mg PO DAILY RF: 0 isosorbide mononitrate 60 mg Tablet Extended Release 24 Hr 60 mg PO DAILY RF: 0 metoprolol tartrate 50 mg Tablet 50 mg PO BID RF: 0 nitroglycerin 0.4 mg Tablet, Sublingual 0.4 mg SUBLINGUAL Q5-15M PRN (Reason: Chest Pain) RF: 0 gabapentin 300 mg Capsule 300 mg PO BID RF: 0 folic acid 1 mg Tablet 1 mg PO DAILY RF: 0 albuterol sulfate [Ventolin HFA] 90 mcg/actuation Hfa Aerosol Inhaler 2 puff INHALATION Q4-6H PRN (Reason: Shortness Of Breath) RF: 0 clonazepam 0.25 mg Tablet,Disintegrating 0.25 mg PO DAILY RF: 0 omega-3 acid ethyl esters [Lovaza] 1 gram Capsule 2 cap PO BID RF: 0 cholecalciferol (vitamin D3) [Vitamin D3] 2,000 unit Capsule 2,000 unit PO DAILY RF: 0 methotrexate (PF) 17.5 mg/0.35 mL Auto-Injector 17.5 mg SUB-Q QWEEK RF: 0 insulin NPH isoph U-100 human [Novolin N NPH U-100 Insulin] 100 unit/mL Suspension 25 unit SUB-Q BID RF: 0 cholecalciferol (vitamin D3) [Vitamin D3] 2,000 unit Capsule 2,000 unit PO DAILY RF: 0 Discharge Interventions Interventions: Vital Signs Last Done: 04/03/18 03:37 Status ED Status: With Doctor
--- NOTE | 2018-04-03 02:12 | XR ---
EXAM DATE: 04/03/2018 1:45 AM EDT AGE/SEX: 72 years / Female INDICATIONS: Abdominal distention, lower chest and upper abdominal pain, nausea, and vomiting. CLINICAL DATA: This is the patient's initial encounter. Patient reports that signs and symptoms have been present for 1 week and indicates a pain score of 6/10. MEDICAL/SURGICAL HISTORY: Diabetes mellitus type II. Hypertension. Chronic obstructive pulmon elder disease. CABG. 2 cardiac stents. COMPARISON: . FINDINGS: A single AP view of the chest demonstrates the lungs to be symmetrically with some atelectatic change s above the left hemidiaphragm. The cardiomediastinal contours are unremarkable. Osseous structures are intact. Median sternotomy wires are intact. CONCLUSION: 1. Minimal linear atelectasis or scarring above the left hemidiaphragm. 2. Lungs are otherwise clear. Heart size is normal. Electronically signed by: Daryl Soriano MD 04/03/2018 2:10 AM EDT
[2018-04-03 02:28] LABS: Baso % (Auto) 0.6 % (0.0-2.0); Eos # (Auto) 0.1 th/mm3 (0.0-0.4); Eos % (Auto) 2.1 % (0.0-4.0); Hematocrit 40.6 % (35.0-46.0); Hemoglobin 13.5 gm/dL (11.6-15.3); Lymph # (Auto) 1.9 th/mm3 (1.0-4.8); Lymph % (Auto) 27.3 % (9.0-44.0); Mean Corpuscular HGB Conc 33.2 % (32.0-36.0); Mean Corpuscular Hemoglobin 28.7 pg (27.0-34.0); Mean Corpuscular Volume 86.5 fL (80.0-100.0); Mean Platelet Volume 9.2 fL (7.0-11.0); Mono # (Auto) 0.6 th/mm3 (0.0-0.9); Mono % (Auto) 8.4 % (0.0-8.0); Neut # (Auto) 4.3 th/mm3 (1.8-7.7); Neut % (Auto) 61.6 % (16.0-70.0); Platelet Count 202 th/mm3 (150-450); Red Cell Distribution Width 17.5 % (11.6-17.2)
[2018-04-03 02:49] LABS: Alkaline Phosphatase 63 U/L (45-117); Total Protein 7.7 g/dL (6.4-8.2)
[2018-04-03 02:58] LABS: Alanine Aminotransferase 16 U/L (10-53); Albumin 3.7 g/dL (3.4-5.0); Anion Gap 11 meq/L (5-15); Aspartate Aminotransferase 20 U/L (15-37); Blood Urea Nitrogen 18 mg/dL (7-18); Calcium 9.3 mg/dL (8.5-10.1); Carbon Dioxide 26.4 meq/L (21.0-32.0); Chloride 101 meq/L (98-107); Glomerular Filtration Rate 76 mL/min (>89); Glucose,Random 136 mg/dL (74-106); Lipase 123 U/L (73-393); Potassium 3.7 meq/L (3.5-5.1); Sodium 138 meq/L (136-145)
--- NOTE | 2018-04-03 04:16 | CT ---
EXAM DATE: 04/03/2018 3:58 AM EDT AGE/SEX: 72 years / Female INDICATIONS: Abdominal pain, distention and constipation. CLINICAL DATA: This is the patient's initial encounter. Patient reports that signs and symptoms have been present for 1 week and indicates a pain score of 6/10. MEDICAL/SURGICAL HISTORY: Chronic obstructive pulmonary disease. Hypertension. Diabetes. CAD . Hysterectomy. CABG. ORAL CONTRAST: No oral contrast ingested. RADIATION DOSE: 7.04 CTDI (mGy) COMPARISON: [facility] [place], CT ABDOMEN & PELVIS W CONTRAST, 05/02/2015. . TECHNIQUE: Multiple contiguous axial images were obtained through the abdomen and pelvis following b olus infusion of 70 ml Omnipaque 350 (iohexol) nonionic water-soluble contrast as a single exam dos e. No oral contrast ingested. Using automated exposure control and adjustment of the mA and/or kV ac cording to patient size, radiation dose was kept as low as reasonably achievable to obtain optimal di agnostic quality images. DICOM format image data is available electronically for review and comparis on. FINDINGS: Lower Lungs: Mild dependent atelectatic changes Liver: The liver has a homogeneous density without space-occupying lesion. There is no dilation of th e biliary tree. Spleen: Homogeneous density without enlargement. Pancreas: Unremarkable without mass or calcification. Kidneys: Cortical scarring in the right kidney. Left kidney is radiographically normal Adrenal Glands: Unremarkable. Aorta: The aorta and proximal iliac vessels are grossly unremarkable without aneurysmal dilation. Bowel/Mesentery: There is some fluid and air distention of small bowel loops predominantly in the le ft side of the abdomen with an apparent transition near the terminal ileum. The colon is completely d ecompressed. Abdominal Wall: Intact. Retroperitoneum: No evidence of adenopathy in the retrocrural, para-aortic, or deep pelvic regions. Bladder: Distention of the urinary bladder Reproductive Organs: Patient appears to be status post hysterectomy Inguinal: The inguinal region is unremarkable without evidence of adenopathy. Bony Structures: Unremarkable. Post Contrast: No abnormal areas of enhancement seen. CONCLUSION: 1. There is some air and fluid distention of small bowel loops predominantly in the left side of the abdomen with an apparent transition somewhere near the terminal ileum. Findings are concerning for a t least a partial small bowel obstruction. 2. Cortical scarring in the right kidney. 3. Some fluid distention of the urinary bladder. Electronically signed by: Daryl Soriano MD 04/03/2018 4:14 AM EDT
[2018-04-03 05:55] LABS: Bilirubin,Urine Negative (Negative); Clarity,Urine Hazy (Clear); Color,Urine Yellow (Yellw/Straw); Glucose,Urine (UA) Negative (Negative); Leukocyte Esterase,Urine Large (Negative); Mucus,Urine Few /lpf (Occasional); Nitrite,Urine Negative (Negative); Specific Gravity,Urine 1.031 (1.002-1.035); Squamous Epithelial Cell,Urine 3 /hpf (0-5); Transitional Epi Cells,Urine 2 /hpf
--- NOTE | 2018-04-03 08:08 | P.HPIM ---
History of Present Illness Primary Care Physician: Jesus Hoskins Chief Complaint: Abdominal pain History of Present Illness: Ms. 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 She presented to the ED at [facility] on 04/02/18 with complaints of abdominal pain and distension. She reports that 6 days ago after eating dinner out she developed severe N/V which persisted through the night and she went to the ED at [facility] on 03/29/18 and received IVF hydration and antiemetics and was discharged with a prescription for Reglan. Pt reports that after going home she wasn't eating much or drinking much but was taking her medications. She did not have any further N/V but reported that her abdomen started becoming more distended and bloated feeling. She has not had a BM since 03/28/18 which was normal. Her increasing abd distension and cramping prompted her to come to the ED for further evaluation. In the ED pt underwent evaluation with CT Abd/pelvis (04/02/18) which noted some air and fluid distention of small bowel loops predominantly in the left side of the abdomen with an apparent transition somewhere near the terminal ileum, concerning for at least a partial small bowel obstruction, cortical scarring in the right kidney, and some fluid distention of the urinary bladder. Pt was given IVF in the ED and is currently NPO. She denies any further N/V. She is passing some flatus. No fevers, chills, chest pain, SOB or palpitations. 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 - Trace mitral valve regurgitation - Moderate tricuspid regurgitation - Estimated pulmonary arterial pressure is 43.9 mmHg. Past Surgical History Left lower extremity peripheral angiography with percutaneous transluminal angioplasty of left superficial femoral artery and rotational atherectomy left superficial femoral artery on 01/04/[address] Llanos Peripheral angiography with bilateral common iliac artery atherectomy and percutaneous endovascular stenting with balloon expandable stents in bilateral common iliac arteries on 12/06/[address] Llanos Left total knee arthroplasty on 09/11/[address] Whitman [facility] on 05/19/[address] 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 Excision of Bakers cyst, left knee Exploratory laparotomy with PABLITO in 1984 for SBO NATALIE with BSO Rotator cuff repair Reported Medications -Methotrexate 2.5 Mg/1 Ml Inj 7 Mg WEEKLY -Isosorbide Mononitrate ER 60 Mg PO DAILY -Novolin N Inj 25 Units SQ BID -Lovaza ([id number] Ethyl Esters) 2 Gm PO BID -Nitrostat SL (Nitroglycerin) 0.4 Mg Subl 0.4 Mg SL DIRECTED PRN -Metoprolol Tartrate 50 Mg PO BID -Gabapentin 300 Mg PO QID -Folic Acid 1 Mg PO DAILY -Plavix 75 Mg PO DAILY -Klonopin 0.25 Mg PO HS PRN -Vitamin D 2,000 Units PO EVERY OTHER DAY -Aspirin 81 Mg CHEW DAILY -Norvasc 2.5 Mg PO DAILY -Ventolin Hfa 18 GM Inh 90 Mcg/Act Aer 2 Puff INH Q4-6H PRN Family History Mother with hx of stomach cancer Brother with hx of liver cirrhosis Social History Hx of tobacco use, quit in 1994 Denies any regular alcohol use Denies any illicit drug use Pt lives locally with her - Diagnosis (1) Partial small bowel obstruction (2) HTN (hypertension) (3) Hyperlipidemia (4) GERD (gastroesophageal reflux disease) (5) Diabetes (6) PAD (peripheral artery disease) (7) CAD (coronary artery disease) Inpatient Certification: I certify that the inpatient services were ordered in accordance with Medicare regulations governing the order. This includes certification that hospital inpatient services are reasonable and necessary and in the case of services not specified as inpatient-only under 42 CFR 419.22(n), that they are appropriately provided as inpatient services in accordance to with the 2-midnight benchmark under 43 CFR 412.3(e) [facility] - History History Provided By: Patient - Medical History Medical History: Medical History (Last Reviewed 04/04/18 @ 08:47 by Trevor Kwok) Anxiety Zheng's cyst of knee Bowel disease COPD (chronic obstructive pulmonary disease) Cataract (lens) fragments in eye following cataract surgery, bilateral Coronary artery disease Depression Diabetes FHx: total knee replacement Fibromyalgia H/O: hysterectomy Heart attack Hypertension Neuropathy Osteoarthritis Psoriatic arthritis Rotator cuff impingement syndrome of left shoulder Skin cancer - Surgical History Surgical History: Surgical History (Last Reviewed 04/04/18 @ 08:47 by Trevor Kwok) H/O arthroscopic knee surgery H/O exploratory laparotomy H/O heart bypass surgery History of coronary artery stent placement - Tobacco History Second Hand Smoke Exposure: No Tobacco Use In Past 30 Days: No Smoking Status: Never smoker - Alcohol History How Often Do You Have a Drink Containing Alcohol: Never - Substance Use History Substance History: No History of Abuse - Travel History Recent Travel in the [place] Within the Last 8 Weeks: No Recent Travel Out of the Country Within the Last 8 Weeks: No - Immunization History Tetanus Immunization: Unsure Hx Influenza Vaccine This Season: No Medications and Allergies Allergies Allergy/AdvReac Type Severity Reaction Status Date / Time azithromycin Allergy Severe Rash Verified 04/03/18 01:22 budesonide Allergy Severe NAUSEA, Verified 04/03/18 01:22 PANIC ATTACKS ciprofloxacin Allergy Severe "CAN'T Verified 04/03/18 01:22 REMEMBER" erythromycin base Allergy Severe Rash Verified 04/03/18 01:22 etanercept [From Enbrel] Allergy Severe Rash Verified 04/03/18 01:22 leflunomide Allergy Severe Rash Verified 04/03/18 01:22 montelukast Allergy Severe NAUSEA Verified 04/03/18 01:22 Sulfa (Sulfonamide Allergy Severe Rash Verified 04/03/18 01:22 Antibiotics) amlodipine Allergy Unknown MUSCLE Verified 04/03/18 01:22 ACHES atorvastatin Allergy Unknown MUSCLE Verified 04/03/18 01:22 ACHES choline fenofibrate Allergy Unknown "CANNOT Verified 04/03/18 01:22 REMEMBER" cyclobenzaprine Allergy Unknown "CANNOT Verified 04/03/18 01:22 REMEMBER" pravastatin Allergy Unknown MUSCLE Verified 04/03/18 01:22 ACHES simvastatin Allergy Unknown MUSCLE Verified 04/03/18 01:22 ACHES niacin AdvReac Severe Cramping Verified 04/03/18 01:22 infliximab AdvReac Unknown Nausea/Vomi Verified 04/03/18 01:22 ting infliximab-dyyb AdvReac Unknown Nausea/Vomi Verified 04/03/18 01:22 ting Home Medications Medication Instructions Recorded Confirmed Type albuterol sulfate [Ventolin HFA] 2 puff INHALATION Q4-6H PRN 03/29/18 04/03/18 History aspirin 81 mg PO DAILY 03/29/18 04/03/18 History cholecalciferol (vitamin D3) 2,000 unit PO DAILY 03/29/18 04/03/18 History [Vitamin D3] clonazepam 0.25 mg PO HS PRN 03/29/18 04/03/18 History clopidogrel [Plavix] 75 mg PO DAILY 03/29/18 04/03/18 History folic acid 1 mg PO DAILY 03/29/18 04/03/18 History gabapentin 300 mg PO QID 03/29/18 04/03/18 History insulin NPH isoph U-100 human 25 unit SUB-Q BID 03/29/18 04/03/18 History [Novolin N NPH U-100 Insulin] isosorbide mononitrate 60 mg PO DAILY 03/29/18 04/03/18 History methotrexate (PF) 17.5 mg SUB-Q QWEEK 03/29/18 04/03/18 History nitroglycerin 0.4 mg SUBLINGUAL Q5-15M PRN 03/29/18 04/03/18 History omega-3 acid ethyl esters [Lovaza] 2 cap PO BID 03/29/18 04/03/18 History cholecalciferol (vitamin D3) 2,000 unit PO DAILY 04/03/18 04/03/18 History [Vitamin D3] Active Medications: Active Medications Sodium Chloride (Ns Inj) 1,000 mls @ 125 mls/hr IV.CONT .Q8H EDWARDO Stop: 04/03/18 09:29 Last Admin: 04/03/18 02:06 Dose: 125 mls/hr Sodium Chloride (Ns Flush) 2 ml IV.FLUSH PRN PRN PRN Reason: FLUSH AFTER USING IV ACCESS Exam Vital signs: Vital Signs 04/02/18 22:10 04/03/18 03:37 04/03/18 06:43 Temperature 98.4 F Pulse Rate 72 80 78 Respiratory Rate 16 16 16 Blood Pressure 179/75 H 160/70 H 210/75 H Pulse Oximetry 96 98 98 Intake & Output 04/02/18 04/03/18 04/03/18 18:59 06:59 18:59 Weight 68.039 kg Narrative: GENERAL: NAD, AAOx3 SKIN: Warm and dry. HEENT: Atraumatic. Normocephalic. Pupils equal and round. No scleral icterus. No injection or drainage. No nasal bleeding or discharge. Mucous membranes pink and moist. NECK: Trachea midline. No JVD. CARDIO: Regular RESP: Clear to auscultation. Breath sounds equal bilaterally. ABD: +BS, soft, mildly distended, left sided tenderness. NO rebound EXT: Extremities without clubbing, cyanosis, or edema. NEURO: Awake and alert. No obvious cranial nerve deficits. Motor grossly within normal limits. Five out of 5 muscle strength in the arms and legs. Normal speech. PSYCHIATRIC: Appropriate mood and affect; insight and judgment normal. Results - Labs CBC & Chem 7: 04/04/18 06:29 04/04/18 06:29 Labs: Short CBC 04/03/18 Range/Units 02:07 WBC 7.0 (4.0-11.0) th/mm3 Hgb 13.5 (11.6-15.3) gm/dL Hct 40.6 (35.0-46.0) % Plt Count 202 (150-450) th/mm3 BMP 04/03/18 02:07 Sodium 138 Potassium 3.7 Chloride 101 Carbon Dioxide 26.4 BUN 18 Creatinine 0.75 Calcium 9.3 Cardiac Enzymes 04/03/18 Range/Units 02:07 Troponin I Less than 0.02 L (0.02-0.05) ng/mL Liver Function 04/03/18 Range/Units 02:07 Total Bilirubin 1.1 H (0.2-1.0) mg/dL AST 20 (15-37) U/L ALT 16 (10-53) U/L Alkaline Phosphatase 63 (45-117) U/L Albumin 3.7 (3.4-5.0) g/dL Urine 04/03/18 Range/Units 05:42 Urine Color Yellow (Yellw/Straw) Urine Clarity Hazy H (Clear) Urine pH 6.0 (5.0-8.5) Ur Specific Kamas 1.031 (1.002-1.035) Urine Protein Negative (Neg-Trace) mg/dL Urine Glucose (UA) Negative (Negative) mg/dL - Imaging Impressions Abdomen/Pelvis CT 04/03/18 01:30 CONCLUSION: 1. There is some air and fluid distention of small bowel loops predominantly in the left side of the abdomen with an apparent transition somewhere near the terminal ileum. Findings are concerning for at least a partial small bowel obstruction. 2. Cortical scarring in the right kidney. 3. Some fluid distention of the urinary bladder. Chest X-Ray 04/03/18 01:30 CONCLUSION: 1. Minimal linear atelectasis or scarring above the left hemidiaphragm. 2. Lungs are otherwise clear. Heart size is normal. Caprini VTE Risk Assessment Caprini VTE Risk Assessment: Moderate/High Risk (score >= 2) Caprini Risk Assessment Model: Point Value = 1 Point Value = 2 Point Value = 3 Point Value = 5 Age 41-60 Minor surgery BMI > 25 kg/m2 Swollen legs Varicose veins or History of unexplained or recurrent spontaneous Oral contraceptives or hormone replacement Sepsis (< 1 month) Serious lung disease, including pneumonia (< 1 month) Abnormal pulmonary function Acute myocardial infarction Congestive heart failure (< 1 month) History of inflammatory bowel disease Medical patient at bed rest Age 61-74 Arthroscopic surgery Major open surgery (> 45 min) Laparoscopic surgery (> 45 min) Malignancy Confined to bed (> 72 hours) Immobilizing plaster cast Central venous access Age >= 75 History of VTE Family history of VTE Factor V Leiden Prothrombin [id number] Lupus anticoagulant Anticardiolipin antibodies Elevated serum homocysteine Heparin-induced thrombocytopenia Other congenital or acquired thrombophilia Stroke (< 1 month) Elective arthroplasty Hip, pelvis, or leg fracture Acute spinal cord injury (< 1 month) Prophylaxis Regimen: Total Risk Factor Score Risk Level Prophylaxis Regimen 0-1 Low Early ambulation 2 Moderate Order ONE of the following: *Sequential Compression Device (SCD) *Heparin 5000 units SQ BID 3-4 Higher Order ONE of the following medications: *Heparin 5000 units SQ TID *Enoxaparin/Lovenox 40 mg SQ daily (WT < 150 kg, CrCl > 30 mL/min) *Enoxaparin/Lovenox 30 mg SQ daily (WT < 150 kg, CrCl > 10-29 mL/min) *Enoxaparin/Lovenox 30 mg SQ BID (WT < 150 kg, CrCl > 30 mL/min) AND/OR *Sequential Compression Device (SCD) 5 or more Highest Order ONE of the following medications: *Heparin 5000 units SQ TID (Preferred with Epidurals) *Enoxaparin/Lovenox 40 mg SQ daily (WT < 150 kg, CrCl > 30 mL/min) *Enoxaparin/Lovenox 30 mg SQ daily (WT < 150 kg, CrCl > 10-29 mL/min) *Enoxaparin/Lovenox 30 mg SQ BID (WT < 150 kg, CrCl > 30 mL/min) AND *Sequential Compression Device (SCD) Assessment and Plan - Assessment (1) Partial small bowel obstruction Code(s): K56.600 - Partial intestinal obstruction, unspecified as to cause Status: Acute Plan: Partial SBO Abd cramping/pain - Pt is a 72 y/o female with CAD with hx of [place], HTN, Hyperlipidemia, PAD, COPD, 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 - She presented to the ED at [facility] on 04/02/18 with complaints of abdominal pain and distension. 6 days ago after eating dinner out she developed severe N/V which persisted through the night and she went to the ED at [facility] on 03/29/18 and received IVF hydration and antiemetics and was discharged home. She did not have any further N/V but reported that her abdomen started becoming more distended and bloated feeling. She has not had a BM since 03/28/18. - CT Abd/pelvis (04/02/18) --> some air and fluid distention of small bowel loops predominantly in the left side of the abdomen with an apparent transition somewhere near the terminal ileum, concerning for at least a partial small bowel obstruction, cortical scarring in the right kidney, and some fluid distention of the urinary bladder. - Pt was given IVF in the ED and is currently NPO. - Cont. IVF - Pt is NPO except meds - Consult General Surgery - Repeat KUB in AM - Encourage OOB/ambulation - PT evaluation - Pain control with IV Ofirmev, pt did not want anything stronger at this time - Antiemetics PRN - Supportive care - DVT prophylaxis with SCDs HTN - BP rather elevated this morning - Resume home meds - Vasotec PRN - Monitor closely Diabetes mellitus - NovoLog SSI - Accu checks - Pt normally takes Novolin N 25 units BID at home CAD with hx of [place] - Pts last LHC on 05/19/[address] Erica --> High grade disease in the ostium of the ramus intermedius, recommended medical therapy - Cont. home meds PAD - Pt has had several recent revascularization procedures with Dr. Llanos - Cont. Plavix and ASA The exam, history, and the medical decision-making described in the above note were completed with the assistance of the mid-level provider. I reviewed and agree with the findings presented. I attest that I had a [id number] encounter with the patient on the same day, and personally performed and documented my assessment and findings in the medical record. (2) HTN (hypertension) Code(s): I10 - Essential (primary) hypertension Status: Chronic (3) Hyperlipidemia Code(s): E78.5 - Hyperlipidemia, unspecified Status: Chronic (4) GERD (gastroesophageal reflux disease) Code(s): K21.9 - Gastro-esophageal reflux disease without esophagitis Status: Chronic (5) Diabetes Code(s): E11.9 - Type 2 diabetes mellitus without complications Status: Chronic (6) PAD (peripheral artery disease) Code(s): I73.9 - Peripheral vascular disease, unspecified Status: Chronic (7) CAD (coronary artery disease) Code(s): I25.10 - Atherosclerotic heart disease of [place] coronary artery without angina pectoris Status: Chronic
[2018-04-03] MEDS ORDERED: Temazepam 15 MG Capsule PO PRN (08:10)
[2018-04-03] MEDS ORDERED: Prochlorperazine 25 MG Supp RECTAL PRN (08:10)
[2018-04-03] MEDS ORDERED: Acetaminophen 325 MG Tablet PO PRN (08:10)
[2018-04-03] MEDS ORDERED: Folic Acid 1 MG Tablet PO SCH (09:00)
[2018-04-03] MEDS ORDERED: clonazePAM 0.5 MG Tablet PO SCH (09:00)
[2018-04-03] MEDS ORDERED: Senna/Docusate Sodium 8.6/50 MG Tablet PO SCH (09:00)
[2018-04-03] MEDS ORDERED: Gabapentin 300 MG Capsule PO SCH (09:00)
[2018-04-03] MEDS ORDERED: Dextrose 50% in Water 50 ML Vial IV.PUSH PRN (09:02)
[2018-04-03] MEDS: Pantoprazole Inj 40 MG Vial IV.PUSH SCH (10:08)
[2018-04-03] MEDS: Metoprolol Tartrate 50 MG Tablet PO SCH ×2 (10:09→21:28)
[2018-04-03] MEDS: Gabapentin 300 MG Capsule PO SCH ×4 (10:10→21:28)
[2018-04-03] MEDS: amLODIPine 5 MG Tablet PO SCH (10:10)
[2018-04-03] MEDS: Sod Chloride 0.9% Inj 1,000 ML IV.CONT SCH ×2 (10:11→21:30)
[2018-04-03] MEDS: Isosorbide Mononitrate 60 MG ER 24HR Tablet (Imdur) PO SCH (10:42)
--- NOTE | 2018-04-03 11:32 | P.CONGS ---
[facility] Gen Surgery Consult Note Consult date: 04/03/18 Narrative: 72 yo F with h/o hysterectomy as well as exploratory laparotomy with lysis of adhesions about 30 yrs ago presents with abdominal pain for a few days associated with increased bloating and inability to have a bowel movt. On 03/29 she presented here to the ED after developing nausea, vomiting and abdominal pain aftereating a large meal. She was felt to have likely gastroenteritis and discharged. At home her vomiting ceased but she continued to have bloating, pain , and no bowel movts. In the ED today, she was noted on CT a/p to have concern for at least partial small bowel obstruction. During my exam, she states she is passing some gas. She has multiple comorbid medical problems and is currently on plavix. Review of Systems All other systems reviewed negative except as stated in [facility] - History History Provided By: Patient - Medical History Medical History: Medical History (Last Reviewed 04/04/18 @ 08:47 by Trevor Kwok) Anxiety Zheng's cyst of knee Bowel disease COPD (chronic obstructive pulmonary disease) Cataract (lens) fragments in eye following cataract surgery, bilateral Coronary artery disease Depression Diabetes FHx: total knee replacement Fibromyalgia H/O: hysterectomy Heart attack Hypertension Neuropathy Osteoarthritis Psoriatic arthritis Rotator cuff impingement syndrome of left shoulder Skin cancer - Surgical History Surgical History: Surgical History (Last Reviewed 04/04/18 @ 08:47 by Trevor Kwok) H/O arthroscopic knee surgery H/O exploratory laparotomy H/O heart bypass surgery History of coronary artery stent placement - Tobacco History Second Hand Smoke Exposure: No Tobacco Use In Past 30 Days: No Smoking Status: Never smoker - Alcohol History How Often Do You Have a Drink Containing Alcohol: Never - Substance Use History Substance History: No History of Abuse - Travel History Recent Travel in the [place] Within the Last 8 Weeks: No Recent Travel Out of the Country Within the Last 8 Weeks: No - Immunization History Tetanus Immunization: Unsure Hx Influenza Vaccine This Season: No Medications and Allergies Active Medications: Active Medications Acetaminophen (Tylenol) 650 mg PO Q4H PRN PRN Reason: Temp > 100.4 Amlodipine Besylate (Norvasc) 2.5 mg PO DAILY [facility] Last Admin: 04/03/18 10:10 Dose: 2.5 mg Aspirin (Ecotrin) 81 mg PO DAILY [facility] Last Admin: 04/03/18 10:10 Dose: 81 mg Clonazepam (Klonopin) 0.25 mg PO HS PRN PRN Reason: Anxiety or insomnia Clopidogrel Bisulfate (Plavix) 75 mg PO DAILY [facility] Last Admin: 04/03/18 10:08 Dose: 75 mg Dextrose (D50w Vial) 50 ml IV.PUSH UNSCH PRN PRN Reason: PER HYPOGLYCEMIA PROTOCOL Enalaprilat (Vasotec Inj) 1.25 mg IV.PUSH Q6H PRN PRN Reason: systolic BP over 170 Gabapentin (Neurontin) 300 mg PO QID [facility] Last Admin: 04/03/18 10:10 Dose: 300 mg Glucagon (Glucagon Inj) 1 mg OTHER UNSCH PRN PRN Reason: for Hypoglycemia Protocol Sodium Chloride (Ns Inj) 1,000 mls @ 100 mls/hr IV.CONT .Q10H [facility] Last Admin: 04/03/18 10:11 Dose: 100 mls/hr Acetaminophen (Ofirmev Inj) 1,000 mg in 100 mls @ 400 mls/hr IV.SIG Q6H PRN PRN Reason: PAIN SCALE 1 TO 10 Insulin Aspart (Novolog Insulin Correctional Sugar Inj) 0 unit SQ [facility]; Protocol Isosorbide Mononitrate (Imdur) 60 mg PO DAILY@0700 [facility] Last Admin: 04/03/18 10:42 Dose: 60 mg Magnesium Citrate (Citroma Liq) 300 ml PO ONCE ONE Stop: 04/03/18 11:32 Metoprolol Tartrate (Lopressor) 50 mg PO BID [facility] Last Admin: 04/03/18 10:09 Dose: 50 mg Miscellaneous (Pill Splitter) 1 each OTHER UNSCH PRN PRN Reason: SEE LABEL COMMENTS Ondansetron HCl (Zofran Odt) 4 mg PO Q4H PRN PRN Reason: NAUSEA/VOMITING Pantoprazole Sodium (Protonix Inj) 40 mg IV.PUSH Q24H [facility] Last Admin: 04/03/18 10:08 Dose: 40 mg Prochlorperazine (Compazine Supp) 25 mg RECTAL Q12H PRN PRN Reason: NAUSEA OR VOMITING Sodium Chloride (Ns Flush) 2 ml IV.FLUSH PRN PRN PRN Reason: FLUSH AFTER USING IV ACCESS Allergies Allergy/AdvReac Type Severity Reaction Status Date / Time azithromycin Allergy Severe Rash Verified 04/03/18 01:22 budesonide Allergy Severe NAUSEA, Verified 04/03/18 01:22 PANIC ATTACKS ciprofloxacin Allergy Severe "CAN'T Verified 04/03/18 01:22 REMEMBER" erythromycin base Allergy Severe Rash Verified 04/03/18 01:22 etanercept [From Enbrel] Allergy Severe Rash Verified 04/03/18 01:22 leflunomide Allergy Severe Rash Verified 04/03/18 01:22 montelukast Allergy Severe NAUSEA Verified 04/03/18 01:22 Sulfa (Sulfonamide Allergy Severe Rash Verified 04/03/18 01:22 Antibiotics) amlodipine Allergy Unknown MUSCLE Verified 04/03/18 01:22 ACHES atorvastatin Allergy Unknown MUSCLE Verified 04/03/18 01:22 ACHES choline fenofibrate Allergy Unknown "CANNOT Verified 04/03/18 01:22 REMEMBER" cyclobenzaprine Allergy Unknown "CANNOT Verified 04/03/18 01:22 REMEMBER" pravastatin Allergy Unknown MUSCLE Verified 04/03/18 01:22 ACHES simvastatin Allergy Unknown MUSCLE Verified 04/03/18 01:22 ACHES niacin AdvReac Severe Cramping Verified 04/03/18 01:22 infliximab AdvReac Unknown Nausea/Vomi Verified 04/03/18 01:22 ting infliximab-dyyb AdvReac Unknown Nausea/Vomi Verified 04/03/18 01:22 ting Home Medications Medication Instructions Recorded Confirmed Type albuterol sulfate [Ventolin HFA] 2 puff INHALATION Q4-6H PRN 03/29/18 04/03/18 History amlodipine [Norvasc] 2.5 mg PO DAILY 03/29/18 04/03/18 History aspirin 81 mg PO DAILY 03/29/18 04/03/18 History cholecalciferol (vitamin D3) 2,000 unit PO DAILY 03/29/18 04/03/18 History [Vitamin D3] clonazepam 0.25 mg PO HS PRN 03/29/18 04/03/18 History clopidogrel [Plavix] 75 mg PO DAILY 03/29/18 04/03/18 History folic acid 1 mg PO DAILY 03/29/18 04/03/18 History gabapentin 300 mg PO QID 03/29/18 04/03/18 History insulin NPH isoph U-100 human 25 unit SUB-Q BID 03/29/18 04/03/18 History [Novolin N NPH U-100 Insulin] isosorbide mononitrate 60 mg PO DAILY 03/29/18 04/03/18 History methotrexate (PF) 17.5 mg SUB-Q QWEEK 03/29/18 04/03/18 History metoprolol tartrate 50 mg PO BID 03/29/18 04/03/18 History nitroglycerin 0.4 mg SUBLINGUAL Q5-15M PRN 03/29/18 04/03/18 History omega-3 acid ethyl esters [Lovaza] 2 cap PO BID 03/29/18 04/03/18 History cholecalciferol (vitamin D3) 2,000 unit PO DAILY 04/03/18 04/03/18 History [Vitamin D3] Exam Vital signs: Vital Signs 04/02/18 22:10 04/03/18 03:37 04/03/18 06:43 Temperature 98.4 F Pulse Rate 72 80 78 Respiratory Rate 16 16 16 Blood Pressure 179/75 H 160/70 H 210/75 H Pulse Oximetry 96 98 98 04/03/18 08:00 04/03/18 10:00 Temperature Pulse Rate 62 58 L Respiratory Rate 17 15 Blood Pressure 207/90 H 180/78 H Pulse Oximetry 97 98 Intake & Output 04/02/18 04/03/18 04/03/18 18:59 06:59 18:59 Weight 68.039 kg Narrative: GENERAL: Awake and alert. No acute distress. Cooperative. Obese. HEAD: Normocephalic. Atraumatic. EYES: Pupils equal round and reactive to light bilaterally. No scleral icterus. ENT: Moist oral mucosa. NECK: Trachea midline. CHEST: Nonlabored breathing. No respiratory distress. CARDIOVASCULAR: Regular rate and rhythm. ABDOMEN: Moderate distention. Mild diffuse tenderness. EXTREMITIES: No cyanosis or edema. SKIN: Warm, dry, nonjaundiced. Results - Labs 04/04/18 06:29 04/04/18 06:29 Abnormal lab results 04/03/18 04/03/18 04/03/18 Range/Units 02:07 02:07 05:42 RDW 17.5 H (11.6-17.2) % [place] % (Auto) 8.4 H (0.0-8.0) % Estimated GFR 76 L (>89) mL/min Random Glucose 136 H (74-106) mg/dL Total Bilirubin 1.1 H (0.2-1.0) mg/dL Troponin I Less than 0.02 L (0.02-0.05) ng/mL Urine Clarity Hazy H (Clear) Urine Ketones Trace H (Negative) mg/dL Urine Urobilinogen 2.0 H (Less than 2) mg/dL Ur Leukocyte Esterase Large H (Negative) Urine RBC 4 H (0-3) /hpf Urine WBC 37 H (0-5) /hpf Urine Mucus Few H (Occasional) /lpf Diabetes panel 04/03/18 Range/Units 02:07 Sodium 138 (136-145) meq/L Potassium 3.7 (3.5-5.1) meq/L Chloride 101 (98-107) meq/L Carbon Dioxide 26.4 (21.0-32.0) meq/L BUN 18 (7-18) mg/dL Creatinine 0.75 (0.50-1.00) mg/dL Calcium 9.3 (8.5-10.1) mg/dL AST 20 (15-37) U/L ALT 16 (10-53) U/L Alkaline Phosphatase 63 (45-117) U/L Total Protein 7.7 (6.4-8.2) g/dL Albumin 3.7 (3.4-5.0) g/dL Calcium panel 04/03/18 Range/Units 02:07 Calcium 9.3 (8.5-10.1) mg/dL Albumin 3.7 (3.4-5.0) g/dL Pituitary panel 04/03/18 Range/Units 02:07 Sodium 138 (136-145) meq/L Potassium 3.7 (3.5-5.1) meq/L Chloride 101 (98-107) meq/L Carbon Dioxide 26.4 (21.0-32.0) meq/L BUN 18 (7-18) mg/dL Creatinine 0.75 (0.50-1.00) mg/dL Calcium 9.3 (8.5-10.1) mg/dL Adrenal panel 04/03/18 Range/Units 02:07 Sodium 138 (136-145) meq/L Potassium 3.7 (3.5-5.1) meq/L Chloride 101 (98-107) meq/L Carbon Dioxide 26.4 (21.0-32.0) meq/L BUN 18 (7-18) mg/dL Creatinine 0.75 (0.50-1.00) mg/dL Calcium 9.3 (8.5-10.1) mg/dL Total Bilirubin 1.1 H (0.2-1.0) mg/dL AST 20 (15-37) U/L ALT 16 (10-53) U/L Alkaline Phosphatase 63 (45-117) U/L Total Protein 7.7 (6.4-8.2) g/dL Albumin 3.7 (3.4-5.0) g/dL All other labs normal. - Imaging CT scan - abdomen: report reviewed, image reviewed CT scan - pelvis: report reviewed, image reviewed Assessment and Plan - Assessment (1) Partial small bowel obstruction Code(s): K56.600 - Partial intestinal obstruction, unspecified as to cause Status: Acute Plan: She is already passing flatus and I will attempt to treat this nonoperatively. Start her on clear liquids and will have her slowly take a bottle of magnesium citrate. She can continue Plavix for now as I think there is a low likelihood of requiring operative intervention.
[2018-04-03] MEDS ORDERED: Magnesium Citrate Liq 300 ML Bottle PO ONE (12:15)
[2018-04-03] MEDS: Insulin NovoLOG Aspart Correctional Sugar Inj SQ SCH (12:32)
--- NOTE | 2018-04-03 18:43 | ECG ---
Date Performed: 04/03/2018 Time Performed: 02:00:34 PTAGE: 72 years EKG: SINUS BRADYCARDIA WITH SHORT AL INTERVAL BORDERLINE LEFT AXIS DEVIATION INCOMPLETE RIGHT BU NDLE BRANCH BLOCK LEFT VENTRICULAR HYPERTROPHY AND ST-T CHANGE ABNORMAL ECG Since the PREVIOUS TRACING , no significant change noted DOCTOR: Saad Gil Interpretating Date/Time 04/03/2018 18:41:10
[2018-04-03] MEDS: clonazePAM 0.5 MG Tablet PO PRN (21:40)
[2018-04-04] MEDS: Isosorbide Mononitrate 60 MG ER 24HR Tablet (Imdur) PO SCH (06:49)
[2018-04-04 06:51] LABS: Baso % (Auto) 0.4 % (0.0-2.0); Eos # (Auto) 0.1 th/mm3 (0.0-0.4); Hematocrit 36.8 % (35.0-46.0); Hemoglobin 12.4 gm/dL (11.6-15.3); Lymph # (Auto) 1.5 th/mm3 (1.0-4.8); Lymph % (Auto) 23.8 % (9.0-44.0); Mean Corpuscular HGB Conc 33.6 % (32.0-36.0); Mean Corpuscular Hemoglobin 29.1 pg (27.0-34.0); Mean Corpuscular Volume 86.4 fL (80.0-100.0); Mono # (Auto) 0.6 th/mm3 (0.0-0.9); Mono % (Auto) 8.8 % (0.0-8.0); Neut # (Auto) 4.2 th/mm3 (1.8-7.7); Platelet Count 179 th/mm3 (150-450); Red Blood Count 4.26 mil/mm3 (4.00-5.30); Red Cell Distribution Width 17.9 % (11.6-17.2); White Blood Count 6.5 th/mm3 (4.0-11.0)
--- NOTE | 2018-04-04 07:04 | XR ---
EXAM DATE: 04/04/2018 6:59 AM EDT AGE/SEX: 72 years / Female INDICATIONS: Evaluate for partial small bowel obstruction, no abdominal pain at this time CLINICAL DATA: This is the patient's subsequent encounter. Patient reports that signs and symptoms h ave been present for 3 weeks and indicates a pain score of 0/10. MEDICAL/SURGICAL HISTORY: Cardiovascular disease. Chronic obstructive pulmonary disease. Diab etes. CABG. Pacemaker. COMPARISON: [facility] [place], ABDOMEN FLAT & UPRIGHT, 05/03/2015. . FINDINGS: The bowel gas is nonspecific. There are no signs of obstruction or free air for technique. No defin ite calcified stones are identified for technique. Electronically signed by: Clifford Boyd MD 04/04/2018 7:02 AM EDT
[2018-04-04 07:14] LABS: Calcium 8.7 mg/dL (8.5-10.1); Potassium 3.7 meq/L (3.5-5.1)
[2018-04-04] MEDS: Metoprolol Tartrate 50 MG Tablet PO SCH (08:49)
[2018-04-04] MEDS: Gabapentin 300 MG Capsule PO SCH ×4 (08:49→20:53)
[2018-04-04] MEDS: amLODIPine 5 MG Tablet PO SCH (08:49)
--- NOTE | 2018-04-04 09:12 | P.PNIM ---
Subjective Interval history: moving bowels this AM less abdomen distention no vomiting. pedro diet. Physical Exam Vital signs: Vital Signs 04/03/18 10:00 04/03/18 12:00 04/03/18 14:00 Temperature Pulse Rate 58 L 50 L 46 L Respiratory Rate 15 18 15 Blood Pressure 180/78 H 166/74 H 159/69 H Pulse Oximetry 98 96 04/03/18 17:00 04/03/18 18:33 04/03/18 20:00 Temperature 98.2 F 98 F Pulse Rate 56 L 55 L 59 L Respiratory Rate 20 20 Blood Pressure 153/97 H 155/66 H Pulse Oximetry 96 04/04/18 00:00 04/04/18 04:00 04/04/18 08:00 Temperature 97.3 F L 97.2 F L 97.6 F Pulse Rate 47 L 48 L 55 L Respiratory Rate 20 20 20 Blood Pressure 156/67 H 168/70 H 169/72 H Pulse Oximetry 96 98 95 Intake & Output 04/03/18 04/04/18 04/04/18 18:59 06:59 18:59 Intake Total 60 / 60 1220 / 1220 Balance 60 / 60 1220 / 1220 Intake: IV 1000 / 1000 NS Inj 1,000 ML @ 100 mls/hr IV 1000 / 1000 .CONT .Q10H ED[facility]O Rx#:[id number] Oral 60 / 60 220 / 220 Other: # Voids 1 4 Date of Last Bowel Movement 04/04/18 # Bowel Movements 2 Weight On Admission 70.8 kg heart reg lung cta abd diminished bs/nt/ ext no edema Results - Labs CBC & Chem 7: 04/04/18 06:29 04/04/18 06:29 Laboratory Results - last 24 hr 04/03/18 04/03/18 04/03/18 12:03 17:43 21:27 WBC RBC Hgb Hct MCV MCH MCHC RDW Plt Count MPV Neut % (Auto) Lymph % (Auto) [place] % (Auto) Eos % (Auto) Baso % (Auto) Neut # (Auto) Lymph # (Auto) [place] # (Auto) Eos # (Auto) Baso # (Auto) WBC Differential Differential Comment Sodium Potassium Chloride Carbon Dioxide Anion Gap BUN Creatinine Estimated GFR POC Glucose 157 H 133 H 202 H Random Glucose Calcium 04/04/18 04/04/18 06:29 06:29 WBC 6.5 RBC 4.26 Hgb 12.4 Hct 36.8 MCV 86.4 MCH 29.1 MCHC 33.6 RDW 17.9 H Plt Count 179 MPV 9.0 Neut % (Auto) 65.0 Lymph % (Auto) 23.8 [place] % (Auto) 8.8 H Eos % (Auto) 2.0 Baso % (Auto) 0.4 Neut # (Auto) 4.2 Lymph # (Auto) 1.5 [place] # (Auto) 0.6 Eos # (Auto) 0.1 Baso # (Auto) 0.0 WBC Differential . Differential Comment Auto diff final Sodium 141 Potassium 3.7 Chloride 107 Carbon Dioxide 26.0 Anion Gap 8 BUN 8 Creatinine 0.66 Estimated GFR 88 L POC Glucose Random Glucose 133 H Calcium 8.7 - Imaging Impressions Abdomen X-Ray 04/04/18 07:00 CONCLUSION: Unremarkable study. 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 - She presented to the ED [place] [facility] [place] with complaints of abdominal pain and distension. 6 days ago after eating dinner out she developed severe N/V which persisted through the night and she went to the ED at [facility] [place] on 03/29/18 and received IVF hydration and antiemetics and was discharged home. She did not have any further N/V but reported that her abdomen started becoming more distended and bloated feeling. She has not had a BM since 03/28/18. - CT Abd/pelvis (04/02/18) --> some air and fluid distention of small bowel loops predominantly in the left side of the abdomen with an apparent transition somewhere near the terminal ileum, concerning for at least a partial small bowel obstruction, cortical scarring in the right kidney, and some fluid distention of the urinary bladder. - Encourage OOB/ambulation - PT evaluation - Pain control with IV Ofirmev, pt did not want anything stronger at this time - Antiemetics PRN - Supportive care - DVT prophylaxis with SCDs Pt moving bowels this AM. advance diet per gen surg. ambulate. HTN - Resume home meds - Vasotec PRN - Monitor closely Diabetes mellitus - NovoLog SSI - Accu checks - Pt normally takes Novolin N 25 units BID at home CAD with hx of [place] - Pts last LHC on 05/19/[address] Maldonado --> High grade disease in the ostium of the ramus intermedius, recommended medical therapy - Cont. home meds PAD - Pt has had several recent revascularization procedures with Dr. Llanos - Cont. Plavix and ASA (2) HTN (hypertension) Code(s): I10 - Essential (primary) hypertension Status: Chronic (3) Hyperlipidemia Code(s): E78.5 - Hyperlipidemia, unspecified Status: Chronic (4) GERD (gastroesophageal reflux disease) Code(s): K21.9 - Gastro-esophageal reflux disease without esophagitis Status: Chronic (5) Diabetes Code(s): E11.9 - Type 2 diabetes mellitus without complications Status: Chronic (6) PAD (peripheral artery disease) Code(s): I73.9 - Peripheral vascular disease, unspecified Status: Chronic (7) CAD (coronary artery disease) Code(s): I25.10 - Atherosclerotic heart disease of [place] coronary artery without angina pectoris Status: Chronic
[2018-04-04] MEDS: Pantoprazole Inj 40 MG Vial IV.PUSH SCH (11:58)
--- NOTE | 2018-04-04 13:26 | P.PNGS ---
Subjective Interval history: She has had bowel movts. Tolerating clears and feels hungry. Physical Exam Vital signs: Vital Signs 04/03/18 14:00 04/03/18 17:00 04/03/18 18:33 Temperature 98.2 F Pulse Rate 46 L 56 L 55 L Respiratory Rate 15 20 Blood Pressure 159/69 H 153/97 H Pulse Oximetry 04/03/18 20:00 04/04/18 00:00 04/04/18 04:00 Temperature 98 F 97.3 F L 97.2 F L Pulse Rate 59 L 47 L 48 L Respiratory Rate 20 20 20 Blood Pressure 155/66 H 156/67 H 168/70 H Pulse Oximetry 96 96 98 04/04/18 08:00 04/04/18 12:00 Temperature 97.6 F 97.3 F L Pulse Rate 55 L 46 L Respiratory Rate 20 20 Blood Pressure 169/72 H 158/70 H Pulse Oximetry 95 99 Intake & Output 04/03/18 04/04/18 04/04/18 18:59 06:59 18:59 Intake Total 60 / 60 1220 / 1220 Balance 60 / 60 1220 / 1220 Intake: IV 1000 / 1000 NS Inj 1,000 ML @ 100 mls/hr IV 1000 / 1000 .CONT .Q10H ED[facility] Rx#:[id number] Oral 60 / 60 220 / 220 Other: # Voids 1 4 Date of Last Bowel Movement 04/04/18 04/04/18 # Bowel Movements 2 Weight On Admission 70.8 kg Narrative: Abd: mild distention, mild diffuse ttp Assessment and Plan - Assessment (1) Partial small bowel obstruction Code(s): K56.600 - Partial intestinal obstruction, unspecified as to cause Status: Acute - Plan Partial small bowel obstruction resolving. Start soft diet. Likely ok for dc home tomorrow as long as tolerating diet.
[2018-04-04] MEDS: Insulin NovoLOG Aspart Correctional Sugar Inj SQ SCH ×3 (16:56→20:31)
[2018-04-04] MEDS: Metoprolol Tartrate 25 MG Tablet PO SCH (20:52)
[2018-04-04] MEDS: Sod Chloride 0.9% Inj 1,000 ML IV.CONT SCH (20:54)
[2018-04-04] MEDS: clonazePAM 0.5 MG Tablet PO PRN (21:59)
[2018-04-05] MEDS: Sod Chloride 0.9% Inj 1,000 ML IV.CONT SCH ×3 (04:17→21:39)
[2018-04-05] MEDS: Isosorbide Mononitrate 60 MG ER 24HR Tablet (Imdur) PO SCH (06:30)
--- NOTE | 2018-04-05 09:18 | P.PNIM ---
Subjective Interval history: passing gas. no further bm since yesterday AM pt stopped eating food last night due to bloating. denies any uti sx's and wants to avoid abx. Physical Exam Vital signs: Vital Signs 04/04/18 12:00 04/04/18 16:00 04/04/18 20:00 Temperature 97.3 F L 97.9 F 98.1 F Pulse Rate 46 L 50 L 53 L Respiratory Rate 20 22 20 Blood Pressure 158/70 H 163/69 H 162/72 H Pulse Oximetry 99 99 99 04/05/18 00:00 04/05/18 04:00 04/05/18 08:00 Temperature 98 F 98.2 F 97.9 F Pulse Rate 53 L 57 L 53 L Respiratory Rate 20 20 16 Blood Pressure 168/73 H 171/74 H 178/70 H Pulse Oximetry 96 97 95 Intake & Output 04/04/18 04/05/18 04/05/18 18:59 06:59 18:59 Intake Total 2260 / 2260 1280 / 1280 Balance 2260 / 2260 1280 / 1280 Intake: IV 1000 / 1000 NS Inj 1,000 ML @ 100 mls/hr IV 1000 / 1000 .CONT .Q10H [facility] Rx#:[id number] Oral 2260 / 2260 280 / 280 Other: # Voids 5 3 Date of Last Bowel Movement 04/04/18 04/04/18 # Bowel Movements 2 Results - Labs CBC & Chem 7: 04/04/18 06:29 04/04/18 06:29 Laboratory Results - last 24 hr 04/04/18 04/04/18 04/05/18 16:48 20:25 08:19 POC Glucose 198 H 152 H 153 H Microbiology 04/03/18 05:42 Clean Catch Urine Urine Culture - Final Group B beta Strep Assessment and Plan - Assessment (1) Partial small bowel obstruction Code(s): K56.600 - Partial intestinal obstruction, unspecified as to cause Status: Acute Plan: Partial SBO Abd cramping/pain - Pt is a 72 y/o female with CAD with hx of [place], HTN, Hyperlipidemia, PAD, COPD, 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 - She presented to the ED at [facility] [place] on 04/02/18 with complaints of abdominal pain and distension. 6 days ago after eating dinner out she developed severe N/V which persisted through the night and she went to the ED at [facility] [place] on 03/29/18 and received IVF hydration and antiemetics and was discharged home. She did not have any further N/V but reported that her abdomen started becoming more distended and bloated feeling. She has not had a BM since 03/28/18. - CT Abd/pelvis (04/02/18) --> some air and fluid distention of small bowel loops predominantly in the left side of the abdomen with an apparent transition somewhere near the terminal ileum, concerning for at least a partial small bowel obstruction, cortical scarring in the right kidney, and some fluid distention of the urinary bladder. - Encourage OOB/ambulation - PT evaluation - Pain control with IV Ofirmev, pt did not want anything stronger at this time - Antiemetics PRN - Supportive care - DVT prophylaxis with SCDs pt says advancing her diet last night caused more bloating. still passing gas. cont ambulation recheck u/a. pt denies any uti sx's bb lowered due to milly. will increase amlodipine for elevated bp. HTN - Resume home meds - Vasotec PRN - Monitor closely Diabetes mellitus - NovoLog SSI - Accu checks - Pt normally takes Novolin N 25 units BID at home CAD with hx of [place] - Pts last [facility] on 05/19/[address] Maldonado --> High grade disease in the ostium of the ramus intermedius, recommended medical therapy - Cont. home meds PAD - Pt has had several recent revascularization procedures with Dr. Llanos - Cont. Plavix and ASA (2) HTN (hypertension) Code(s): I10 - Essential (primary) hypertension Status: Chronic (3) Hyperlipidemia Code(s): E78.5 - Hyperlipidemia, unspecified Status: Chronic (4) GERD (gastroesophageal reflux disease) Code(s): K21.9 - Gastro-esophageal reflux disease without esophagitis Status: Chronic (5) Diabetes Code(s): E11.9 - Type 2 diabetes mellitus without complications Status: Chronic (6) PAD (peripheral artery disease) Code(s): I73.9 - Peripheral vascular disease, unspecified Status: Chronic (7) CAD (coronary artery disease) Code(s): I25.10 - Atherosclerotic heart disease of [place] coronary artery without angina pectoris Status: Chronic
[2018-04-05] MEDS ORDERED: amLODIPine 5 MG Tablet PO ONE (10:00)
[2018-04-05] MEDS: Pantoprazole Inj 40 MG Vial IV.PUSH SCH (10:30)
[2018-04-05] MEDS: Insulin NovoLOG Aspart Correctional Sugar Inj SQ SCH ×4 (10:32→21:40)
[2018-04-05] MEDS: Gabapentin 300 MG Capsule PO SCH ×4 (10:34→21:39)
[2018-04-05] MEDS: Metoprolol Tartrate 25 MG Tablet PO SCH ×2 (10:35→21:39)
--- NOTE | 2018-04-05 10:58 | P.PNGS ---
Subjective Interval history: Feels better this am but last night felt very poorly with bloating and pain after only small amt of solids. Physical Exam Vital signs: Vital Signs 04/04/18 12:00 04/04/18 16:00 04/04/18 20:00 Temperature 97.3 F L 97.9 F 98.1 F Pulse Rate 46 L 50 L 53 L Respiratory Rate 20 22 20 Blood Pressure 158/70 H 163/69 H 162/72 H Pulse Oximetry 99 99 99 04/05/18 00:00 04/05/18 04:00 04/05/18 08:00 Temperature 98 F 98.2 F 97.9 F Pulse Rate 53 L 57 L 53 L Respiratory Rate 20 20 16 Blood Pressure 168/73 H 171/74 H 178/70 H Pulse Oximetry 96 97 95 Intake & Output 04/04/18 04/05/18 04/05/18 18:59 06:59 18:59 Intake Total 2260 / 2260 1280 / 1280 Balance 2260 / 2260 1280 / 1280 Intake: IV 1000 / 1000 NS Inj 1,000 ML @ 100 mls/hr IV 1000 / 1000 .CONT .Q10H [facility] Rx#:[id number] Oral 2260 / 2260 280 / 280 Other: # Voids 5 3 Date of Last Bowel Movement 04/04/18 04/04/18 # Bowel Movements 2 Narrative: abd moderate distention, mild diffuse ttp Assessment and Plan - Assessment (1) Partial small bowel obstruction Code(s): K56.600 - Partial intestinal obstruction, unspecified as to cause Status: Acute Plan: Persistent symptoms of partial obstruction off and on. Will check small bowel series.
[2018-04-05] MEDS ORDERED: Diatrizoate Meglum/Diatrizoate Sod Liq 120 ML Bottle (for RAD diag) PO ONE (16:36)
--- NOTE | 2018-04-05 20:19 | FL ---
EXAM DATE: 04/05/2018 7:57 PM EDT AGE/SEX: 72 years / Female INDICATIONS: Obstruction CLINICAL DATA: This is the patient's initial encounter. Patient reports that signs and symptoms have been present for 3 days and indicates a pain score of 0/10. MEDICAL/SURGICAL HISTORY: . bowel obstruction years ago. Hysterectomy. exploratory and tube ti ed. [place] [facility] [place] [facility] [place]EL[place]AST[place] 04/03/2018. . FLUORO TIME: 1 IMAGE COUNT: 2 CONTRAST: FINDINGS: [facility] film reveals dilated small bowel especially in the upper abdomen. The small bowel measures over 4 cm in diameter. Free air is not seen. The patient is status post sternotomy. Vascular stents are s een at the common iliac regions. There appears to be a small hiatal hernia. The stomach is otherwise grossly unremarkable. Examination of the small bowel demonstrates the proximal small bowel is distended. Contrast is seen w ithin the ascending colon on the 3 hour image. Fluoroscopy of the abdomen fails to reveal a transitio n point. However, it should be noted that contrast is dilute in the distal small bowel. CONCLUSION: Dilated small bowel. The patient does appear to have a possible partial obstruction on the prior CT e xamination with a transition point at the distal ileum. Contrast clearly seen to extend into the colo n on the three-hour image suggesting any obstruction is partial. Electronically signed by: Vega Baltazar MD 04/05/2018 8:17 PM EDT
[2018-04-05 21:33] VITALS: RESP 16
[2018-04-06] MEDS: Gabapentin 300 MG Capsule PO SCH ×2 (08:54→12:42)
[2018-04-06] MEDS: Isosorbide Mononitrate 60 MG ER 24HR Tablet (Imdur) PO SCH (08:55)
[2018-04-06] MEDS: Metoprolol Tartrate 25 MG Tablet PO SCH (08:57)
[2018-04-06] MEDS: Insulin NovoLOG Aspart Correctional Sugar Inj SQ SCH ×2 (08:59→12:41)
[2018-04-06] MEDS ORDERED: amLODIPine 5 MG Tablet PO SCH (09:00)
[2018-04-06 09:15] VITALS: O2SAT 95
--- NOTE | 2018-04-06 10:02 | P.PNGS ---
Subjective Interval history: SBFT progressed within at least 3 hrs to colon. SHe feels less bloated but has not had breakfast yet. Had multiple liquid stools. Physical Exam Vital signs: Vital Signs 04/05/18 12:00 04/05/18 16:00 04/05/18 20:00 Temperature 97.8 F 97.7 F 97.6 F Pulse Rate 56 L 59 L 64 Respiratory Rate 16 14 16 Blood Pressure 152/65 H 166/73 H 185/79 H Pulse Oximetry 98 99 98 04/06/18 00:00 04/06/18 04:00 04/06/18 08:00 Temperature 97.9 F 98 F 97.6 F Pulse Rate 62 53 L 53 L Respiratory Rate 16 16 16 Blood Pressure 151/68 H 130/81 173/71 H Pulse Oximetry 96 96 95 Intake & Output 04/05/18 04/06/18 04/06/18 18:59 06:59 18:59 Intake Total 280 / 280 Balance 280 / 280 Weight 68.1 kg Intake: Oral 280 / 280 Other: # Voids 3 1 Date of Last Bowel Movement 04/04/18 04/05/18 # Bowel Movements 2 Narrative: NAD Abd: soft, mild distention Assessment and Plan - Assessment (1) Partial small bowel obstruction Code(s): K56.600 - Partial intestinal obstruction, unspecified as to cause Status: Acute Plan: SBFT ok. If tolerates PO diet this morning ok for dc home in afternoon from my standpoint. Does have a partial obstruction but hopefully resolving.
--- NOTE | 2018-04-06 10:03 | P.PNIM ---
Subjective Interval history: abdomen feels flat and not bloated. moving bowels all night after sbft. Physical Exam Vital signs: Vital Signs 04/05/18 12:00 04/05/18 16:00 04/05/18 20:00 Temperature 97.8 F 97.7 F 97.6 F Pulse Rate 56 L 59 L 64 Respiratory Rate 16 14 16 Blood Pressure 152/65 H 166/73 H 185/79 H Pulse Oximetry 98 99 98 04/06/18 00:00 04/06/18 04:00 04/06/18 08:00 Temperature 97.9 F 98 F 97.6 F Pulse Rate 62 53 L 53 L Respiratory Rate 16 16 16 Blood Pressure 151/68 H 130/81 173/71 H Pulse Oximetry 96 96 95 Intake & Output 04/05/18 04/06/18 04/06/18 18:59 06:59 18:59 Intake Total 280 / 280 Balance 280 / 280 Weight 68.1 kg Intake: Oral 280 / 280 Other: # Voids 3 1 Date of Last Bowel Movement 04/04/18 04/05/18 # Bowel Movements 2 haert reg lung cta abd s/nt/bs ext no edema Results - Labs CBC & Chem 7: 04/04/18 06:29 04/04/18 06:29 Laboratory Results - last 24 hr 04/05/18 04/05/18 04/05/18 11:59 15:47 18:04 POC Glucose 204 H 121 H 126 H 04/05/18 04/06/18 21:14 07:51 POC Glucose 149 H 131 H Microbiology 04/03/18 05:42 Clean Catch Urine Urine Culture - Final Group B beta Strep - Imaging Impressions Small Bowel X-Ray 04/05/18 00:00 CONCLUSION: Dilated small bowel. The patient does appear to have a possible partial obstruction on the prior CT examination with a transition point at the distal ileum. Contrast clearly seen to extend into the colon on the three-hour image suggesting any obstruction is partial. 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 - She presented to the ED at [facility] on 04/02/18 with complaints of abdominal pain and distension. 6 days ago after eating dinner out she developed severe N/V which persisted through the night and she went to the ED at [facility] on 03/29/18 and received IVF hydration and antiemetics and was discharged home. She did not have any further N/V but reported that her abdomen started becoming more distended and bloated feeling. She has not had a BM since 03/28/18. - CT Abd/pelvis (04/02/18) --> some air and fluid distention of small bowel loops predominantly in the left side of the abdomen with an apparent transition somewhere near the terminal ileum, concerning for at least a partial small bowel obstruction, cortical scarring in the right kidney, and some fluid distention of the urinary bladder. -SBFT. dilated small bowel. no transition point. contrast passing. probably psbo - Encourage OOB/ambulation - PT evaluation - Pain control with IV Ofirmev, pt did not want anything stronger at this time - Antiemetics PRN - Supportive care - DVT prophylaxis with SCDs advance diet today and if tolerating...dc home cont ambulation pt denies any uti sx's and wants to avoid abx bb lowered due to milly. will increase amlodipine for elevated bp. HTN - Resume home meds - Vasotec PRN - Monitor closely Diabetes mellitus - NovoLog SSI - Accu checks - Pt normally takes Novolin N 25 units BID at home CAD with hx of [place] - Pts last C on 05/19/[address] Maldonado --> High grade disease in the ostium of the ramus intermedius, recommended medical therapy - Cont. home meds PAD - Pt has had several recent revascularization procedures with Dr. Llanos - Cont. Plavix and ASA (2) HTN (hypertension) Code(s): I10 - Essential (primary) hypertension Status: Chronic (3) Hyperlipidemia Code(s): E78.5 - Hyperlipidemia, unspecified Status: Chronic (4) GERD (gastroesophageal reflux disease) Code(s): K21.9 - Gastro-esophageal reflux disease without esophagitis Status: Chronic (5) Diabetes Code(s): E11.9 - Type 2 diabetes mellitus without complications Status: Chronic (6) PAD (peripheral artery disease) Code(s): I73.9 - Peripheral vascular disease, unspecified Status: Chronic (7) CAD (coronary artery disease) Code(s): I25.10 - Atherosclerotic heart disease of [place] coronary artery without angina pectoris Status: Chronic
[2018-04-06] MEDS: Pantoprazole Inj 40 MG Vial IV.PUSH SCH (10:42)
[2018-04-06 13:13] VITALS: BP 146/63; TEMP 97.5
--- NOTE | 2018-04-06 15:20 | P.DS ---
Date of admission: 04/03/18 04:46 Primary care physician: Jesus Hoskins Anticipated date of discharge: 04/06/18 Brief History from admission: Ms. 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 She presented to the ED at [facility] [place] on 04/02/18 with complaints of abdominal pain and distension. She reports that 6 days ago after eating dinner out she developed severe N/V which persisted through the night and she went to the ED at [facility] [place] on 03/29/18 and received IVF hydration and antiemetics and was discharged with a prescription for Reglan. Pt reports that after going home she wasn't eating much or drinking much but was taking her medications. She did not have any further N/V but reported that her abdomen started becoming more distended and bloated feeling. She has not had a BM since 03/28/18 which was normal. Her increasing abd distension and cramping prompted her to come to the ED for further evaluation. In the ED pt underwent evaluation with CT Abd/pelvis (04/02/18) which noted some air and fluid distention of small bowel loops predominantly in the left side of the abdomen with an apparent transition somewhere near the terminal ileum, concerning for at least a partial small bowel obstruction, cortical scarring in the right kidney, and some fluid distention of the urinary bladder. Pt was given IVF in the ED and is currently NPO. She denies any further N/V. She is passing some flatus. No fevers, chills, chest pain, SOB or palpitations. 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 - Trace mitral valve regurgitation - Moderate tricuspid regurgitation - Estimated pulmonary arterial pressure is 43.9 mmHg. Past Surgical History Left lower extremity peripheral angiography with percutaneous transluminal angioplasty of left superficial femoral artery and rotational atherectomy left superficial femoral artery on 01/04/[address] Llanos Peripheral angiography with bilateral common iliac artery atherectomy and percutaneous endovascular stenting with balloon expandable stents in bilateral common iliac arteries on 12/06/[address] Llanos Left total knee arthroplasty on 09/11/[address] Whitman [facility] on 05/19/[address] 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 Excision of Bakers cyst, left knee Exploratory laparotomy with PABLITO in 1984 for SBO NATALIE with BSO Rotator cuff repair Reported Medications -Methotrexate 2.5 Mg/1 Ml Inj 7 Mg WEEKLY -Isosorbide Mononitrate ER 60 Mg PO DAILY -Novolin N Inj 25 Units SQ BID -Lovaza (Wrbjf-5-Lxxu Ethyl Esters) 2 Gm PO BID -Nitrostat SL (Nitroglycerin) 0.4 Mg Subl 0.4 Mg SL DIRECTED PRN -Metoprolol Tartrate 50 Mg PO BID -Gabapentin 300 Mg PO QID -Folic Acid 1 Mg PO DAILY -Plavix 75 Mg PO DAILY -Klonopin 0.25 Mg PO HS PRN -Vitamin D 2,000 Units PO EVERY OTHER DAY -Aspirin 81 Mg CHEW DAILY -Norvasc 2.5 Mg PO DAILY -Ventolin Hfa 18 GM Inh 90 Mcg/Act Aer 2 Puff INH Q4-6H PRN Family History Mother with hx of stomach cancer Brother with hx of liver cirrhosis Social History Hx of tobacco use, quit in 1994 Denies any regular alcohol use Denies any illicit drug use Pt lives locally with her DS: Diagnosis - Discharge Diagnosis (1) Partial small bowel obstruction Status: Acute (2) HTN (hypertension) Status: Chronic (3) Hyperlipidemia Status: Chronic (4) GERD (gastroesophageal reflux disease) Status: Chronic (5) Diabetes Status: Chronic (6) PAD (peripheral artery disease) Status: Chronic (7) CAD (coronary artery disease) Status: Chronic DS: Medications - Discharge Medications Prescriptions: amlodipine [Norvasc] 5 mg PO BID 30 Days #60 tab metoprolol tartrate 12.5 mg PO BID 30 Days #30 tab DS: Summary Hospital Course: Assessment and Plan - Assessment (1) Partial small bowel obstruction Code(s): K56.600 - Partial intestinal obstruction, unspecified as to cause Status: Acute Plan: Partial SBO Abd cramping/pain - Pt is a 72 y/o female with CAD with hx of [place], HTN, Hyperlipidemia, PAD, COPD, 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 - She presented to the ED at [facility] [place] on 04/02/18 with complaints of abdominal pain and distension. 6 days ago after eating dinner out she developed severe N/V which persisted through the night and she went to the ED at [facility] [place] on 03/29/18 and received IVF hydration and antiemetics and was discharged home. She did not have any further N/V but reported that her abdomen started becoming more distended and bloated feeling. She has not had a BM since 03/28/18. - CT Abd/pelvis (04/02/18) --> some air and fluid distention of small bowel loops predominantly in the left side of the abdomen with an apparent transition somewhere near the terminal ileum, concerning for at least a partial small bowel obstruction, cortical scarring in the right kidney, and some fluid distention of the urinary bladder. -SBFT. dilated small bowel. no transition point. contrast passing. probably psbo - Encourage OOB/ambulation - PT evaluation - Pain control with IV Ofirmev, pt did not want anything stronger at this time - Antiemetics PRN - Supportive care - DVT prophylaxis with SCDs advance diet today and if tolerating...dc home cont ambulation pt denies any uti sx's and wants to avoid abx bb lowered due to milly. will increase amlodipine for elevated bp. HTN - Resume home meds - Vasotec PRN - Monitor closely Diabetes mellitus - NovoLog SSI - Accu checks - Pt normally takes Novolin N 25 units BID at home CAD with hx of [place] - Pts last [facility] on 05/19/[address] Maldonado --> High grade disease in the ostium of the ramus intermedius, recommended medical therapy - Cont. home meds PAD - Pt has had several recent revascularization procedures with Dr. Llanos - Cont. Plavix and ASA (2) HTN (hypertension) Code(s): I10 - Essential (primary) hypertension Status: Chronic (3) Hyperlipidemia Code(s): E78.5 - Hyperlipidemia, unspecified Status: Chronic (4) GERD (gastroesophageal reflux disease) Code(s): K21.9 - Gastro-esophageal reflux disease without esophagitis Status: Chronic (5) Diabetes Code(s): E11.9 - Type 2 diabetes mellitus without complications Status: Chronic (6) PAD (peripheral artery disease) Code(s): I73.9 - Peripheral vascular disease, unspecified Status: Chronic (7) CAD (coronary artery disease) Code(s): I25.10 - Atherosclerotic heart disease of [place] coronary artery without angina pectoris Status: Chronic Documented By: Juarez Cornejo MD 04/06/18 1001 Signed By: <Electronically signed by Juarez Cornejo MD> 04/06/18 1600 - Time Spent with Patient (1) Partial small bowel obstruction Code(s): K56.600 - Partial intestinal obstruction, unspecified as to cause Status: Acute Plan: Partial SBO Abd cramping/pain - Pt is a 72 y/o female with CAD with hx of [place], HTN, Hyperlipidemia, PAD, COPD, 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 - She presented to the ED at [facility] [place] on 04/02/18 with complaints of abdominal pain and distension. 6 days ago after eating dinner out she developed severe N/V which persisted through the night and she went to the ED at [facility] [place] on 03/29/18 and received IVF hydration and antiemetics and was discharged home. She did not have any further N/V but reported that her abdomen started becoming more distended and bloated feeling. She has not had a BM since 03/28/18. - CT Abd/pelvis (04/02/18) --> some air and fluid distention of small bowel loops predominantly in the left side of the abdomen with an apparent transition somewhere near the terminal ileum, concerning for at least a partial small bowel obstruction, cortical scarring in the right kidney, and some fluid distention of the urinary bladder. -SBFT. dilated small bowel. no transition point. contrast passing. probably psbo - Encourage OOB/ambulation - PT evaluation - Pain control with IV Ofirmev, pt did not want anything stronger at this time - Antiemetics PRN - Supportive care - DVT prophylaxis with SCDs advance diet today and if tolerating...dc home cont ambulation pt denies any uti sx's and wants to avoid abx bb lowered due to milly. will increase amlodipine for elevated bp. HTN - Resume home meds - Vasotec PRN - Monitor closely Diabetes mellitus - NovoLog SSI - Accu checks - Pt normally takes Novolin N 25 units BID at home CAD with hx of [place] - Pts last [facility] on 05/19/[address] Maldonado --> High grade disease in the ostium of the ramus intermedius, recommended medical therapy - Cont. home meds PAD - Pt has had several recent revascularization procedures with Dr. Llanos - Cont. Plavix and ASA (2) HTN (hypertension) Code(s): I10 - Essential (primary) hypertension Status: Chronic (3) Hyperlipidemia Code(s): E78.5 - Hyperlipidemia, unspecified Status: Chronic (4) GERD (gastroesophageal reflux disease) Code(s): K21.9 - Gastro-esophageal reflux disease without esophagitis Status: Chronic (5) Diabetes Code(s): E11.9 - Type 2 diabetes mellitus without complications Status: Chronic (6) PAD (peripheral artery disease) Code(s): I73.9 - Peripheral vascular disease, unspecified Status: Chronic (7) CAD (coronary artery disease) Code(s): I25.10 - Atherosclerotic heart disease of [place] coronary artery without angina pectoris Status: Chronic - Quality: VTE Deep Vein Thrombosis/Pulmonary Embolism Present on Admission: No Exam Vital signs: Vital Signs 04/05/18 16:00 04/05/18 20:00 04/06/18 00:00 Temperature 97.7 F 97.6 F 97.9 F Pulse Rate 59 L 64 62 Respiratory Rate 14 16 16 Blood Pressure 166/73 H 185/79 H 151/68 H Pulse Oximetry 99 98 96 04/06/18 04:00 04/06/18 08:00 04/06/18 12:00 Temperature 98 F 97.6 F 97.5 F L Pulse Rate 53 L 54 L 51 L Respiratory Rate 16 16 16 Blood Pressure 130/81 173/71 H 146/63 H Pulse Oximetry 96 95 95 Intake & Output 04/05/18 04/06/18 04/06/18 18:59 06:59 18:59 Intake Total 280 / 280 Balance 280 / 280 Weight 68.1 kg Intake: Oral 280 / 280 Other: # Voids 3 1 Date of Last Bowel Movement 04/04/18 04/05/18 # Bowel Movements 2 heart reg lung cta abd s/nt/nabs ext no edema Results Procedures completed during hospitalization: sbft ct abd/pelvis see above Labs on day of discharge: Labs from last 24 hours 04/06/18 04/06/18 04/05/18 12:07 07:51 21:14 POC Glucose 163 H 131 H 149 H 04/05/18 04/05/18 18:04 15:47 POC Glucose 126 H 121 H - Impressions ITS Impressions Abdomen/Pelvis CT 04/03/18 01:30 CONCLUSION: 1. There is some air and fluid distention of small bowel loops predominantly in the left side of the abdomen with an apparent transition somewhere near the terminal ileum. Findings are concerning for at least a partial small bowel obstruction. 2. Cortical scarring in the right kidney. 3. Some fluid distention of the urinary bladder. Chest X-Ray 04/03/18 01:30 CONCLUSION: 1. Minimal linear atelectasis or scarring above the left hemidiaphragm. 2. Lungs are otherwise clear. Heart size is normal. Abdomen X-Ray 04/04/18 07:00 CONCLUSION: Unremarkable study. Small Bowel X-Ray 04/05/18 00:00 CONCLUSION: Dilated small bowel. The patient does appear to have a possible partial obstruction on the prior CT examination with a transition point at the distal ileum. Contrast clearly seen to extend into the colon on the three-hour image suggesting any obstruction is partial. Discharge Plan - Discharge Disposition Patient Disposition: 01 Discharge Home - Discharge Condition Condition: Stable - Discharge Order Discharge Orders: Discharge Order (Routine); Ordered 04/06/18 Ordered By: Juarez Cornejo - Discharge Details Anticipated Discharge Date: 04/06/18 Discharge Comment: ok to dc home today. - Physicians Team Primary Care Provider: Jesus Hoskins Attending Provider: Chris Berg Other Providers: Anibal Kaiser MD
[2018-04-06 15:55] VITALS: PULSE 53
[2018-04-07] MEDS ORDERED: amLODIPine 10 MG Tablet PO SCH (09:00)
== END 2018-04-06 16:37 | disposition home or self-care (01) ==
LOC: NEPC 21:24 → NEDA 04-03 04:46 → N03 04-03 16:15 → N05 04-05 20:21
PROVIDERS: ADMIT Hospitalist; ATTEND Hospitalist